=== PATIENT | female | born 1930 | race Caucasian/White ===

== ENCOUNTER → 2017-10-26 | Outpatient (CLI) | payer MEDICARE, MEDICAID ==
[2017-09-02 09:29] VITALS: BMI 19.8
[~2017-10-26] MED LIST: ACE325 PO; ACET-2043 PO; ACID1TAB2 PO; ALTE2VIA2 IVP; AMOX-556 PO; ASCO1TAB5 CHEW; ASPERCREME TOP; ASPI-1471 PO; ASPI81TA94 PO; BISA-236 RC; BISA10SU66 PR; CALC-1173 PO; CALC-734 PO; CALC1TAB46 PO; CALC200T16 PO; CALC3.7S10; CALC3.7S10 NS; CALC3.7S6 NS; CALC600T63 PO; CEF300 PO; CEFT2VIA53 IV; CELE100C79 PO; CEP500 PO; CEPH-13 PO; CIPR-345 PO; CLO10 MT; Calcium Carbonate/Vitamin D3 PO; DICL500C66 PO; DILT120C18 PO; DILT120T13 PO; DILT240C76 PO; DILT240T PO; DOCU-202 PO; DOCU-416 PO; DULO30CA6 PO; ESTR42.59 VG; FOL1 PO; FOLI-68 PO; GABA-547 PO; GUAI600T57 PO; L.AC1CAP6 PO; LACT PO; LACT-214 PO; LAN30PT PO; LANS15CA54 PO; LEV112 PO; LEV125 PO; LEVO-3 PO; LEVO137T23 PO; LEVO150T78 PO; LEVO75TA73 PO; LEVO88TA45 PO; LID5T TP; LIDO1ADH44 TOP; LIDO20SO21 MM; LIDO700A19 TP; LIDO700A29 TD; MECL12.5 PO; MECL25TA9 PO; METH2.5T43 PO; METO-259 PO; METO50TA19 PO; MOM PO; NITR-105 PO; NYST15PO4 TP; OMEP-125 PO; ONDA4TAB PO; OXYC-865 PO; OXYC-869 PO; OXYC10TA19 PO; OXYC10TA67 PO; OXYC15TA PO; OXYC5CAP21 PO; OXYC5TAB38 PO; OXYGENHOME INH; OXYM-15 ENA; OXYM15MI14 ENA; PER PO; POLY17PO21 PO; PRE5 PO; RANI-375 PO; SULF-198 PO; TRAM100T22 PO; VANC750P10 IV; VIT-7 PO; WAR1 PO; WAR25 PO; WARF-18 PO; WARF1TAB63 PO; WARF2.5T11 PO; WARF3TAB43 PO; WARF4TAB54 PO; [UNRECOGNIZED DRUG - CODE] IVP; [UNRECOGNIZED DRUG - CODE] PO; [UNRECOGNIZED DRUG - CODE] PO; potassium PO
== END ==
LOC: AMB 18:04
PROVIDERS: ATTEND Nurse Practitioner
DX: R53.81 Other malaise (principal)
CPT/HCPCS: A0425; A0428

== ENCOUNTER → 2017-11-06 | Outpatient (CLI) | payer MEDICARE, MEDICAID ==
[2017-09-02 09:29] VITALS: BMI 19.8
[~2017-11-06] MED LIST changes: -VANC750P10 IV; +VANC750P6 IV
[2017-11-06 08:33] LABS: INR 2.22
== END ==
LOC: ZZSPRING 00:49
PROVIDERS: ATTEND Family Medicine
DX: Z51.81 Encounter for therapeutic drug level monitoring (principal); Z79.01 Long term (current) use of anticoagulants
CPT/HCPCS: 36415; 85610

== ENCOUNTER → 2017-11-12 | Outpatient (CLI) | payer MEDICARE, MEDICAID ==
[2017-09-02 09:29] VITALS: BMI 19.8
[~2017-11-12] MED LIST changes: +VANC750P10 IV; -VANC750P6 IV
== END ==
LOC: ZZSPRING 01:52
PROVIDERS: ATTEND Family Medicine
DX: E03.9 Hypothyroidism, unspecified (principal)
CPT/HCPCS: 36415; 84443

== ENCOUNTER → 2017-11-18 | Outpatient (CLI) | payer MEDICARE, MEDICAID ==
[2017-09-02 09:29] VITALS: BMI 19.8
== END ==
LOC: LAB 14:07
PROVIDERS: ATTEND Family Medicine
DX: M81.0 Age-related osteoporosis without current pathological fracture (principal)
CPT/HCPCS: 36415; 82306

== ENCOUNTER → 2017-12-03 | Outpatient (CLI) | payer MEDICARE, MEDICAID ==
[2017-09-02 09:29] VITALS: BMI 19.8
[~2017-12-03] MED LIST changes: +DEN60I SUBQ; +METH57CR TP
[2017-12-03 09:32] LABS: INR 1.75
== END ==
LOC: ZZSPRING 02:32
PROVIDERS: ATTEND Family Medicine
DX: Z51.81 Encounter for therapeutic drug level monitoring (principal); Z79.01 Long term (current) use of anticoagulants
CPT/HCPCS: 36415; 85610

== ENCOUNTER → 2017-12-10 | Outpatient (CLI) | payer MEDICARE, MEDICAID ==
[2017-09-02 09:29] VITALS: BMI 19.8
[~2017-12-10] MED LIST changes: +NYST15CR32 TP
[2017-12-10 08:59] LABS: INR 1.67
== END ==
LOC: ZZSPRING 02:04
PROVIDERS: ATTEND Family Medicine
DX: Z51.81 Encounter for therapeutic drug level monitoring (principal); Z79.01 Long term (current) use of anticoagulants
CPT/HCPCS: 36415; 85610

== ENCOUNTER → 2017-12-13 | Outpatient (REF) | payer MEDICARE, MEDICAID ==
[2017-09-02 09:29] VITALS: BMI 19.8
== END ==
LOC: ZZSPRING 22:37
PROVIDERS: ATTEND Family Medicine
DX: R30.0 Dysuria (principal); R35.0 Frequency of micturition; B96.89 Other specified bacterial agents as the cause of diseases classified elsewhere
CPT/HCPCS: 81001; 87088

== ENCOUNTER → 2017-12-17 | Outpatient (CLI) | payer MEDICARE, MEDICAID ==
[2017-09-02 09:29] VITALS: BMI 19.8
[~2017-12-17] MED LIST changes: -WARF-18 PO; +WARF1TAB15 PO; -WARF1TAB63 PO; +WARF3TAB14 PO; -WARF3TAB43 PO; +WARF5TAB23 PO
[2017-12-17 09:15] LABS: INR 1.64
== END ==
LOC: ZZSPRING 01:42
PROVIDERS: ATTEND Family Medicine
DX: Z51.81 Encounter for therapeutic drug level monitoring (principal); Z79.01 Long term (current) use of anticoagulants
CPT/HCPCS: 36415; 85610

== ENCOUNTER → 2017-12-24 | Outpatient (CLI) | payer MEDICARE, MEDICAID ==
[2017-09-02 09:29] VITALS: BMI 19.8
[2017-12-24 08:44] LABS: INR 2.03
== END ==
LOC: ZZSPRING 03:02
PROVIDERS: ATTEND Family Medicine
DX: E03.9 Hypothyroidism, unspecified (principal); Z79.01 Long term (current) use of anticoagulants
CPT/HCPCS: 36415; 84439; 84443; 85610

== ENCOUNTER → 2018-01-07 | Outpatient (CLI) | payer MEDICARE, MEDICAID ==
[2017-09-02 09:29] VITALS: BMI 19.8
[2018-01-07 09:03] LABS: INR 2.13
== END ==
LOC: ZZSPRING 00:35
PROVIDERS: ATTEND Family Medicine
DX: Z51.81 Encounter for therapeutic drug level monitoring (principal); E03.9 Hypothyroidism, unspecified; Z79.01 Long term (current) use of anticoagulants
CPT/HCPCS: 36415; 84436; 84443; 85610

== ENCOUNTER → 2018-01-14 | Outpatient (CLI) | payer MEDICARE, MEDICAID ==
[2017-09-02 09:29] VITALS: BMI 19.8
== END ==
LOC: LAB 11:08
PROVIDERS: ATTEND Family Medicine
DX: R30.0 Dysuria (principal); B96.89 Other specified bacterial agents as the cause of diseases classified elsewhere
CPT/HCPCS: 81001; 87088

== ENCOUNTER → 2018-01-21 | Outpatient (CLI) | payer MEDICARE, MEDICAID ==
[2017-09-02 09:29] VITALS: BMI 19.8
[~2018-01-21] MED LIST changes: +CEPH500C24 PO
[2018-01-21 09:05] LABS: INR 1.93
== END ==
LOC: ZZSPRING 01-20 08:18
PROVIDERS: ATTEND Family Medicine
DX: Z79.01 Long term (current) use of anticoagulants (principal); N39.0 Urinary tract infection, site not specified
CPT/HCPCS: 36415; 85610

== ENCOUNTER → 2018-02-04 | Outpatient (CLI) | payer MEDICARE, MEDICAID ==
[2017-09-02 09:29] VITALS: BMI 19.8
[~2018-02-04] MED LIST changes: +LEVO175T42 PO
[2018-02-04 08:41] LABS: INR 2.04
== END ==
LOC: ZZSPRING 02:45
PROVIDERS: ATTEND Family Medicine
DX: E03.9 Hypothyroidism, unspecified (principal); Z79.01 Long term (current) use of anticoagulants
CPT/HCPCS: 36415; 85610

== ENCOUNTER → 2018-03-04 | Outpatient (CLI) | payer MEDICARE, MEDICAID ==
[2017-09-02 09:29] VITALS: BMI 19.8
[~2018-03-04] MED LIST changes: +WARF4TAB15 PO; -WARF4TAB54 PO
[2018-03-04 09:06] LABS: INR 2.37
== END ==
LOC: ZZSPRING 01:12
PROVIDERS: ATTEND Family Medicine
DX: I48.2 Chronic atrial fibrillation (principal); Z79.01 Long term (current) use of anticoagulants
CPT/HCPCS: 36415; 84443; 85610

== ENCOUNTER 2018-03-10 20:29 | Inpatient (IN) | payer MEDICARE, MEDICAID ==
[~2018-03-10] VITALS: Ht 172.7 cm; Wt 56.0 kg
[~2018-03-10 20:29] MED LIST changes: -ACET-2146 PO; -CEPH500T7 PO; -DEXT15DR19 OP; -FURO40TA35 PO; -OXYC-823 PO; -POTA-23 PO; -PRED15SO5 OP
--- NOTE | 2018-03-10 20:49 | ER Report ---
History and Physical Time Seen By MD: 20:38 Hx. of Stated Complaint: chest pain, sob that started tonight around dinner time HPI/ROS Patient's is an 88-year-old female transferred from care home for episode of chest pain. Patient is a clear and good historian. She notes that for the past 2 weeks she has had chest pain episodes in the evening. She has been at rest when these occurred. She states that she feels a tightness in her chest and it is associated with feeling short of breath. She states these episodes have lasted up to 30 minutes. She has never had these during the morning or early afternoon. It has never awakened her from sleep. Tonight, it seemed to be a little stronger and lasting longer. This is what prompted her to tell staff and resulted in her transfer. Patient notes that symptoms have improved somewhat in route. She still notes some persisting pressure. She rates it as a 4 on a 10 scale. She states typically she has had it in the evening it is been more of a 7 on a 10 scale. Patient note associated mild shortness of breath. However at this time, she is not feeling short of breath. She denies nausea. Denies abdominal pain. She denies radiation of pain or pressure into the arms or the neck. She does have some off-and-on back pain that appears to be more musculoskeletal in nature by her history. Patient does note that the chest pain episodes have occurred around dinnertime. But she does not note any significant change of either improving or worsening with food or fluid intake REVIEW OF SYSTEMS: Constitutional: No fever, chills Eyes: Negative ENT: Denies sore throat or ear pain Respiratory: As above. Denies cough or wheeze Cardiac: As above. Gastrointestinal: Denies abdominal pain, nausea, or vomiting Genitourinary: Negative Musculoskeletal: No back pain. She does note chronic swelling in her lower extremities. Skin: No acute rashes Neurological: Denies headache or acute neurologic findings Allergies: Coded Allergies: codeine (Unverified Allergy, Severe, ANAPHYLAXIS, 03/10/18) morphine (Verified Allergy, Severe, ANAPHYLAXIS, 03/10/18) Home Meds Active Scripts Oxycodone HCl (Oxycodone HCl ER) 15 Mg Tab.er.12h, 15 MG PO BID for 30 Days, # 60 TAB Prov:NADJA SAMSON MD 02/28/18 Levothyroxine Sodium (LEVOTHYROXINE SODIUM) 175 Mcg Tablet, 175 MCG PO QDAY for 90 Days, #90 TAB Prov:NADJA SAMSON MD 02/28/18 Oxycodone Hcl (OXYCODONE HCL) 5 Mg Tablet, 5 MG PO QDAY Y for pain for 30 Days, #30 TAB Prov:NADJA SAMSON MD 02/14/18 Cephalexin Monohydrate (CEPHALEXIN) 500 Mg Cap, 500 MG PO BID for 7 Days, #14 CAP Prov:NADJA SAMSON MD 01/17/18 Warfarin Sodium (WARFARIN SODIUM) 3 Mg Tablet, 3 MG PO DIRECTED, #90 TAB 1 Refill As directed. Prov:NADJA SAMSON MD 01/10/18 Diltiazem Hcl (DILTIAZEM 24HR ER) 240 Mg Cap.er.24h, 1 CAP PO QDAY, #90 TAB 1 Refill Prov:NADJA SAMSON MD 01/03/18 NYSTATIN 890967 UNT/ML Topical Cream (NYSTATIN 049123 UNT/ML Topical Cream) 15 Gm Cream..g., 1 JOSEF TP PRN for 30 Days, #1 TUBE Prov:NADJA SAMSON MD 12/17/17 Methyl Salicylate/Menth/Camph (BENGAY ULTRA STRENGTH CRM) 57 Gm Cream..g., 1 JOSEF TP QID Y for PRN, #1 TUBE 11 Refills Apply topically to back and ribs QID PRN Prov:NADJA SAMSON MD 12/04/17 Ranitidine Hcl (ZANTAC 75) 75 Mg Tablet, 1 TAB PO DAILY, #90 TAB 4 Refills Prov:NADJA SAMSON MD 12/03/17 Lactose-Free Food (ENSURE PLUS) 237 Ml Liquid, 1 BOTTLE PO TID, #90 BOTTLE 11 Refills [place] flavor Prov:NADJA SAMSON MD 10/24/17 Estradiol (ESTRACE) 42.5 Gm Cream.appl, 1 GM VG twice weekly for 90 Days, #90 JOSEF Prov:NADJA SAMSON MD 10/24/17 Gabapentin (GABAPENTIN) 100 Mg Capsule, 1-3 CAP PO BID, #180 CAPSULE 11 Refills take one cap in the am and three cap in the pm Prov:NADJA SAMSON MD 10/15/17 Polyethylene Glycol 3350 (POLYETHYLENE GLYCOL 3350) 17 Gm Powd.pack, 17 GM PO QDAY, #30 PACKET Prov:DAVID MERCADO MD 09/05/17 Calcium Carbonate (CALCIUM ANTACID) 200 Mg Tab.chew, 500-1000 MG PO QID Y for heartburn, #100 TAB.CHEW Prov:DAVID MERCADO MD 09/05/17 Acetaminophen (ACETAMINOPHEN) 500 Mg Tablet, 500 MG PO Q6H Y for PAIN, #100 TAB Prov:DAVID MERCADO MD 09/05/17 Acetaminophen (ACETAMINOPHEN) 500 Mg Tablet, 500 MG PO Q6H, #120 TAB 11 Refills Prov:JENNIFER MILLS APRN [employer] 08/29/17 Docusate Sodium (COLACE) 100 Mg Capsule, 1 CAP PO BID, #180 CAPSULE 3 Refills Prov:JENNIFER MILLS APRN [employer] 03/11/17 Bisacodyl (DULCOLAX) 10 Mg Supp.rect, 1 SUPP.RECT RC DAILY Y for CONSTIPATION, # 15 SUPP.RECT 11 Refills Prov:MURTAZA CANTU MD 02/13/17 Reported Medications Calcium Carbonate/Vitamin D3 (CALCIUM 500 + D TABLET) 1 Each Tablet, 1 TAB PO BID 10/30/17 Vit A,C & E/Lutein/Minerals (OCUVITE TABLET) 1 Each Tablet, 1 EACH PO DAILY 10/07/17 Ascorbic Acid/Vitamin E/Biotin (Hair Skin Nails-Biotin Gummies) 1 Each Tab.chew , 1 TAB CHEW DAILY 10/07/17 Warfarin Sodium (WARFARIN SODIUM) 5 Mg Tablet, 3 MG PO QDAY, TAB 3 mg Sun, Mon, , Wed, , Fri, Sat. Recheck INR. 1.5 mg Mon. Recheck IN. Retirement anticoagulation therapy 09/02/17 Magnesium Hydroxide (MILK OF MAGNESIA) 400 Mg/5 Ml Oral.susp, 30 ML PO DAILY Y for CONSTIPATION, BOTTLE 12/31/16 Oxygen (OXYGEN) Inha, 1 L INH, L 11/23/16 Past Medical/Surgical History Past medical history is significant for: Atrial fibrillation Urinary tract infections Hypothyroidism Rheumatoid arthritis History of osteomyelitis of the spine in 2017 Fractures right hip and compression fractures 2017 Hx Smoking: No Smoking Status: Former Smoker Exposure to Second Hand Smoke?: Yes Hx Substance Use Disorder: No Hx Alcohol Use: No Constitutional Vital Sign - Last 24 Hours 03/10/18 03/10/18 03/10/18 03/10/18 20:27 20:31 20:44 20:44 Temp 98.9 Pulse 92 89 Resp 18 18 B/P (MAP) 112/76 112/76 (88) Pulse Ox 86 97 O2 Delivery Room Air O2 Flow Rate 2.0 03/10/18 03/10/18 03/10/18 03/10/18 20:49 21:05 21:19 21:30 Pulse 90 94 Resp 26 16 B/P (MAP) 144/84 (104) 131/83 (99) Pulse Ox 93 92 03/10/18 03/10/18 03/10/18 03/10/18 21:34 21:49 22:00 22:04 Pulse 92 ??? 101 Resp 20 26 B/P (MAP) 142/86 (104) Pulse Ox 94 95 03/10/18 03/10/18 03/10/18 22:19 22:34 22:41 Pulse 106 103 108 Resp 30 Pulse Ox 95 97 Physical Exam General Appearance: The patient is alert, has no immediate need for airway protection and no signs of toxicity. [ ] Eyes: Pupils equal and round no pallor or injection. ENT, Mouth: Mucous membranes are moist. Respiratory: There are no retractions or increased work of breathing. Patient does have crackles in both lung lyons without overt rales. No wheezes are noted. Cardiovascular: Irregular rate and rhythm. 2/6 systolic murmur[ ] Gastrointestinal: Abdomen is soft and non tender, no masses, bowel sounds normal. Neurological: Patient is alert oriented appropriate. Cranial nerves II through XII are grossly intact. There are no focal or cerebellar findings noted. Skin: Warm and dry, no rashes. Musculoskeletal: Neck is supple non tender. Lower extremities show bilateral pedal edema left side greater than right with positive pitting to mid tibia. Upper extremities are unremarkable. Back is nontender to palpation but patient does complain of movement discomfort which is typical for her. DIFFERENTIAL DIAGNOSIS: After history and physical exam differential diagnosis was considered for chest pain including but not limited to myocardial ischemia, pericarditis pulmonary embolus, chest wall pain, pleural inflammation and pulmonary infectious causes. I also considered congestive heart failure. I considered GI etiologies including gastroesophageal reflux Medical Decision Making Data Points Result Diagram: 03/10/18203703/10/182037 Laboratory Hematology Test 03/10/18 20:38 03/10/18 21:30 03/10/18 22:40 Red Blood Count 3.81 M/uL (4.17-5.56) Mean Corpuscular Volume 96.5 fL (80.0-96.0) Mean Corpuscular Hemoglobin 32.8 pg (26.0-33.0) Mean Corpuscular Hemoglobin Concent 34.0 g/dL (32.0-36.0) Red Cell Distribution Width 13.0 % (11.5-14.5) Mean Platelet Volume 9.5 fL (7.2-11.1) Neutrophils (%) (Auto) 58.8 % (39.4-72.5) Lymphocytes (%) (Auto) 21.5 % (17.6-49.6) Monocytes (%) (Auto) 14.1 % (4.1-12.4) Eosinophils (%) (Auto) 4.4 % (0.4-6.7) Basophils (%) (Auto) 1.2 % (0.3-1.4) Nucleated RBC Relative Count (auto) 0.0 /100WBC Neutrophils # (Auto) 1.9 K/uL (2.0-7.4) Lymphocytes # (Auto) 0.7 K/uL (1.3-3.6) Monocytes # (Auto) 0.5 K/uL (0.3-1.0) Eosinophils # (Auto) 0.1 K/uL (0.0-0.5) Basophils # (Auto) 0.0 K/uL (0.0-0.1) Nucleated RBC Absolute Count (auto) 0.00 K/uL Prothrombin Time 25.1 seconds (12.0-14.4) Prothromb Time International Ratio 2.20 Sodium Level 134 mmol/L (137-145) Potassium Level 4.7 mmol/L (3.5-5.0) Chloride Level 91 mmol/L (98-107) Carbon Dioxide Level 29 mmol/L (22-31) Blood Urea Nitrogen 27 mg/dl (7-18) Creatinine 0.90 mg/dl (0.52-1.04) Glomerular Filtration Rate Calc 59.4 Random Glucose 123 mg/dl (75-110) Calcium Level 9.5 mg/dl (8.4-10.2) Total Bilirubin 0.6 mg/dl (0.2-1.3) Aspartate Amino Transf (AST/SGOT) 26 U/L (0-35) Alanine Aminotransferase (ALT/SGPT) 18 U/L (0-56) Alkaline Phosphatase 85 U/L (0-126) B-Type Natriuretic Peptide 772 pg/ml (0-100) Total Protein 7.7 gm/dl (6.3-8.2) Albumin 4.1 g/dl (3.5-5.0) Urine Color Yellow Urine Clarity Slightly-cloudy Urine pH 8.0 pH (4.8-9.5) Urine Specific [place] 1.014 Urine Protein Negative mg/dL (NEGATIVE) Urine Glucose (UA) Negative mg/dL (NEGATIVE) Urine Ketones Negative mg/dL (NEGATIVE) Urine Blood Negative (NEGATIVE) Urine Nitrite Negative (NEGATIVE) Urine Bilirubin Negative (NEGATIVE) Urine Urobilinogen Negative mg/dL (0.2-1.9) Urine Leukocyte Esterase Large (NEGATIVE) Urine RBC 2 /HPF (0-2/HPF) Urine WBC 18 /HPF (0-5/HPF) Urine Squamous Epithelial Cells Many /LPF (</=FEW) Urine Triple Phosphate Crystals Few /HPF (NONE) Urine Bacteria Negative /HPF (NONE-FEW) Urine Mucus None /HPF (NONE-FEW) Troponin I < 0.012 ng/ml Chemistry Test 03/10/18 20:38 03/10/18 21:30 03/10/18 22:40 White Blood Count 3.3 k/uL (4.5-11.0) Red Blood Count 3.81 M/uL (4.17-5.56) Hemoglobin 12.5 g/dL (12.0-16.0) Hematocrit 36.7 % (34.0-47.0) Mean Corpuscular Volume 96.5 fL (80.0-96.0) Mean Corpuscular Hemoglobin 32.8 pg (26.0-33.0) Mean Corpuscular Hemoglobin Concent 34.0 g/dL (32.0-36.0) Red Cell Distribution Width 13.0 % (11.5-14.5) Platelet Count 153 K/uL (150-450) Mean Platelet Volume 9.5 fL (7.2-11.1) Neutrophils (%) (Auto) 58.8 % (39.4-72.5) Lymphocytes (%) (Auto) 21.5 % (17.6-49.6) Monocytes (%) (Auto) 14.1 % (4.1-12.4) Eosinophils (%) (Auto) 4.4 % (0.4-6.7) Basophils (%) (Auto) 1.2 % (0.3-1.4) Nucleated RBC Relative Count (auto) 0.0 /100WBC Neutrophils # (Auto) 1.9 K/uL (2.0-7.4) Lymphocytes # (Auto) 0.7 K/uL (1.3-3.6) Monocytes # (Auto) 0.5 K/uL (0.3-1.0) Eosinophils # (Auto) 0.1 K/uL (0.0-0.5) Basophils # (Auto) 0.0 K/uL (0.0-0.1) Nucleated RBC Absolute Count (auto) 0.00 K/uL Prothrombin Time 25.1 seconds (12.0-14.4) Prothromb Time International Ratio 2.20 Glomerular Filtration Rate Calc 59.4 Calcium Level 9.5 mg/dl (8.4-10.2) Total Bilirubin 0.6 mg/dl (0.2-1.3) Aspartate Amino Transf (AST/SGOT) 26 U/L (0-35) Alanine Aminotransferase (ALT/SGPT) 18 U/L (0-56) Alkaline Phosphatase 85 U/L (0-126) B-Type Natriuretic Peptide 772 pg/ml (0-100) Total Protein 7.7 gm/dl (6.3-8.2) Albumin 4.1 g/dl (3.5-5.0) Urine Color Yellow Urine Clarity Slightly-cloudy Urine pH 8.0 pH (4.8-9.5) Urine Specific [place] 1.014 Urine Protein Negative mg/dL (NEGATIVE) Urine Glucose (UA) Negative mg/dL (NEGATIVE) Urine Ketones Negative mg/dL (NEGATIVE) Urine Blood Negative (NEGATIVE) Urine Nitrite Negative (NEGATIVE) Urine Bilirubin Negative (NEGATIVE) Urine Urobilinogen Negative mg/dL (0.2-1.9) Urine Leukocyte Esterase Large (NEGATIVE) Urine RBC 2 /HPF (0-2/HPF) Urine WBC 18 /HPF (0-5/HPF) Urine Squamous Epithelial Cells Many /LPF (</=FEW) Urine Triple Phosphate Crystals Few /HPF (NONE) Urine Bacteria Negative /HPF (NONE-FEW) Urine Mucus None /HPF (NONE-FEW) Troponin I < 0.012 ng/ml Coagulation Test 03/10/18 20:38 Prothrombin Time 25.1 seconds Prothromb Time International Ratio 2.20 Urinalysis Test 03/10/18 21:30 Urine Color Yellow Urine Clarity Slightly-cloudy Urine pH 8.0 pH (4.8-9.5) Urine Specific [place] 1.014 Urine Protein Negative mg/dL (NEGATIVE) Urine Glucose (UA) Negative mg/dL (NEGATIVE) Urine Ketones Negative mg/dL (NEGATIVE) Urine Blood Negative (NEGATIVE) Urine Nitrite Negative (NEGATIVE) Urine Bilirubin Negative (NEGATIVE) Urine Urobilinogen Negative mg/dL (0.2-1.9) Urine Leukocyte Esterase Large (NEGATIVE) Urine RBC 2 /HPF (0-2/HPF) Urine WBC 18 /HPF (0-5/HPF) Urine Squamous Epithelial Cells Many /LPF (</=FEW) Urine Triple Phosphate Crystals Few /HPF (NONE) Urine Bacteria Negative /HPF (NONE-FEW) Urine Mucus None /HPF (NONE-FEW) EKG/Imaging EKG Interpretation 12 lead EKG: Rhythm: Atrial fibrillation with a rate 75-100 Left axis deviation Patient has delayed R-wave progression consistent with age indeterminate anteroseptal infarct. There do not appear to be acute ST-T changes. Twelve-lead EKG is somewhat similar to twelve-lead noted on the chart though there are some differences in the precordial lead transition with a currently more pronounced poor R-wave progression that could be consistent with previous ischemic insult Monitor Interpretation: Atrial Fibrillation ED Course/Re-evaluation ED Course Data is reviewed. CBC, chemistries, and troponin are reassuring. INR is as expected. These results are reviewed with previous and no significant change. Chest x-ray shows increased interstitial densities consistent with interstitial fluid. BNP is elevated at 772. In review of past, this is higher than she has ever been previously. With the previous high at 278 03/10/2018 10:11:26 pm At this time, patient notes less chest discomfort. She did receive Tylenol for back pain. She denies being short of breath. She has been up to the restroom to urinate and urinalysis is pending. Patient denied any UTI symptoms but we will check the urine given her history. 03/10/2018 10:46:05 pm Approximately 20 minutes ago, patient's rhythm on the monitor was noted to change. Patient had a sudden change in factor on her monitor strip. When nursing personnel went into the room to check on the patient she had been asleep and was just waking up complaining of chest pain. Monitor did appear to show a short asystolic period. There was no evidence that the leads had come off , but the patient was holding on her chest and it's possible that what we were seeing on the monitor as a few seconds of asystole could have been artifact. Patient did note to the nurse, at that time, that she had some short-lived increase in her chest discomfort. I discussed the findings of my workup with the patient. These include the EKG findings, the chest x-ray showing some slight increasing congestion, the elevated BNP. I discussed options with the patient which included the option for admission for observation and monitoring overnight versus consideration of going home with close follow-up. This discussion was prior to seeing some questionable monitor changes noted above. But at this time, patient was more comfortable with being in the hospital. In the department, patient was given some Tylenol for pain. This improved not only her back pain but also her chest discomfort. I considered giving her some nitroglycerin or even a small amount and nitroglycerin paste, however with the low blood pressure and the minimal symptoms I opted not to do this emergently. Review of her history shows her blood pressure to be consistent with previous readings. Decision to Disposition Date: March 10, 2018 Decision to Disposition Time: 22:00 Depart Departure Latest Vital Signs Vital Signs Date Time Temp Pulse Resp B/P (MAP) Pulse Ox O2 Delivery O2 Flow Rate FiO2 03/10/18 22:41 108 03/10/18 22:34 97 03/10/18 22:19 30 03/10/18 22:00 142/86 (104) 03/10/18 20:44 2.0 03/10/18 20:27 98.9 Room Air Impression: Primary Impression: Chest pain Additional Impressions: Congestive heart disease Abnormal ECG Condition: Condition Unchanged Disposition: Admitted from ER Referrals: NADJA SAMSON MD (PCP) MD Consult Note: I discussed the case with hospitalist on-call. At this time I feel the patient is showing some increase in her BNP with evidence of some increased interstitial fluid on her chest x-ray consistent with very mild congestive failure. She has been in a persistent atrial fibrillation and had one episode of factor change on her EKG. And a questionable episode of an asystolic positive. Her EKG while not showing evidence of acute ST changes does show some anterior septal changes that are slightly different from her previous. I suspect the patient has undergone some ischemic heart disease since she has been seen previously and including the potential for an MRI. Her troponin at this time is negative. I do not think there is anything to acutely intervene with from the standpoint of cardiac ischemia. But I do feel that she needs further workup and treatment. At this time, with her comfortable in the department I will get her admitted. I will defer the decision on starting any diuretics, nitrates, or other interventions to the admitting physician I confirmed with the patient her code status request. These are consistent with the paperwork from the care home. Patient does not want to be intubated, R have mechanical ventilation. She does not want to have CPR. She does not want to have defibrillation. However she is interested in having medical management of her medical conditions. Problem Qualifiers Primary Impression: Chest pain Chest pain type: unspecified Qualified Codes: R07.9 - Chest pain, unspecified Additional Impressions: Congestive heart disease Heart failure type: unspecified Heart failure chronicity: unspecified Qualified Codes: I50.9 - Heart failure, unspecified HOUSTON FLAHERTY MD March 10, 2018 20:49
[2018-03-10 20:50] LABS: PLATELET COUNT, AUTOMATED 153 K/uL (150-450)
--- NOTE | 2018-03-10 20:58 | EKG ---
[place] [facility] [place] NOVA BLANCA : [id number] MR: [id number] V: [id number] EXAM DATE: ORDERING PHYSICIAN: HOUSTON FLAHERTY TECHNOLOGIST: POLA Test Reason : CP Blood Pressure : / mmHG Vent. Rate : 092 BPM Atrial Rate : 394 BPM P-R Int : 000 ms QRS Dur : 110 ms QT Int : 360 ms P-R-T Axes : 000 -36 103 degrees QTc Int : 445 ms Atrial fibrillation Left axis deviation Incomplete left bundle branch block Diffuse ST-T abnormalities Abnormal ECG Confirmed by BART MERCADO ([id number] on 03/11/2018 5:54:49 AM Referred By: Confirmed By:BART MERCADO
--- NOTE | 2018-03-10 21:01 | RADIOLOGY IMAGING REPORT ---
[place] [facility] [place] NAME: Effie Ordonez : 1930 MR: [id number] V: [id number] EXAM DATE: ORDERING PHYSICIAN: HOUSTON FLAHERTY TECHNOLOGIST: [place] [facility] [place] Effie Ordonez : 1930 Visit/Account:[id number] Date of Sevice: 03/10/2018 CHEST SINGLE AP Provided history: Chest pain Additional pertinent history: none One view obtained COMPARISON STUDIES: 10/26/17 FINDINGS: Support lines and tubes: None. Lungs / pleura / avinash: There are prominent diffuse reticular and somewhat reticular nodular densitie s throughout both lungs new from the prior examination. There is no confluence and there is no pleura l fluid. Heart / mediastinum /vessels: Negative Nodules / masses: None significant Bones / body wall: Negative Lower neck / Upper abdomen: Negative IMPRESSION: New diffuse interstitial infiltrates. Considerations include a recent episode of acute pulmonary anni a, interstitial pneumonia and interstitial pneumonitis/drug reaction. Short-term follow-up will help distinguish. Report Dictated By: Marquis Shah MD at 03/10/2018 8:53 PM Report E-Signed By: Marquis Shah MD at 03/10/2018 8:57 PM WSN:[id number]
[2018-03-10 21:08] LABS: INR 2.2
[2018-03-10] MEDS ORDERED: ACETAMINOPHEN 325 MG TAB PO ONE (21:10)
[2018-03-10 23:03] VITALS: BP 120/93
[2018-03-10] MEDS ORDERED: FLUSH 10 ML SYR IVP PRN (23:30)
[2018-03-10] MEDS ORDERED: INFLUENZA VIRUS VAC 0.5 ML SYR IM ONLY ONE (23:30)
--- NOTE | 2018-03-10 23:59 | History & Physical ---
History of Present Illness Chief Complaint Chest pain History of Present Illness 88yo female with PMHx significant for chronic atrial fibrillation, hypothyroidism, vertebral osteomyelitis. She reports episodic chest pressure occurring late in the day for the past few weeks. She states she has some associated dyspnea and nausea (no emesis). She denies any relieving factors and states "just need to let it go away". She has not appreciated any heart racing, but is aware of her irregular rhythm. Some dry cough for past few weeks as well. No fevers or chills. Her lower extremities have been swelling more than previously. She was evaluated in the ER and found an elevated BNP, normal troponin, chronic changes on her EKG, interstitial prominence on CXR. She was recommended for admission. History Problems: (1) Vertebral osteomyelitis (2) Fracture of right superior pubic ramus Status: Resolved (3) Fracture of right inferior pubic ramus Status: Resolved (4) Compression fracture Status: Resolved (5) Ribs, multiple fractures Status: Resolved (6) Chronic pain Status: Chronic (7) Hip fracture requiring operative repair Status: Resolved (8) Urinary tract infection Status: Resolved (9) Cholelithiasis and cholecystitis without obstruction Onset Date: 01/25/2015 Status: Resolved (10) HYPOTHYROIDISM, UNSPECIFIED Status: Chronic (11) CHRONIC ATRIAL FIBRILLATION Status: Chronic (12) Rheumatoid arthritis Status: Chronic (13) S/P cholecystectomy Status: Resolved Home Meds Active Scripts Oxycodone HCl (Oxycodone HCl ER) 15 Mg Tab.er.12h, 15 MG PO BID for 30 Days, # 60 TAB Prov:NADJA SAMSON MD 02/28/18 Levothyroxine Sodium (LEVOTHYROXINE SODIUM) 175 Mcg Tablet, 175 MCG PO QDAY for 90 Days, #90 TAB Prov:NADJA SAMSON MD 02/28/18 Oxycodone Hcl (OXYCODONE HCL) 5 Mg Tablet, 5 MG PO QDAY Y for pain for 30 Days, #30 TAB Prov:NADJA SAMSON MD 02/14/18 Cephalexin Monohydrate (CEPHALEXIN) 500 Mg Cap, 500 MG PO BID for 7 Days, #14 CAP Prov:NADJA SAMSON MD 01/17/18 Warfarin Sodium (WARFARIN SODIUM) 3 Mg Tablet, 3 MG PO DIRECTED, #90 TAB 1 Refill As directed. Prov:NADJA SAMSON MD 01/10/18 Diltiazem Hcl (DILTIAZEM 24HR ER) 240 Mg Cap.er.24h, 1 CAP PO QDAY, #90 TAB 1 Refill Prov:NADJA SAMSON MD 01/03/18 NYSTATIN 184607 UNT/ML Topical Cream (NYSTATIN 528910 UNT/ML Topical Cream) 15 Gm Cream..g., 1 JOSEF TP PRN for 30 Days, #1 TUBE Prov:NADJA SAMSON MD 12/17/17 Methyl Salicylate/Menth/Camph (BENGAY ULTRA STRENGTH CRM) 57 Gm Cream..g., 1 JOSEF TP QID Y for PRN, #1 TUBE 11 Refills Apply topically to back and ribs QID PRN Prov:NADJA SAMSON MD 12/04/17 Ranitidine Hcl (ZANTAC 75) 75 Mg Tablet, 1 TAB PO DAILY, #90 TAB 4 Refills Prov:NADJA SAMSON MD 12/03/17 Lactose-Free Food (ENSURE PLUS) 237 Ml Liquid, 1 BOTTLE PO TID, #90 BOTTLE 11 Refills [place] flavor Prov:NADJA SAMSON MD 10/24/17 Estradiol (ESTRACE) 42.5 Gm Cream.appl, 1 GM VG twice weekly for 90 Days, #90 JOSEF Prov:NADJA SAMSON MD 10/24/17 Gabapentin (GABAPENTIN) 100 Mg Capsule, 1-3 CAP PO BID, #180 CAPSULE 11 Refills take one cap in the am and three cap in the pm Prov:NADJA SAMSON MD 10/15/17 Polyethylene Glycol 3350 (POLYETHYLENE GLYCOL 3350) 17 Gm Powd.pack, 17 GM PO QDAY, #30 PACKET Prov:DAVID MERCADO MD 09/05/17 Calcium Carbonate (CALCIUM ANTACID) 200 Mg Tab.chew, 500-1000 MG PO QID Y for heartburn, #100 TAB.CHEW Prov:DAVID MERCADO MD 09/05/17 Acetaminophen (ACETAMINOPHEN) 500 Mg Tablet, 500 MG PO Q6H Y for PAIN, #100 TAB Prov:DAVID MERCADO MD 09/05/17 Acetaminophen (ACETAMINOPHEN) 500 Mg Tablet, 500 MG PO Q6H, #120 TAB 11 Refills Prov:JENNIFER MILLS APRN [employer] 08/29/17 Docusate Sodium (COLACE) 100 Mg Capsule, 1 CAP PO BID, #180 CAPSULE 3 Refills Prov:JENNIFER MILLS APRN [employer] 03/11/17 Bisacodyl (DULCOLAX) 10 Mg Supp.rect, 1 SUPP.RECT RC DAILY Y for CONSTIPATION, # 15 SUPP.RECT 11 Refills Prov:MURTAZA CANTU MD 02/13/17 Reported Medications Calcium Carbonate/Vitamin D3 (CALCIUM 500 + D TABLET) 1 Each Tablet, 1 TAB PO BID 10/30/17 Vit A,C & E/Lutein/Minerals (OCUVITE TABLET) 1 Each Tablet, 1 EACH PO DAILY 10/07/17 Ascorbic Acid/Vitamin E/Biotin (Hair Skin Nails-Biotin Gummies) 1 Each Tab.chew , 1 TAB CHEW DAILY 10/07/17 Warfarin Sodium (WARFARIN SODIUM) 5 Mg Tablet, 3 MG PO QDAY, TAB 3 mg Sun, Sat, , Wed, , Sat, Sat. Recheck INR. 1.5 mg Mon. Recheck IN. Group Home anticoagulation therapy 09/02/17 Magnesium Hydroxide (MILK OF MAGNESIA) 400 Mg/5 Ml Oral.susp, 30 ML PO DAILY Y for CONSTIPATION, BOTTLE 12/31/16 Oxygen (OXYGEN) Inha, 1 L INH, L 11/23/16 Allergies: Coded Allergies: codeine (Unverified Allergy, Severe, ANAPHYLAXIS, 03/10/18) morphine (Verified Allergy, Severe, ANAPHYLAXIS, 03/10/18) Other Social/Family Hx She currently resides at [facility] Hx Smoking: No Smoking Status: Former Smoker Exposure to Second Hand Smoke?: Yes Caffeine Intake: Tea Caffeine/Cups Per Day: 1 cup, usually decaffeinated Hx Alcohol Use: No Hx Substance Use Disorder: No Review of Systems Constitutional: No Fever, No Chills, No Night Sweats Neurological: Weakness, No Syncope Eyes: No Vision Change, No Loss of Vision ENT: No Hearing Loss Cardiovascular: Chest Pain, Palpitations Respiratory: Shortness of Breath, Cough Gastrointestinal: Nausea, No Vomiting, Diarrhea, Hematemesis, Hematochezia, Melena, Abdominal Pain Exam Vital Signs Vital Signs Date Time Temp Pulse Resp B/P (MAP) Pulse Ox O2 Delivery O2 Flow Rate FiO2 03/10/18 23:03 98.2 96 16 120/93 (102) 96 Nasal Cannula 1.0 General Appearance: Alert, Awake Neuro: No Gross deficits Eyes: PERRLA ENT: Oropharynx Clear Neck: Other (JVD present at ~30 degrees) Cardiovascular: Other (Irregular with systolic murmur) Respiratory: Other (rales at both bases/no wheezes) Chest: No Tenderness GI: Abd Soft and Non-Tender : No CVA Tenderness Extremities: Warm, Perfused, Edema (2+ both LE) Integumentary: Generalized Fragile Skin Psych: Alert & Oriented X3 Medical Decision Making Data Points Result Diagram: 03/10/18203703/10/182037 Item Value Date Time Urine Color Yellow 03/10/182129 Urine Clarity Slightly-cloudy 03/10/182129 Urine pH 8.0 pH 03/10/182129 Urine Specific [place] 1.014 03/10/182129 Urine Protein Negative mg/dL 03/10/182129 Urine Glucose (UA) Negative mg/dL 03/10/182129 Urine Ketones Negative mg/dL 03/10/182129 Urine Blood Negative 03/10/182129 Urine Nitrite Negative 03/10/182129 Urine Bilirubin Negative 03/10/182129 Urine Urobilinogen Negative mg/dL 03/10/182129 Urine Leukocyte Esterase Large H 03/10/182129 Urine RBC 2 /HPF 03/10/182129 Urine WBC 18 /HPF 03/10/180 Urine Squamous Epithelial Cells Many /LPF H 03/10/180 Urine Triple Phosphate Crystals Few /HPF H 03/10/182129 Urine Bacteria Negative /HPF 03/10/180 Urine Mucus None /HPF 03/10/182129 Troponin I < 0.012 ng/ml 03/10/18 2240 Troponin I < 0.012 ng/ml 03/10/182037 Albumin 4.1 g/dl 03/10/182037 Total Protein 7.7 gm/dl 03/10/182037 B-Type Natriuretic Peptide 772 pg/ml H 03/10/182037 Alkaline Phosphatase 85 U/L 03/10/182037 Alanine Aminotransferase (ALT/SGPT) 18 U/L 03/10/182037 Aspartate Amino Transf (AST/SGOT) 26 U/L 03/10/182037 Total Bilirubin 0.6 mg/dl 03/10/182037 Calcium Level 9.5 mg/dl 03/10/182037 Prothromb Time International Ratio 2.20 03/10/182037 Prothrombin Time 25.1 seconds H 03/10/182037 EKG / Imaging Imaging PATIENT NAME: Effie Ordonez : 1930 MR: [id number] V: [id number] EXAM DATE: ORDERING PHYSICIAN: HOUSTON FLAHERTY TECHNOLOGIST: Location: [facility] - [place] Patient: Effie Ordonez : 1930 Visit/Account:[id number] Date of Sevice: 03/10/2018 CHEST SINGLE AP Provided history: Chest pain Additional pertinent history: none One view obtained COMPARISON STUDIES: 10/26/17 FINDINGS: Support lines and tubes: None. Lungs / pleura / avinash: There are prominent diffuse reticular and somewhat reticular nodular densities throughout both lungs new from the prior examination. There is no confluence and there is no pleural fluid. Heart / mediastinum /vessels: Negative Nodules / masses: None significant Bones / body wall: Negative Lower neck / Upper abdomen: Negative IMPRESSION: New diffuse interstitial infiltrates. Considerations include a recent episode of acute pulmonary edema, interstitial pneumonia and interstitial pneumonitis/ drug reaction. Short-term follow-up will help distinguish. Report Dictated By: Marquis Shah MD at 03/10/2018 8:53 PM Report E-Signed By: Marquis Shah MD at 03/10/2018 8:57 PM [id number] Assessment and Plan Problems: (1) Discomfort in chest Status: Acute Assessment & Plan: Her symptoms could reflect ischemic episodes vs. possible CHF. Will admit for further evaluation and monitoring. Check serial troponins. Check echocardiogram. Monitor on telemetry. (2) CHRONIC ATRIAL FIBRILLATION Status: Chronic Assessment & Plan: She has been managed with oral diltiazem and warfarin. Her INR is therapeutic. Her HR appears to be controlled. Will monitor. (3) HYPOTHYROIDISM, UNSPECIFIED Status: Chronic Assessment & Plan: She is on replacement therapy. Will check TSH. Modify if needed. (4) Pyuria Status: Acute Assessment & Plan: She has had recurrent UTIs. Will check culture. Treat if needed. Copies to: NADJA SAMSON MD Venous Thromboembolism Antithrombotics Is Pt On Any Antithrombotics?: Yes Exam Sepsis Risk: No Definite Risk BART MERCADO MD March 10, 2018 23:59
[2018-03-11] MEDS: CALCIUM CARBONATE 500 MG CHEW PO PRN ×2 (01:24→23:58)
[2018-03-11] MEDS: ACETAMINOPHEN 325 MG TAB PO PRN ×4 (01:24→23:59)
[2018-03-11 04:59] VITALS: BP 119/95
[2018-03-11 05:55] LABS: PLATELET COUNT, AUTOMATED 135 K/uL (150-450)
[2018-03-11 06:04] LABS: INR 2.36
[2018-03-11] MEDS: LEVOTHYROXINE SOD 0.175 MG TAB PO SCH (06:13)
[2018-03-11] MEDS: oxyCODONE HCL 5 MG CAP PO PRN ×3 (06:17→19:27)
[2018-03-11 09:18] VITALS: BP 124/74
--- NOTE | 2018-03-11 09:48 | Hospitalist Progress Note ---
Subjective Progress Notes Subjective This patient was admitted for chest pain. She had no acute changes overnight. Physical Exam Vital Signs Date Time Temp Pulse Resp B/P (MAP) Pulse Ox O2 Delivery O2 Flow Rate FiO2 03/11/18 09:18 98.2 105 16 124/74 (91) 92 Nasal Cannula 1.0 Cardiovascular: Regular Rate and Rhythm Respiratory: Clear to Auscultation Result Diagram: 03/11/18 0530 03/11/18 0530 Item Value Date Time Troponin I 0.075 ng/ml 03/11/18 0530 Monitor Interpretation: Atrial Fibrillation Assessment and Plan Problems: (1) Discomfort in chest Status: Acute Assessment & Plan: She did present with chest pain. Her troponin series has been negative to this point, but there is another level pending for later this morning. Her EKG showed non specific ST changes. An echocardiogram is pending. (2) CHRONIC ATRIAL FIBRILLATION Status: Chronic Assessment & Plan: She is on chronic treatment with oral diltiazem and warfarin. Her INR is therapeutic. (3) HYPOTHYROIDISM, UNSPECIFIED Status: Chronic Assessment & Plan: She is on chronic treatment with Synthroid. A TSH is pending. (4) Pyuria Status: Acute Assessment & Plan: Her urine showed large leukocytes, but it was a contaminated sample. A urine culture is pending. She is not complaining of urinary symptoms. Exam Sepsis Risk: Sepsis Risk JOSH HOLDER DO March 11, 2018 09:48
[2018-03-11] MEDS: DOCUSATE SODIUM 100 MG CAP PO SCH ×2 (09:58→21:21)
[2018-03-11] MEDS: GABAPENTIN 100 MG CAP PO SCH (09:58)
[2018-03-11] MEDS: RANITIDINE HCL 150 MG TAB PO SCH (09:58)
[2018-03-11] MEDS: POLYETHYLENE GLYCOL 17 GM PKT PO SCH (09:59)
[2018-03-11] MEDS: DILTIAZEM CD 120 MG CAPCR PO SCH (09:59)
[2018-03-11 10:23] VITALS: Ht 172.7 cm; Wt 56.0 kg
[2018-03-11 12:54] VITALS: BP 142/86
[2018-03-11] MEDS: WARFARIN SOD 3 MG TAB PO SCH (13:00)
[2018-03-11] MEDS ORDERED: FUROSEMIDE 40 MG/4 ML VIAL IVP ONE (14:30)
[2018-03-11 15:35] VITALS: BP 108/95
[2018-03-11] MEDS ORDERED: ACET-2146 PO (15:41)
[2018-03-11] MEDS ORDERED: WARF3TAB14 PO (18:49)
[2018-03-11 20:07] VITALS: BP 124/95
[2018-03-11] MEDS: GABAPENTIN 300 MG CAP PO SCH (21:00)
[2018-03-11 23:32] VITALS: BP 114/87
[2018-03-12] MEDS ORDERED: LACT-214 PO (02:27)
[2018-03-12] MEDS ORDERED: MOM PO (02:39)
[2018-03-12] MEDS ORDERED: PRED15SO5 OP (02:39)
[2018-03-12] MEDS ORDERED: DEXT15DR19 OP (02:39)
[2018-03-12] MEDS ORDERED: NYST15CR32 TP (02:39)
[2018-03-12 03:22] VITALS: BP 122/81
[2018-03-12] MEDS: oxyCODONE HCL 5 MG CAP PO PRN ×3 (04:50→19:10)
[2018-03-12] MEDS: LEVOTHYROXINE SOD 0.175 MG TAB PO SCH (06:10)
[2018-03-12 06:51] LABS: INR 2.45
[2018-03-12 07:42] VITALS: BP 121/92
[2018-03-12] MEDS: ACETAMINOPHEN 325 MG TAB PO PRN ×2 (08:00→17:58)
[2018-03-12] MEDS: POLYETHYLENE GLYCOL 17 GM PKT PO SCH (09:31)
[2018-03-12] MEDS: DOCUSATE SODIUM 100 MG CAP PO SCH ×2 (09:31→20:29)
[2018-03-12] MEDS: DILTIAZEM CD 120 MG CAPCR PO SCH (09:31)
[2018-03-12] MEDS: GABAPENTIN 100 MG CAP PO SCH (09:31)
[2018-03-12] MEDS: LISINOPRIL 5 MG TAB PO SCH (09:32)
[2018-03-12] MEDS: RANITIDINE HCL 150 MG TAB PO SCH (09:32)
[2018-03-12] MEDS ORDERED: ceFAZolin 1 GM VIAL IVP SCH (11:00)
[2018-03-12 11:36] VITALS: BP 122/95
[2018-03-12] MEDS: FUROSEMIDE 40 MG/4 ML VIAL IVP SCH (12:02)
[2018-03-12] MEDS ORDERED: NS(*) 0.9% 250 ML BAG 250 ML IV PRN (12:15)
[2018-03-12] MEDS: WARFARIN SOD 3 MG TAB PO SCH (12:28)
[2018-03-12] MEDS: ceFAZolin(*) 1 GM VIAL 1 GM in NS(*) 0.9% 100 ML ADDVANT BAG 100 ML IV SCH ×2 (12:30→19:16)
--- NOTE | 2018-03-12 12:49 | RADIOLOGY IMAGING REPORT ---
FACILITY[place] [facility] [place]IENT NAME: NOVA BLANCA : [id number] MR: [id number] V: [id number] EXAM DATE: ORDERING PHYSICIAN: JOSH HOLDER TECHNOLOGIST: Vicki Palencia EXAMINATION:TWO-DIMENSIONAL ECHOCARDIOGRAPH REASON:CONGESTIVE HEART FAILURE 2D Measurements (normal values in centimeters) LV endLV endRV endVent.LV PostAorticLeftPercent DiastolicSystolicDiastolicSeptumWallRootAtriumShortening (3.5-5.7)(0.9-2.6)(0.6-1.1)(0.6-1.1)(2.0-3.7)(1.9-4.0)(25-35%) [id number]% STROKE VOLUME: 34.4ml ESTIMATED EJECTION FRACTION:39% PARASTERNAL LONG AXIS: Patient is in atrial fibrillation with a rapid heart rate. There is decreased left ventricular systolic function. Left atrium appears to be enlarged. Right ventricle also appears to be enlarged. Aortic valve was somewhat sclerotic but does not appear to be stenotic. There is also some mitral annular calcification. Color examination of the mitral valve reveals a significant amount of mitral insufficiency. Color examination of the aortic valve reveals some aortic insufficiency. PARASTERNAL SHORT AXIS: Left ventricular systolic function again appears to be decreased. There is some generalized hypokinesis. Again the patient is in atrial fibrillation with a rapid ventricular response. No thrombi are noted in any of the chambers. Left atrial appendage is not seen. Aortic valve is trileaflet in configuration with aortic sclerosis. Color examination of the pulmonic valve reveals a trace of pulmonic insufficiency. Color examination of the tricuspid valve reveals some tricuspid insufficiency present. There is also some aortic insufficiency. APICAL FOUR AND TWO CHAMBER: Aortic valve area was measured within normal ranges at 2.0cm2. The tricuspid regurgitation Vmax measured 4.08m/sec. Estimated right atrial pressure is 8mm Hg. The left atrial volume is significantly increased at 40ml/m2. Right atrial volume is mildly increased at 27ml/m2. Severe amount of mitral insufficiency is noted & moderate to borderline severe amount of tricuspid insufficiency is noted. SUBCOSTAL VIEW: There may be a small amount of pericardial effusion noted. There is an echogenic area noted in the pleural space of uncertain etiology. It appears to be somewhat gelatinous & could possibly be a small thrombus. Right ventricle appears to contract normally. Aortic insufficiency pressure half time is measured at 299msec. OVERALL IMPRESSION: 1. Decreased left ventricular ejection fraction estimated to be about 39%. Definity contrast was used. 2. Borderline severe left atrial enlargement & mild to moderate right atrial enlargement. Right ventricle is also borderline to mildly enlarged. 3. A trileaflet aortic valve with a moderate amount of aortic insufficiency with mild aortic sclerosis but no stenosis. 4. Moderate to severe amount of mitral insufficiency & moderate amount of tricuspid insufficiency & a trace to mild amount of pulmonic insufficiency. The estimated right ventricular systolic pressure is 75mm Hg which does include an estimated right atrial pressure of 8mm Hg indicating severe pulmonary hypertension & increased right ventricular systolic pressures. 5. There is a somewhat gelatinous small mass in the pericardium by the right ventricle or on the rv free wall. I am unsure of its etiology. It could possibly be a small thrombus & there is a small amount of pericardial effusion noted. There is no hard evidence for any tamponade. There is some mitral annular calcification without mitral stenosis. Dictated by: Hira Castellon M.D. on 03/11/2018 at 18:08 Transcribed by: ROZINA on 03/12/2018 at 8:42 Approved by: Hira Castellon M.D. on 03/12/2018 at 12:47 [facility]
--- NOTE | 2018-03-12 14:56 | Medical Nutrition Therapy ---
Nutrition Anthropometrics Height (Inches): 68.00 Height (Calculated Centimeters: 172.596679 Weight (Pounds): 128 Weight (Calculated Kilograms): 58.060 BMI Calculated: 21.74 Stephen Nutrition Score: Adequate Stephen Nutrition Risk Score: 17 Dietary Referral Nutrition Risk Factors: Nutrition Risk Comment: Physical Findings Physical Appearance: BMI 19.5 Skin Appearance Skin Appearance: Edema Edema Location Modifier: Both Edema Location: cantu Type of Edema: Degree of Edema: 3+ Gastrointestinal Symptoms GI Symtoms: Tube Present: Bowel Sounds: Recent Bowel Pattern: Stool Characteristics: Nutritional Diagnosis Nutritional Risk Acuity 3: Fair Appetite Nutritional Risk Acuity 4: %IBW 90-100% Past Medical History: hypothyroid, a-fib, UTI, rheumatoid arthrthritis, osteomyelitis, chest pain, Nutritional Acuity: 3-Mild Nutrition Diagnosis: Inadequate Food Intake Nutrition Etiology: Inadeq. Food/Brigida Intake, Physiological Causes Nutrition Problem/Etiology/Sym: Inadequate food intake related to inadequate food intake of 25-75% small portions AEB lower BMI 19.5 Energy Requirement: 1531 ([place] with AF 1.3 1392 X SF 1.1 = 1531) Protein Requirement: 58 (1g/ kg 1X58.06kg ) Fluid Requirement: 1450 (25ml/kg 25X58.06) Diet Type: Diet as Tolerated COCO/REG Nutrition Intervention: Cont diet as ordered, Encourage intake, Between meal supplement Drug: Warfarin Do Not Serve Any of the Follow: Broccoli, Brussel Sprouts, Spinach, [place] Lettuce, Cranberry Juice Diet Comment To RSA: OFFER NUTRITIONAL SUPPLEMENT Nutrition Monitoring & Eval Nutrition Goals: Eat 50-100% Meal RD Patient Assessment Time: [address] Assessment Type: RD Assessment Patient Nutrition Acuity: 3-Mild Follow Up Date: March 15, 2018 Nutritional Comment: 03/11 Pt admitted for tight chest pain and shortness of breath. Pt experince these episodes after meal time. Pt troponin 0.075. However, pt does not note any significant change of either improving or worsening with food or fluid intake. Pt Na is slightly low 135, however she is taking a Na supplement. Cl- levels are low 96, elevated BUN 21 and elevated random blood glucose 111. Pt is on COCO/REG diet. No food intake has been recorded. Continue to monitor pt troponin levels and encourage fluid intake. If troponin continues to rise, pt my benefit nutrition ed. on CHF diet. 03/12: No acute changes at this time. Pt remains on COCO/REG, consuming 25%-75% of her meals. Meal portions being both small and regular sizes. Offer nutrition supplement to help pt meet nutritional needs. Continue to monitor pt progress and encourage intake.-REJI YEUNG March 12, 2018 14:13
[2018-03-12 15:05] VITALS: BP 120/76
[2018-03-12] MEDS: POTASSIUM CHL 20 MEQ TABCR PO SCH (17:51)
[2018-03-12 19:21] VITALS: BP 134/84
[2018-03-12] MEDS: GABAPENTIN 300 MG CAP PO SCH (20:28)
--- NOTE | 2018-03-12 21:36 | Hospitalist Progress Note ---
Subjective Progress Notes Subjective Mrs. Ordonez is an 88yo female with PMHx significant for chronic atrial fibrillation, hypothyroidism, vertebral osteomyelitis. She reports episodic chest pressure occurring late in the day for the past few weeks. She states she has some associated dyspnea and nausea (no emesis). She denies any relieving factors and states "just need to let it go away". She has not appreciated any heart racing, but is aware of her irregular rhythm. Some dry cough for past few weeks as well. No fevers or chills. Her lower extremities have been swelling more than previously. She was evaluated in the ER and found an elevated BNP, normal troponin, chronic changes on her EKG, interstitial prominence on CXR. She was recommended for admission. 03/12: She is afebrile and hemodynamically stable without any significant complaint except urinary symptoms. Her U/A is positive and her UCX is growing GNR. She responded well to the Lasix and her BNP is 772. Her troponin is 0.044 down from 0.075. She is on Coumadin and her INR is 2.45 and she is on Cardizem for her chronic a.fib. She is in mild CHF. Her LVEF is 40% Patient Complains of: Neurological: No: Confusion, Weakness, Dizziness Cardiovascular: No: Chest Pain, Palpitations Respiratory: Cough, Congestion, Shortness of Breath, No: Wheezing Gastrointestinal: No Nausea, No Vomiting, No Flatus, No Bowel Movement Genitourinary: Dysuria, No Hematuria Musculoskeletal: No: Pain, Sprain, Strain, Impaired Mobility Physical Exam Vital Signs Date Time Temp Pulse Resp B/P (MAP) Pulse Ox O2 Delivery O2 Flow Rate FiO2 03/12/18 19:45 100 03/12/18 19:45 92 Nasal Cannula 1.0 03/12/18 19:21 98.2 16 134/84 (101) Intake and Output 03/13/18 07:00 Intake Total 1440 ml Output Total 1675 ml Balance -235 ml Intake Oral 1310 ml IV Total 130 ml Output Urine Total 1675 ml # Voids 1 # Bowel Movements 2 General Appearance: Alert, Awake, No Acute Distress, Afebrile Neuro: No Gross deficits Eyes: PERRLA ENT: Normal Cardiovascular: Other (in chronic a.fib) Respiratory: No Respiratory Distress, Other (few rales noted) GI: Soft and Non-Tender Extremities: Edema Psych: Alert & Oriented X3, Appropriate Mood & Affect Result Diagram: 03/11/18 0530 03/12/18 0603 Monitor Interpretation: Atrial Fibrillation Assessment and Plan Problems: (1) CHF (congestive heart failure) Status: Acute Assessment & Plan: 03/12: She is in mild decompensation of CHF and I will continue her Lasix 40mg IV and Zestril 5mg. I will get BMP, BNP, CBC and CXR in am (2) Discomfort in chest Status: Acute Assessment & Plan: She did present with chest pain. Her troponin series has been negative to this point, but there is another level pending for later this morning. Her EKG showed non specific ST changes. An echocardiogram is pending. 03/12: Her Echo shows high R-sided pressures and LVEF is 40%. I will continue Lasix 40mg IV (3) CHRONIC ATRIAL FIBRILLATION Status: Chronic Assessment & Plan: She is on chronic treatment with oral diltiazem and warfarin. Her INR is therapeutic. 03/12: I will continue her Cardizem and Coumadin and get PT/INR in am (4) HYPOTHYROIDISM, UNSPECIFIED Status: Chronic Assessment & Plan: She is on chronic treatment with Synthroid. A TSH is pending. 03/12: Her TSH is in normal range and I will continue the same dose of Synthroid. (5) Pyuria Status: Acute Assessment & Plan: Her urine showed large leukocytes, but it was a contaminated sample. A urine culture is pending. She is not complaining of urinary symptoms. 03/12: Her U/A is positive and her UCX is growing GNR. I will start Ancef 1gm IV q 8h for UTI Condition improving Time Spent on Plan of Care: > 30 min Copies to: NADJA SAMSON MD Heart Failure Ejection Fraction %: 40 NYHA Class: II Is Patient on DYANA Inhibitor?: Yes Exam Sepsis Risk: Sepsis Risk Problem Qualifiers (1) CHF (congestive heart failure): Heart failure type: systolic ZHANNA STRINGER MD March 12, 2018 21:36
[2018-03-12 22:53] VITALS: BP 109/68
[2018-03-13] MEDS: ceFAZolin(*) 1 GM VIAL 1 GM in NS(*) 0.9% 100 ML ADDVANT BAG 100 ML IV SCH ×3 (03:18→19:41)
[2018-03-13] MEDS: oxyCODONE HCL 5 MG CAP PO PRN ×3 (03:21→18:31)
[2018-03-13 03:22] VITALS: BP 123/78
[2018-03-13] MEDS: LEVOTHYROXINE SOD 0.175 MG TAB PO SCH (05:48)
[2018-03-13] MEDS: ACETAMINOPHEN 325 MG TAB PO PRN ×3 (05:49→19:41)
[2018-03-13 06:08] LABS: PLATELET COUNT, AUTOMATED 136 K/uL (150-450)
[2018-03-13 06:25] LABS: INR 2.61
[2018-03-13 07:48] VITALS: BP 117/74
[2018-03-13] MEDS: GABAPENTIN 100 MG CAP PO SCH (09:48)
[2018-03-13] MEDS: DOCUSATE SODIUM 100 MG CAP PO SCH ×2 (09:49→20:52)
[2018-03-13] MEDS: LISINOPRIL 5 MG TAB PO SCH (09:49)
[2018-03-13] MEDS: POTASSIUM CHL 20 MEQ TABCR PO SCH ×2 (09:49→18:31)
[2018-03-13] MEDS: RANITIDINE HCL 150 MG TAB PO SCH (09:49)
[2018-03-13] MEDS: DILTIAZEM CD 120 MG CAPCR PO SCH (09:49)
[2018-03-13] MEDS: POLYETHYLENE GLYCOL 17 GM PKT PO SCH (09:50)
[2018-03-13] MEDS: FUROSEMIDE 40 MG/4 ML VIAL IVP SCH (09:50)
[2018-03-13] MEDS: WARFARIN SOD 3 MG TAB PO SCH (13:37)
[2018-03-13 15:29] VITALS: BP 110/71
--- NOTE | 2018-03-13 16:28 | Hospitalist Progress Note ---
Subjective Progress Notes Subjective Mrs. Ordonez is an 88yo female with PMHx significant for chronic atrial fibrillation, hypothyroidism, vertebral osteomyelitis. She reports episodic chest pressure occurring late in the day for the past few weeks. She states she has some associated dyspnea and nausea (no emesis). She denies any relieving factors and states "just need to let it go away". She has not appreciated any heart racing, but is aware of her irregular rhythm. Some dry cough for past few weeks as well. No fevers or chills. Her lower extremities have been swelling more than previously. She was evaluated in the ER and found an elevated BNP, normal troponin, chronic changes on her EKG, interstitial prominence on CXR. She was recommended for admission. 03/12: She is afebrile and hemodynamically stable without any significant complaint except urinary symptoms. Her U/A is positive and her UCX is growing GNR. She responded well to the Lasix and her BNP is 772. Her troponin is 0.044 down from 0.075. She is on Coumadin and her INR is 2.45 and she is on Cardizem for her chronic a.fib. She is in mild CHF. Her LVEF is 40% Patient Complains of: Neurological: No: Confusion, Weakness, Dizziness Cardiovascular: No: Chest Pain, Palpitations Respiratory: No: Cough, Congestion, Shortness of Breath Gastrointestinal: No Nausea, No Vomiting, No Flatus, No Bowel Movement Genitourinary: No Dysuria, No Hematuria Musculoskeletal: No: Pain, Sprain, Strain Physical Exam Vital Signs Date Time Temp Pulse Resp B/P (MAP) Pulse Ox O2 Delivery O2 Flow Rate FiO2 03/13/18 15:29 98.4 82 16 110/71 (84) 93 Nasal Cannula 1.0 Intake and Output 03/14/18 06:59 Intake Total 240 ml Balance 240 ml Intake Oral 240 ml # Voids 1 General Appearance: Alert, Awake, No Acute Distress, Afebrile Neuro: No Gross deficits Eyes: PERRLA ENT: Normal Cardiovascular: Normal Rhythm & Peripheral Pulses, No JVD Respiratory: No Respiratory Distress GI: Soft and Non-Tender Extremities: Soft and Non Tender, Edema Psych: Alert & Oriented X3, Appropriate Mood & Affect Result Diagram: 03/13/1852403/13/18524 Monitor Interpretation: Atrial Fibrillation Assessment and Plan Problems: (1) CHF (congestive heart failure) Status: Acute Assessment & Plan: 03/12: She is in mild decompensation of CHF and I will continue her Lasix 40mg IV and Zestril 5mg. I will get BMP, BNP, CBC and CXR in am 03/13: She is responding to Lasix with BNP of 520 from 770 I will continue the same management Possible d/c back to spring after her UCX-ID/S and adjustment of oral antibiotic (2) Pyuria Status: Acute Assessment & Plan: Her urine showed large leukocytes, but it was a contaminated sample. A urine culture is pending. She is not complaining of urinary symptoms. 03/12: Her U/A is positive and her UCX is growing GNR. I will start Ancef 1gm IV q 8h for UTI 03/13: Her ID/S is still pending as per microbiology I will continue her current antibiotics (3) Discomfort in chest Status: Acute Assessment & Plan: She did present with chest pain. Her troponin series has been negative to this point, but there is another level pending for later this morning. Her EKG showed non specific ST changes. An echocardiogram is pending. 03/12: Her Echo shows high R-sided pressures and LVEF is 40%. I will continue Lasix 40mg IV (4) CHRONIC ATRIAL FIBRILLATION Status: Chronic Assessment & Plan: She is on chronic treatment with oral diltiazem and warfarin. Her INR is therapeutic. 03/12: I will continue her Cardizem and Coumadin and get PT/INR in am (5) HYPOTHYROIDISM, UNSPECIFIED Status: Chronic Assessment & Plan: She is on chronic treatment with Synthroid. A TSH is pending. 03/12: Her TSH is in normal range and I will continue the same dose of Synthroid. Time Spent on Plan of Care: < 30 min Copies to: NADJA SAMSON MD Heart Failure Ejection Fraction %: 40 NYHA Class: II Is Patient on DYANA Inhibitor?: Yes Exam Sepsis Risk: Sepsis Risk Problem Qualifiers (1) CHF (congestive heart failure): Heart failure type: systolic ZHANNA STRINGER MD March 13, 2018 16:28
[2018-03-13 19:03] VITALS: BP 121/66
[2018-03-13] MEDS: GABAPENTIN 300 MG CAP PO SCH (20:52)
[2018-03-13] MEDS: CALCIUM CARBONATE 500 MG CHEW PO PRN (22:21)
[2018-03-14 00:06] VITALS: BP 110/69
[2018-03-14] MEDS: oxyCODONE HCL 5 MG CAP PO PRN ×2 (01:34→08:41)
[2018-03-14 03:19] VITALS: BP 92/66
[2018-03-14] MEDS: ceFAZolin(*) 1 GM VIAL 1 GM in NS(*) 0.9% 100 ML ADDVANT BAG 100 ML IV SCH (03:31)
[2018-03-14] MEDS: ACETAMINOPHEN 325 MG TAB PO PRN (03:36)
[2018-03-14] MEDS: LEVOTHYROXINE SOD 0.175 MG TAB PO SCH (05:22)
[2018-03-14 05:47] LABS: INR 3.36
[2018-03-14 07:39] VITALS: BP 115/64
[2018-03-14] MEDS: POLYETHYLENE GLYCOL 17 GM PKT PO SCH (08:40)
[2018-03-14] MEDS: DOCUSATE SODIUM 100 MG CAP PO SCH (08:41)
[2018-03-14] MEDS: GABAPENTIN 100 MG CAP PO SCH (08:41)
[2018-03-14] MEDS: RANITIDINE HCL 150 MG TAB PO SCH (08:41)
[2018-03-14] MEDS: DILTIAZEM CD 120 MG CAPCR PO SCH (08:41)
[2018-03-14] MEDS: POTASSIUM CHL 20 MEQ TABCR PO SCH (08:41)
[2018-03-14] MEDS: LISINOPRIL 5 MG TAB PO SCH (08:41)
[2018-03-14] MEDS ORDERED: WARF3TAB14 PO ×2 (09:17)
[2018-03-14] MEDS ORDERED: OXYC5TAB38 PO (09:17)
[2018-03-14] MEDS ORDERED: OXYC-823 PO (09:17)
[2018-03-14] MEDS ORDERED: FURO40TA35 PO (09:20)
[2018-03-14] MEDS ORDERED: POTA-23 PO (09:20)
[2018-03-14] MEDS ORDERED: CEPH500T7 PO (09:23)
--- NOTE | 2018-03-14 09:23 | Hospitalist Depart ---
Discharge Summary Reason for Hosp/Final Diag: (1) CHF (congestive heart failure) Status: Acute Hospital Course & Plan: She was admitted for shortness of breath and edema. Her BNP was elevated and an echocardiogram showed a decreased ejection fraction at 40%. She was treated with several doses of IV Lasix and her symptoms improved. Her weight is down nearly 9Kg since admission. She will discharge on oral Lasix and has been instructed on daily weight monitoring. (2) UTI (urinary tract infection) Hospital Course & Plan: She did have large leukocytes in her urine, but it was a contaminated sample. Her culture has grown a gram negative ivy. She will complete a course of oral Keflex. (3) Discomfort in chest Status: Acute Hospital Course & Plan: She did present with chest pain. Her troponin series was negative. Her symptoms improved with diuresis. (4) CHRONIC ATRIAL FIBRILLATION Status: Chronic Hospital Course & Plan: She is on chronic treatment with oral diltiazem and warfarin. Her INR was slightly elevated prior to discharge. We have slightly decreased her weekly dose of warfarin. (5) HYPOTHYROIDISM, UNSPECIFIED Status: Chronic Hospital Course & Plan: She is on chronic treatment with Synthroid. A TSH was within normal limits. Departure Latest Vital Signs Vital Signs 03/14/18 03/14/18 03/14/18 03/14/18 07:39 08:43 09:06 09:10 Temp 98.2 Pulse 80 Resp 14 B/P (MAP) 115/64 (81) Pulse Ox 89 O2 Delivery Room Air O2 Flow Rate 1.0 Weight (Pounds): 123 Weight (Ounces): 9.0 Result Diagram: 03/13/18 0525 03/13/18 05 Condition: Improved Discharge: Assisted Living Discharge Code Status: DNR, DNI Follow-Up Labs: INR Discharge Instructions Home Meds Active Scripts Cephalexin 500 Mg Tab (KEFLEX 500 MG TAB) 500 Mg Tablet, 500 MG PO Q6H, #12 TAB Prov:JOSH HOLDER DO 03/14/18 Potassium Chloride (KLOR-CON 10) 10 Meq Tablet.er, 10 MEQ PO QDAY, #30 TAB Prov:JOSH HOLDER DO 03/14/18 Furosemide (LASIX) 40 Mg Tablet, 1 TAB PO DAILY, #30 TAB Prov:JOSH HOLDER DO 03/14/18 Warfarin Sodium (WARFARIN SODIUM) 3 Mg Tablet, 1.5 MG PO SuSa@1300, #30 TAB Prov:JOSH HOLDER DO 03/14/18 Warfarin Sodium (WARFARIN SODIUM) 3 Mg Tablet, 3 MG PO MoTuWeThFr@1300, #30 TAB Prov:JOSH HOLDER DO 03/14/18 Oxycodone Hcl (OXYCONTIN) 10 Mg Tab.er.12h, 10 MG PO Q12H, #30 TAB Prov:JOSH HOLDER DO 03/14/18 Oxycodone Hcl (OXYCODONE HCL) 5 Mg Tablet, 5 MG PO Q6H Y for pain, #30 TAB Prov:JOSH HOLDER DO 03/14/18 Levothyroxine Sodium (LEVOTHYROXINE SODIUM) 175 Mcg Tablet, 175 MCG PO QDAY for 90 Days, #90 TAB Prov:NADJA SAMSON MD 02/28/18 Diltiazem Hcl (DILTIAZEM 24HR ER) 240 Mg Cap.er.24h, 1 CAP PO QDAY, #90 TAB 1 Refill Prov:NADJA SAMSON MD 01/03/18 Ranitidine Hcl (ZANTAC 75) 75 Mg Tablet, 1 TAB PO DAILY, #90 TAB 4 Refills Prov:NADJA SAMSON MD 12/03/17 Estradiol (ESTRACE) 42.5 Gm Cream.appl, 1 GM VG twice weekly for 90 Days, #90 JOSEF Prov:NADJA SAMSON MD 10/24/17 Gabapentin (GABAPENTIN) 100 Mg Capsule, 1-3 CAP PO BID, #180 CAPSULE 11 Refills take one cap in the am and three cap in the pm Prov:NADJA SAMSON MD 10/15/17 Polyethylene Glycol 3350 (POLYETHYLENE GLYCOL 3350) 17 Gm Powd.pack, 17 GM PO QDAY, #30 PACKET Prov:DAVID MERCADO MD 09/05/17 Docusate Sodium (COLACE) 100 Mg Capsule, 1 CAP PO BID, #180 CAPSULE 3 Refills Prov:JENNIFER MILLS APRN [employer] NURSE-C 03/11/17 Bisacodyl (DULCOLAX) 10 Mg Supp.rect, 1 SUPP.RECT RC DAILY Y for CONSTIPATION, # 15 SUPP.RECT 11 Refills Prov:MURTAZA CANTU MD 02/13/17 Reported Medications Magnesium Hydroxide (MILK OF MAGNESIA) 400 Mg/5 Ml Oral.susp, 30 ML PO DAILY Y for CONSTIPATION, BOTTLE 03/12/18 Dextran 70/Hypromellose (ARTIFICIAL TEARS EYE DROPS) 15 Ml Drops, 1 DROP OP TID for Dry Eyes Apply 1 drop to each eye three times daily. 03/12/18 Prednisolone Sod Phos 15 Mg/5 Ml (PREDNISOLONE SOD PHOS 15 MG/5 ML) 15 Mg/5 Ml Solution, 1 DROP OP BID for Glaucoma, BOT Apply 1 drop to left eye BID. 03/12/18 Lactose-Free Food (ENSURE PLUS) 237 Ml Liquid, 237 ML PO BID 03/12/18 Calcium Carbonate/Vitamin D3 (CALCIUM 500 + D TABLET) 1 Each Tablet, 1 TAB PO BID 10/30/17 Oxygen (OXYGEN) Inha, 1 L INH, L 11/23/16 Discontinued Reported Medications NYSTATIN 455027 UNT/ML Topical Cream (NYSTATIN 945938 UNT/ML Topical Cream) 15 Gm Cream..g., 15 GM TP BID, GM Nystatin cream to buttock twice daily as needed. may be kept by [facility] nurse to be used if needed. 03/12/18 Warfarin Sodium (WARFARIN SODIUM) 3 Mg Tablet, 3 MG PO QDAY, TAB 3mg Saturday, Saturday, Saturday, , Saturday, and Saturday 1.5mg Saturday03/11/18 Acetaminophen 500 Mg Tab (ACETAMINOPHEN EXTRA STRENGTH) 500 Mg Tablet, 1000 MG PO TID, TAB 03/11/18 Vit A,C & E/Lutein/Minerals (OCUVITE TABLET) 1 Each Tablet, 1 EACH PO DAILY 10/07/17 Ascorbic Acid/Vitamin E/Biotin (Hair Skin Nails-Biotin Gummies) 1 Each Tab.chew , 1 TAB CHEW DAILY 10/07/17 Warfarin Sodium (WARFARIN SODIUM) 5 Mg Tablet, 3 MG PO QDAY, TAB 3 mg Sun, Sat, , Sat, , Sat, Sat. Recheck INR. 1.5 mg Mon. Recheck IN. [facility] anticoagulation therapy 09/02/17 Magnesium Hydroxide (MILK OF MAGNESIA) 400 Mg/5 Ml Oral.susp, 30 ML PO DAILY Y for CONSTIPATION, BOTTLE 12/31/16 Discontinued Scripts Oxycodone HCl (Oxycodone HCl ER) 15 Mg Tab.er.12h, 15 MG PO BID for 30 Days, # 60 TAB Prov:BJORE,NADJA M MD 02/28/18 Oxycodone Hcl (OXYCODONE HCL) 5 Mg Tablet, 5 MG PO QDAY Y for pain for 30 Days, #30 TAB Prov:NADJA SAMSON MD 02/14/18 Methyl Salicylate/Menth/Camph (BENGAY ULTRA STRENGTH CRM) 57 Gm Cream..g., 1 JOSEF TP QID Y for PRN, #1 TUBE 11 Refills Apply topically to back and ribs QID PRN Prov:NADJA SAMSON MD 12/04/17 Cephalexin Monohydrate (CEPHALEXIN) 500 Mg Cap, 500 MG PO BID for 7 Days, #14 CAP Prov:NADJA SAMSON MD 01/17/18 Lactose-Free Food (ENSURE PLUS) 237 Ml Liquid, 1 BOTTLE PO TID, #90 BOTTLE 11 Refills [place] flavor Prov:NADJA SAMSON MD 10/24/17 Calcium Carbonate (CALCIUM ANTACID) 200 Mg Tab.chew, 500-1000 MG PO QID Y for heartburn, #100 TAB.CHEW Prov:DAVID MERCADO MD 09/05/17 Warfarin Sodium (WARFARIN SODIUM) 3 Mg Tablet, 3 MG PO DIRECTED, #90 TAB 1 Refill As directed. Prov:NADJA SAMSON MD 01/10/18 NYSTATIN 259228 UNT/ML Topical Cream (NYSTATIN 753064 UNT/ML Topical Cream) 15 Gm Cream..g., 1 JOSEF TP PRN for 30 Days, #1 TUBE Prov:NADJA SAMSON MD 12/17/17 Acetaminophen (ACETAMINOPHEN) 500 Mg Tablet, 500 MG PO Q6H Y for PAIN, #100 TAB Prov:DAVID MERCADO MD 09/05/17 Acetaminophen (ACETAMINOPHEN) 500 Mg Tablet, 500 MG PO Q6H, #120 TAB 11 Refills Prov:JENNIFER MILLS APRNP-C 08/29/17 Diet: Fluid Restricted, 2 Gram Sodium (NA) Activity: As Tolerated, With Walker Special Instructions: Copies to: NADJA SAMSON MD Venous Thromboembolism Antithrombotics Is Pt On Any Antithrombotics?: Yes Heart Failure Ejection Fraction %: 40 NYHA Class: II Is Patient on DYANA Inhibitor?: Yes Problem Qualifiers (1) CHF (congestive heart failure): Heart failure type: systolic JOSH HOLDER DO March 14, 2018 09:22
[2018-03-16] MEDS ORDERED: WARFARIN SOD 3 MG TAB PO SCH (13:00)
== END 2018-03-14 10:40 | disposition home or self-care (01) | DRG 292 ==
LOC: ER 20:34 → MED 22:46 → INTOOBSV 22:46 → OBSVTOIN 03-11
PROVIDERS: ADMIT Internal Medicine; ATTEND Internal Medicine
DX: I50.21 Acute systolic (congestive) heart failure (principal); I48.2 Chronic atrial fibrillation; Z66 Do not resuscitate; Z79.01 Long term (current) use of anticoagulants; Z88.5 Allergy status to narcotic agent; N39.0 Urinary tract infection, site not specified; E03.9 Hypothyroidism, unspecified; Z90.49 Acquired absence of other specified parts of digestive tract
CPT/HCPCS: 36415; 71045; 81001; 82040; 82247; 82310; 82374; 82435; 82565; 82947; 83880; 84075; 84132; 84155; 84295; 84443; 84450; 84460; 84484; 84520; 85025; 85610; 87077; 87088; 87186; 93005; 99285; C8929; G0378; J0690; J1940; J7050; Q9957

== ENCOUNTER → 2018-03-10 | Outpatient (CLI) | payer MEDICARE, MEDICAID ==
[~2018-03-10] MED LIST changes: +ACET-2146 PO; +CEPH500T7 PO; +DEXT15DR19 OP; +FURO40TA35 PO; +OXYC-823 PO; +POTA-23 PO; +PRED15SO5 OP
[2018-03-11 10:23] VITALS: BMI 21.7
== END ==
LOC: AMB 20:11
PROVIDERS: ATTEND Nurse Practitioner
DX: R07.9 Chest pain, unspecified (principal); R06.00 Dyspnea, unspecified; I48.91 Unspecified atrial fibrillation
CPT/HCPCS: A0425; A0427

== ENCOUNTER 2018-03-12 14:53 | Outpatient (RCR) | payer MEDICARE, MEDICAID ==
[2018-03-11 10:23] VITALS: BMI 21.7
[~2018-03-12 14:53] MED LIST changes: +ACET-2146 PO; +DEXT15DR19 OP; +PRED15SO5 OP
[2018-03-14] MEDS ORDERED: WARF3TAB14 PO ×2 (09:17)
[2018-03-14] MEDS ORDERED: OXYC5TAB38 PO (09:17)
[2018-03-14] MEDS ORDERED: OXYC-823 PO (09:17)
[2018-03-14] MEDS ORDERED: POTA-23 PO (09:20)
[2018-03-14] MEDS ORDERED: FURO40TA35 PO (09:20)
[2018-03-14] MEDS ORDERED: CEPH500T7 PO (09:23)
[2018-03-25] MEDS ORDERED: POTA-23 PO (17:37)
[2018-03-25] MEDS ORDERED: FURO-45 PO (17:37)
--- NOTE | 2018-03-27 13:22 | Transitional Care Management ---
TCM Discharge Criteria Transitional Care Comment: 03/12 review CHF, "zones" and new lasix med today. Is engaged and asking questions. Gives own meds and eats breakfast in her room. Able to make choices re: some meals, when to take meds, activity etc. 03/15 called today andgonzalo states is doing OK-Tired- Not sure she wants a home visit 03/16 refused home visit. 03/27 unable to contact. will DC from program since she lives at [facility] and is being followed by their staff. MESERET COTTO March 27, 2018 13:22
[2018-03-27] MEDS ORDERED: OXYC-823 PO (18:24)
== END 2018-04-01 07:13 | disposition home or self-care (01) ==
LOC: TCM 14:53
PROVIDERS: ATTEND Nurse Practitioner
DX: Z02.9 Encounter for administrative examinations, unspecified (principal)

== ENCOUNTER → 2018-03-18 | Outpatient (CLI) | payer MEDICARE, MEDICAID ==
[2018-03-11 10:23] VITALS: BMI 21.7
[~2018-03-18] MED LIST changes: +CEPH500T7 PO; +FURO40TA35 PO; +OXYC-823 PO; +POTA-23 PO
[2018-03-18 09:10] LABS: INR 2.3
== END ==
LOC: ZZSPRING 00:54
PROVIDERS: ATTEND Family Medicine
DX: Z51.81 Encounter for therapeutic drug level monitoring (principal); I48.2 Chronic atrial fibrillation; Z79.01 Long term (current) use of anticoagulants
CPT/HCPCS: 36415; 85610

== ENCOUNTER → 2018-03-25 | Outpatient (CLI) | payer MEDICARE, MEDICAID ==
[2018-03-11 10:23] VITALS: BMI 21.7
[~2018-03-25] MED LIST changes: +FURO-45 PO
[2018-03-25 08:41] LABS: INR 2.51
== END ==
LOC: ZZSPRING 01:43
PROVIDERS: ATTEND Family Medicine
DX: I48.0 Paroxysmal atrial fibrillation (principal); I50.9 Heart failure, unspecified
CPT/HCPCS: 36415; 82310; 82374; 82435; 82565; 82947; 84132; 84295; 84520; 85610

== ENCOUNTER → 2018-04-08 | Outpatient (CLI) | payer MEDICARE, MEDICAID ==
[2018-03-11 10:23] VITALS: BMI 21.7
[~2018-04-08] MED LIST changes: +FURO-47 PO; +POTA20TA10 PO
[2018-04-08 08:31] LABS: INR 2.74
== END ==
LOC: ZZSPRING 01:29
PROVIDERS: ATTEND Family Medicine
DX: I48.2 Chronic atrial fibrillation (principal)
CPT/HCPCS: 36415; 85610

== ENCOUNTER → 2018-04-15 | Outpatient (CLI) | payer MEDICARE, MEDICAID ==
[2018-03-11 10:23] VITALS: BMI 21.7
== END ==
LOC: ZZSPRING 01:38
PROVIDERS: ATTEND Family Medicine
DX: R60.0 Localized edema (principal)
CPT/HCPCS: 36415; 82310; 82374; 82435; 82565; 82947; 84132; 84295; 84520

== ENCOUNTER → 2018-04-22 | Outpatient (CLI) | payer MEDICARE, MEDICAID ==
[2018-03-11 10:23] VITALS: BMI 21.7
[2018-04-22 09:18] LABS: INR 3.2
== END ==
LOC: ZZSPRING 00:44
PROVIDERS: ATTEND Family Medicine
DX: I48.2 Chronic atrial fibrillation (principal); I50.9 Heart failure, unspecified
CPT/HCPCS: 36415; 82310; 82374; 82435; 82565; 82947; 84132; 84295; 84520; 85610

== ENCOUNTER → 2018-04-28 | Outpatient (CLI) | payer MEDICARE, MEDICAID ==
[2018-03-11 10:23] VITALS: BMI 21.7
[~2018-04-28] MED LIST changes: +ACET500T68 PO; +LIDO700A19 TOP
[2018-04-28 09:19] LABS: INR 2.98
== END ==
LOC: LAB 08:21
PROVIDERS: ATTEND Internal Medicine Cardiovascular Disease
DX: I48.0 Paroxysmal atrial fibrillation (principal); R00.2 Palpitations
CPT/HCPCS: 36415; 82040; 82247; 82310; 82374; 82435; 82565; 82947; 84075; 84132; 84155; 84295; 84450; 84460; 84520; 85610

== ENCOUNTER → 2018-04-28 | Outpatient (CLI) | payer MEDICARE, MEDICAID ==
[2018-03-11 10:23] VITALS: BMI 21.7
== END ==
LOC: ZZSPRING 09:27
PROVIDERS: ATTEND Family Medicine
DX: I48.2 Chronic atrial fibrillation (principal)

== ENCOUNTER → 2018-05-06 | Outpatient (CLI) | payer MEDICARE, MEDICAID ==
[2018-03-11 10:23] VITALS: BMI 21.7
[2018-05-06 08:46] LABS: INR 2.76
== END ==
LOC: ZZSPRING 01:38
PROVIDERS: ATTEND Family Medicine
DX: I48.2 Chronic atrial fibrillation (principal)
CPT/HCPCS: 36415; 85610

== ENCOUNTER → 2018-06-03 | Outpatient (CLI) | payer MEDICARE, MEDICAID ==
[2018-03-11 10:23] VITALS: BMI 21.7
[2018-06-03 08:47] LABS: INR 2.81
== END ==
LOC: ZZSPRING 02:22
PROVIDERS: ATTEND Family Medicine
DX: Z51.81 Encounter for therapeutic drug level monitoring (principal); Z79.01 Long term (current) use of anticoagulants
CPT/HCPCS: 36415; 85610

== ENCOUNTER → 2018-06-10 | Outpatient (CLI) | payer MEDICARE, MEDICAID ==
[2018-03-11 10:23] VITALS: BMI 21.7
== END ==
LOC: ZZSPRING 01:15
PROVIDERS: ATTEND Family Medicine
DX: E03.9 Hypothyroidism, unspecified (principal); I50.9 Heart failure, unspecified
CPT/HCPCS: 36415; 82310; 82374; 82435; 82565; 82947; 84132; 84295; 84443; 84520

== ENCOUNTER → 2018-07-01 | Outpatient (CLI) | payer MEDICARE, MEDICAID ==
[2018-03-11 10:23] VITALS: BMI 21.7
[2018-07-01 08:28] LABS: INR 2.83
== END ==
LOC: ZZSPRING 05:47
PROVIDERS: ATTEND Family Medicine
DX: Z51.81 Encounter for therapeutic drug level monitoring (principal); Z79.01 Long term (current) use of anticoagulants
CPT/HCPCS: 36415; 85610

== ENCOUNTER → 2018-07-29 | Outpatient (CLI) | payer MEDICARE, MEDICAID ==
[2018-03-11 10:23] VITALS: BMI 21.7
[~2018-07-29] MED LIST changes: +HYDR28.425 TOP; +[UNRECOGNIZED DRUG - CODE] TOP
[2018-07-29 08:23] LABS: INR 2.56
== END ==
LOC: ZZSPRING 02:00
PROVIDERS: ATTEND Family Medicine
DX: I48.2 Chronic atrial fibrillation (principal); E03.9 Hypothyroidism, unspecified
CPT/HCPCS: 36415; 84443; 85610

== ENCOUNTER → 2018-08-26 | Outpatient (CLI) | payer MEDICARE, MEDICAID ==
[2018-03-11 10:23] VITALS: BMI 21.7
[2018-08-26 08:30] LABS: INR 2.17
== END ==
LOC: ZZSPRING 01:16
PROVIDERS: ATTEND Family Medicine
DX: I48.2 Chronic atrial fibrillation (principal)
CPT/HCPCS: 36415; 85610

== ENCOUNTER → 2018-09-16 | Outpatient (CLI) | payer MEDICARE, MEDICAID ==
[2018-03-11 10:23] VITALS: BMI 21.7
[~2018-09-16] MED LIST changes: +POLY17PO11 PO; -POLY17PO21 PO
== END ==
LOC: ZZSPRING 01:37
PROVIDERS: ATTEND Family Medicine
DX: E03.9 Hypothyroidism, unspecified (principal); I48.91 Unspecified atrial fibrillation
CPT/HCPCS: 36415; 82040; 82247; 82310; 82374; 82435; 82565; 82947; 84075; 84132; 84155; 84295; 84443; 84450; 84460; 84520; 85027

== ENCOUNTER → 2018-09-23 | Outpatient (CLI) | payer MEDICARE, MEDICAID ==
[2018-03-11 10:23] VITALS: BMI 21.7
[2018-09-23 08:23] LABS: INR 2.55
== END ==
LOC: ZZSPRING 01:39
PROVIDERS: ATTEND Family Medicine
DX: I48.2 Chronic atrial fibrillation (principal)
CPT/HCPCS: 36415; 85610

== ENCOUNTER → 2018-11-18 | Outpatient (CLI) | payer MEDICARE, MEDICAID ==
[2018-03-11 10:23] VITALS: BMI 21.7
[~2018-11-18] MED LIST changes: +DILT120C12 PO; -DILT120C18 PO; -OXYM-15 ENA; +OXYM30SP22 ENA
[2018-11-18 08:46] LABS: INR 2.68
== END ==
LOC: ZZSPRING 00:39
PROVIDERS: ATTEND Family Medicine
DX: Z51.81 Encounter for therapeutic drug level monitoring (principal); Z79.01 Long term (current) use of anticoagulants
CPT/HCPCS: 36415; 85610

== ENCOUNTER 2018-12-01 12:27 | Inpatient (IN) | payer MEDICARE, MEDICAID ==
[~2018-12-01] VITALS: Ht 172.7 cm; Wt 63.8 kg
--- NOTE | 2018-12-01 12:28 | ER Report ---
History and Physical Time Seen By MD: 12:28 HPI/ROS 88-year-old female on chronic anticoagulation secondary to atrial fibrillation is BIBA to the emergency department after a fall in her bathroom at the assisted living facility. She denies syncope. She takes warfarin daily. She is complaining of a headache and pain in her right hip. She denies pain in her neck, and self DC'd her c-collar. She is awake and alert. She denies chest pain or abdominal pain. No neuro deficits. Remainder of the 14 system rev: Yes Allergies: Coded Allergies: codeine (Unverified Allergy, Severe, ANAPHYLAXIS, 12/01/18) morphine (Verified Allergy, Severe, ANAPHYLAXIS, 12/01/18) Home Meds Active Scripts Oxycodone Hcl (OXYCONTIN) 10 Mg Tab.er.12h, 10 MG PO Q12H for 30 Days, #60 TAB Prov:NADJA SAMSON MD 11/12/18 Oxycodone Hcl (OXYCODONE HCL) 5 Mg Tablet, 5 MG PO QHS PRN for pain, #30 TAB Prov:NADJA SAMSON MD 11/12/18 Warfarin Sodium (WARFARIN SODIUM) 3 Mg Tablet, 1 TAB PO QHS for 90 Days, #90 TAB 4 Refills Prov:NADJA SAMSON MD 10/29/18 Levothyroxine Sodium (LEVOTHYROXINE SODIUM) 150 Mcg Tablet, 1 TAB PO QDAY for 90 Days, #90 TAB 4 Refills Prov:NADJA SAMSON MD 08/05/18 Furosemide (FUROSEMIDE) 20 Mg Tablet, 1 TAB PO 4XW for 90 Days, #48 TAB 4 Refills Lasix 20mg po on Saturday, Saturday, and Saturday Prov:NADJA SAMSON MD 06/05/18 Furosemide (FUROSEMIDE) 40 Mg Tablet, 1 TAB PO 3XW for 90 Days, #36 TAB 4 Refills take on Saturday, Saturday and Saturday Prov:NADJA SAMSON MD 06/05/18 Potassium Chloride (Potassium Chloride) 20 Meq Tablet.er, 1 TAB PO DAILY for 90 Days, #90 TAB 4 Refills Prov:NADJA SAMSON MD 06/05/18 Diltiazem Hcl (DILTIAZEM 24HR ER) 240 Mg Cap.er.24h, 1 CAP PO QDAY, #90 TAB 4 Refills Prov:NADJA SAMSON MD 06/05/18 Estradiol (ESTRACE) 42.5 Gm Cream.appl, 1 GM VG twice weekly for 90 Days, #90 JOSEF 4 Refills Prov:NADJA SAMSON MD 04/10/18 Gabapentin (GABAPENTIN) 100 Mg Capsule, 1-2 CAP PO BID, #4 CAPSULE 11 Refills take one cap in the am and two cap in the pm Prov:NADJA SAMSON MD 04/07/18 Ranitidine Hcl (ZANTAC 75) 75 Mg Tablet, 1 TAB PO DAILY, #90 TAB 4 Refills Prov:NADJA SAMSON MD 12/03/17 Polyethylene Glycol 3350 (POLYETHYLENE GLYCOL 3350) 17 Gm Powd.pack, 17 GM PO QDAY, #30 PACKET Prov:DAVID MERCADO MD 09/05/17 Docusate Sodium (COLACE) 100 Mg Capsule, 1 CAP PO BID, #180 CAPSULE 3 Refills Prov:JENNIFER MILLS APRN CABLE INSPECTOR-C 03/11/17 Bisacodyl (DULCOLAX) 10 Mg Supp.rect, 1 SUPP.RECT RC DAILY PRN for CONSTIPATION, #15 SUPP.RECT 11 Refills Prov:MURTAZA CANTU MD 02/13/17 Reported Medications Vit A,C & E/Lutein/Minerals (OCUVITE TABLET) 1 Each Tablet, 1 EACH PO DAILY 04/29/18 Acetaminophen (TYLENOL EXTRA STRENGTH) 500 Mg Tablet, 2 TAB PO TID, CAP 04/29/18 Magnesium Hydroxide (MILK OF MAGNESIA) 400 Mg/5 Ml Oral.susp, 30 ML PO DAILY PRN for CONSTIPATION, BOTTLE 03/12/18 Dextran 70/Hypromellose (ARTIFICIAL TEARS EYE DROPS) 15 Ml Drops, 1 DROP OP TID for Dry Eyes Apply 1 drop to each eye three times daily. 03/12/18 Prednisolone Sod Phos 15 Mg/5 Ml (PREDNISOLONE SOD PHOS 15 MG/5 ML) 15 Mg/5 Ml Solution, 1 DROP OP BID for Glaucoma, BOT Apply 1 drop to left eye BID. 03/12/18 Calcium Carbonate/Vitamin D3 (CALCIUM 500 + D TABLET) 1 Each Tablet, 1 TAB PO BID 10/30/17 Oxygen (OXYGEN) Inha, 1 L INH, L 11/23/16 Reviewed Nurses Notes: Yes Old Medical Records Reviewed: Yes Hx Smoking: No Smoking Status: Former Smoker Exposure to Second Hand Smoke?: Yes Hx Substance Use Disorder: No Hx Alcohol Use: No Constitutional Vital Sign - Last 24 Hours 12/01/18 12/01/18 12/01/18 12/01/18 12:27 12:34 12:37 12:57 Temp 97.2 Pulse 78 83 76 Resp 14 B/P (MAP) 100/71 (81) 108/71 Pulse Ox 98 90 98 O2 Delivery Nasal Cannula Nasal Cannula Nasal Cannula O2 Flow Rate 2 2 12/01/18 12/01/18 12/01/18 12/01/18 13:00 13:27 13:30 13:57 Pulse 85 78 B/P (MAP) 137/116 (123) 127/65 (85) Pulse Ox 95 97 O2 Delivery Nasal Cannula Nasal Cannula O2 Flow Rate 2 2 12/01/18 12/01/18 12/01/18 12/01/18 14:00 14:05 14:30 14:35 Pulse 76 78 B/P (MAP) 112/65 (81) 119/94 (102) Pulse Ox 99 99 O2 Delivery Nasal Cannula Nasal Cannula O2 Flow Rate 2 2 12/01/18 12/01/18 12/01/18 12/01/18 15:00 15:05 15:30 15:35 Pulse 77 93 B/P (MAP) 109/68 (82) 97/53 (68) Pulse Ox 99 98 O2 Delivery Nasal Cannula Nasal Cannula O2 Flow Rate 2 2 12/01/18 12/01/18 12/01/18 12/01/18 15:50 15:55 16:00 16:22 Pulse 98 B/P (MAP) 120/74 (89) 122/71 (88) 134/104 (114) Pulse Ox 98 O2 Delivery Nasal Cannula O2 Flow Rate 2 12/01/18 12/01/18 12/01/18 12/01/18 16:25 16:30 16:48 16:55 Pulse 95 104 B/P (MAP) 119/73 (88) 101/80 (87) Pulse Ox 99 99 O2 Delivery Nasal Cannula Nasal Cannula O2 Flow Rate 2 2 12/01/18 12/01/18 12/01/18 12/01/18 17:00 17:13 17:25 17:27 Pulse 107 B/P (MAP) 118/84 (95) 114/75 (88) 134/79 (97) Pulse Ox 100 O2 Delivery Nasal Cannula O2 Flow Rate 2 12/01/18 12/01/18 12/01/18 12/01/18 17:30 17:56 18:00 18:05 Pulse 108 B/P (MAP) 142/71 (94) 117/71 (86) 115/103 (107) Pulse Ox 92 O2 Delivery Nasal Cannula O2 Flow Rate 2 12/01/18 12/01/18 12/01/18 12/01/18 18:19 18:24 18:30 18:54 Pulse 108 124 B/P (MAP) 87/72 (77) 112/76 (88) Pulse Ox 98 95 O2 Delivery Nasal Cannula Nasal Cannula O2 Flow Rate 2 2 Physical Exam General Appearance: The patient is alert, has no immediate need for airway protection and no current signs of toxicity. Head: Large hematoma to the right forehead Eyes: Pupils equal and round no injection. Respiratory: Chest is non tender, lungs are clear to auscultation. Cardiac: irregular rate and rhythm Gastrointestinal: Abdomen is soft and non tender, no masses, bowel sounds normal. Musculoskeletal: TTP a the right inguinal area and right hip. Limited ROM due to pain Neck: Neck is supple and non tender. Skin: No rashes or lesions. Medical Decision Making Data Points Result Diagram: 12/01/18 1414 12/01/18 1414 Laboratory Hematology Test 12/01/18 14:14 Red Blood Count 4.11 M/uL (4.17-5.56) Mean Corpuscular Volume 96.1 fL (80.0-96.0) Mean Corpuscular Hemoglobin 32.2 pg (26.0-33.0) Mean Corpuscular Hemoglobin Concent 33.5 g/dL (32.0-36.0) Red Cell Distribution Width 12.7 % (11.5-14.5) Mean Platelet Volume 8.6 fL (7.2-11.1) Neutrophils (%) (Auto) 80.6 % (39.4-72.5) Lymphocytes (%) (Auto) 7.9 % (17.6-49.6) Monocytes (%) (Auto) 9.9 % (4.1-12.4) Eosinophils (%) (Auto) 1.3 % (0.4-6.7) Basophils (%) (Auto) 0.3 % (0.3-1.4) Nucleated RBC Relative Count (auto) 0.0 /100WBC Neutrophils # (Auto) 5.0 K/uL (2.0-7.4) Lymphocytes # (Auto) 0.5 K/uL (1.3-3.6) Monocytes # (Auto) 0.6 K/uL (0.3-1.0) Eosinophils # (Auto) 0.1 K/uL (0.0-0.5) Basophils # (Auto) 0.0 K/uL (0.0-0.1) Nucleated RBC Absolute Count (auto) 0.00 K/uL Prothrombin Time 28.8 seconds (12.0-14.4) Prothromb Time International Ratio 2.66 Activated Partial Thromboplast Time 46 seconds (23-35) Sodium Level 136 mmol/L (137-145) Potassium Level 4.3 mmol/L (3.5-5.0) Chloride Level 101 mmol/L (98-107) Carbon Dioxide Level 34 mmol/L (22-31) Blood Urea Nitrogen 28 mg/dl (7-18) Creatinine 1.00 mg/dl (0.52-1.04) Glomerular Filtration Rate Calc 52.6 Random Glucose 123 mg/dl (75-110) Calcium Level 9.6 mg/dl (8.4-10.2) Total Bilirubin 0.7 mg/dl (0.2-1.3) Aspartate Amino Transf (AST/SGOT) 20 U/L (0-35) Alanine Aminotransferase (ALT/SGPT) 25 U/L (0-56) Alkaline Phosphatase 73 U/L (0-126) Total Protein 7.4 g/dl (6.3-8.2) Albumin 3.9 g/dl (3.5-5.0) Chemistry Test 12/01/18 14:14 White Blood Count 6.2 k/uL (4.5-11.0) Red Blood Count 4.11 M/uL (4.17-5.56) Hemoglobin 13.2 g/dL (12.0-16.0) Hematocrit 39.5 % (34.0-47.0) Mean Corpuscular Volume 96.1 fL (80.0-96.0) Mean Corpuscular Hemoglobin 32.2 pg (26.0-33.0) Mean Corpuscular Hemoglobin Concent 33.5 g/dL (32.0-36.0) Red Cell Distribution Width 12.7 % (11.5-14.5) Platelet Count 175 K/uL (150-450) Mean Platelet Volume 8.6 fL (7.2-11.1) Neutrophils (%) (Auto) 80.6 % (39.4-72.5) Lymphocytes (%) (Auto) 7.9 % (17.6-49.6) Monocytes (%) (Auto) 9.9 % (4.1-12.4) Eosinophils (%) (Auto) 1.3 % (0.4-6.7) Basophils (%) (Auto) 0.3 % (0.3-1.4) Nucleated RBC Relative Count (auto) 0.0 /100WBC Neutrophils # (Auto) 5.0 K/uL (2.0-7.4) Lymphocytes # (Auto) 0.5 K/uL (1.3-3.6) Monocytes # (Auto) 0.6 K/uL (0.3-1.0) Eosinophils # (Auto) 0.1 K/uL (0.0-0.5) Basophils # (Auto) 0.0 K/uL (0.0-0.1) Nucleated RBC Absolute Count (auto) 0.00 K/uL Prothrombin Time 28.8 seconds (12.0-14.4) Prothromb Time International Ratio 2.66 Activated Partial Thromboplast Time 46 seconds (23-35) Glomerular Filtration Rate Calc 52.6 Calcium Level 9.6 mg/dl (8.4-10.2) Total Bilirubin 0.7 mg/dl (0.2-1.3) Aspartate Amino Transf (AST/SGOT) 20 U/L (0-35) Alanine Aminotransferase (ALT/SGPT) 25 U/L (0-56) Alkaline Phosphatase 73 U/L (0-126) Total Protein 7.4 g/dl (6.3-8.2) Albumin 3.9 g/dl (3.5-5.0) Coagulation Test 12/01/18 14:14 Prothrombin Time 28.8 seconds Prothromb Time International Ratio 2.66 Activated Partial Thromboplast Time 46 seconds ED Course/Re-evaluation ED Course Multiple stable pelvic fractures as well as a small subarachnoid hemorrhage adjacent to the scalp hematoma. Given FFP for reversal of warfarin. Patient is alert and oriented with a GCS of 15. She complains of a headache and pain in her right hip. Pain is controlled with Tylenol and fentanyl. She is able to take by mouth. She has been observed in the emergency Department for hours without mental status changes. I spoke with her at length about her DO NOT RESUSCITATE status and whether or not she would want surgery if the bleed in her head were to worsen. She does not want to be transferred which is reasonable. She will be admitted to the hospital for observation and pain control for her pelvic fractures. Decision to Disposition Date: Dec 01, 2018 Decision to Disposition Time: 19:10 Depart Departure Latest Vital Signs Vital Signs Date Time Temp Pulse Resp B/P (MAP) Pulse Ox O2 Delivery O2 Flow Rate FiO2 12/01/18 18:54 124 95 Nasal Cannula 2 12/01/18 18:30 112/76 (88) 12/01/18 12:37 97.2 14 Impression: Primary Impression: SAH (subarachnoid hemorrhage) Additional Impression: Pelvic fracture Condition: Improved Disposition: Admitted from ER Referrals: NADJA SAMSON MD (PCP) Problem Qualifiers Additional Impression: Pelvic fracture Encounter type: initial encounter Pelvic bone location: multiple parts Fracture type: closed Fracture alignment: without disruption of pelvic ring Qualified Codes: S32.82XA - Multiple fractures of pelvis without disruption of pelvic ring, initial encounter for closed fracture EASTON CROFT MD Dec 01, 2018 12:28
--- NOTE | 2018-12-01 14:23 | RADIOLOGY IMAGING REPORT ---
FACILITY: [facility] [place] PATIENT NAME: Effie Ordonez : 1930 MR: [id number] V: [id number] EXAM DATE: ORDERING PHYSICIAN: EASTON CROFT TECHNOLOGIST: Location: [facility] Patient: Effie Ordonez : 1930 Visit/Account:[id number] Date of Sevice: 12/01/2018 HIP RIGHT HISTORY: fall Pelvis and right hip films. FINDINGS: Patient is status post right hip nail pinning with well maintained femoral shaft and femoral neck com ponents. No obvious fracture or loosening of the right hip orthopedic hardware or adjacent bony stru ctures. There or fractures of the superior pubic rami bilaterally as well as what appears to be an o ld healed fracture of the right inferior pubic ramus fracture which was previously seen on a CT scan from 09/01/2017. In retrospect there was a subtle nondisplaced fracture of the right superior pubic ramus laterally on that CT scan which is not correlated with the appearance/position of the present a pparent fracture. Also there was no obvious fracture of the left suprapubic ramus on that study. St udy today demonstrates an angulated contour to the left superior pubic ramus. Pelvis is intact. SI joints are unremarkable. DJD changes in the lower lumbar spine. IMPRESSION: 1. No obvious acute hip fracture. Well-maintained right orthopedic hardware. 2. The patient had a previously recognized right inferior pubic ramus fracture on a CT scan from . There are, however, bilateral superior pubic rami fractures which are new when compared to the previous CT scan. Recommend CT scan of the pelvis for further evaluation. Results were discussed with EASTON CROFT at 12/01/2018 2:13 PM. Report Dictated By: Vu Nova MD at 12/01/2018 1:58 PM Report E-Signed By: Vu Nova MD at 12/01/2018 2:17 PM WSN:[email or web address]
--- NOTE | 2018-12-01 14:24 | RADIOLOGY IMAGING REPORT ---
FACILITY: [facility] - [place] PATIENT NAME: Effie Ordonez : 1930 MR: [id number] V: [id number] EXAM DATE: ORDERING PHYSICIAN: EASTON CROFT TECHNOLOGIST: Location: [facility] - [place] Patient: Effie Ordonez : 1930 Visit/Account:[id number] Date of Sevice: 12/01/2018 CT BRAIN NO CONTRAST EXAMINATION: CT head/brain without contrast HISTORY: Fall. Patient on warfarin TECHNIQUE: Contiguous axial images were obtained from the skull base to the vertex without intravenou s contrast. One of the following dose optimization techniques was utilized in the performance of this exam: Autom ated exposure control; adjustment of the mA and/or kV according to the patient's size; or use of an i terative reconstruction technique. Specific details can be referenced in the facility's radiology C T exam operational policy. COMPARISON STUDIES: 23/11/2016 FINDINGS: Ventricles/sulci/fissures: Midline in position and normal in configuration. Masses/hemorrhage/midline shift: Increased linear attenuation in the right frontal lobe at the level of the right frontal cephalhematoma. This is consistent with minimal subarachnoid blood/cortical con tusion change (images 44 through 47 series 2) White matter: No white matter edema or contusion. Lacunar infarct versus prominent perivascular spac e in the left basal ganglia Kelly-white differentiation: Small focus of right frontal cortical contusion/hemorrhage Extra-axial spaces: Small right frontal subarachnoid hemorrhage. No subdural or epidural fluid colle ctions noted. Dural venous sinuses/arterial structures: Negative Skull base/calvarium: No calvarial or skull base abnormality. Prominent right frontal cephalohematom a with no underlying fracture. Visualized mastoid air cells/paranasal sinuses: Negative IMPRESSION: 1. Small focus of right frontal subarachnoid hemorrhage/cortical contusion. 2. Large right cephalohematoma. Results were discussed with EASTON CROFT at 12/01/2018 1:56 PM. Report Dictated By: Vu Nova MD at 12/01/2018 1:45 PM Report E-Signed By: Vu Nova MD at 12/01/2018 2:20 PM WSN:[email or web address]
--- NOTE | 2018-12-01 14:24 | RADIOLOGY IMAGING REPORT ---
FACILITY: [facility] PATIENT NAME: Effie Ordonez : 1930 MR: [id number] V: [id number] EXAM DATE: ORDERING PHYSICIAN: EASTON CROFT TECHNOLOGIST: Location: [facility] Patient: Effie Ordonez : 1930 Visit/Account:[id number] Date of Sevice: 12/01/2018 CHEST SINGLE AP Additional pertinent History: Fall COMPARISON STUDIES: 03/10/2018 FINDINGS: Support lines and catheters: Oxygen tubing Lungs and Pleura: Atelectasis at the right base. No effusions. No pneumothorax. Heart and vasculature: Increased retrocardiac opacity compatible with a hiatal hernia. Anat and Mediastinum: Negative. Bones and Chest wall: Bilateral shoulder DJD changes right greater than left. Upper Abdomen: Negative. IMPRESSION: 1. Right basilar scarring/atelectasis. 2. Hiatal hernia. Report Dictated By: Vu Nova MD at 12/01/2018 1:56 PM Report E-Signed By: Vu Nova MD at 12/01/2018 2:20 PM WSN:[email or web address]
[2018-12-01 14:25] LABS: PLATELET COUNT, AUTOMATED 175 K/uL (150-450)
[2018-12-01 14:36] LABS: INR 2.66
--- NOTE | 2018-12-01 14:36 | RADIOLOGY IMAGING REPORT ---
FACILITY: PATIENT NAME: Effie Ordonez : 1930 MR: [id number] V: [id number] EXAM DATE: ORDERING PHYSICIAN: EASTON CROFT TECHNOLOGIST: Location: [facility] Patient: Effie Ordonez : 1930 Visit/Account:[id number] Date of Sevice: 12/01/2018 CT VERTEBRA CERVICAL (NON CON) EXAMINATION: CT cervical spine without contrast from the skull base through the thoracic inlet Trauma One of the following dose optimization techniques was utilized in the performance of this exam: Autom ated exposure control; adjustment of the mA and/or kV according to the patient's size; or use of an i terative reconstruction technique. Specific details can be referenced in the facility's radiology C T exam operational policy. COMPARISON STUDIES: None TECHNIQUE: Axial images were obtained from the skull base through the upper thoracic spine without co ntrast administration. Coronal and sagittal reformatted images were obtained from the axial source da ta. FINDINGS: Prevertebral soft tissues: Negative Alignment: Vertebral body alignments relatively well-maintained with no obvious vertebral body offset of any significance. Coronal reconstructed image demonstrates a cervical torticollis maximally conv ex to the left at the C4-5 interspace that is likely positionally related. Vertebral bodies: No obvious compression deformities or fractures. Slight cortical irregularity of t he C5 vertebral body in its anterior aspect just subjacent to a spurring change felt to be DJD. No d isruption of the posterior cortex. Posterior elements: Post on is well-maintained with no facet fracture or disruption Disc spaces: Disc space narrowing changes of a moderate degree at the C5-6 level. Visualized soft tissues anterior neck: Negative Visualized lung/mediastinum: Negative IMPRESSION: 1. Negative CT scan of the cervical spine for acute pathology. DJD changes. 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 Report Dictated By: Vu Nova MD at 12/01/2018 2:20 PM Report E-Signed By: Vu Nova MD at 12/01/2018 2:31 PM WSN:[email or web address]
[2018-12-01] MEDS ORDERED: ACETAMINOPHEN 500 MG TAB PO ONE (14:50)
[2018-12-01] MEDS ORDERED: NS(*) 0.9% 500 ML BAG 500 ML ONE (15:50)
[2018-12-01] MEDS ORDERED: fentaNYL CITR 100 MCG/2 ML AMP IVP ONE (16:50)
--- NOTE | 2018-12-01 18:34 | RADIOLOGY IMAGING REPORT ---
FACILITY: [facility] PATIENT NAME: Effie Ordonez : 1930 MR: [id number] V: [id number] EXAM DATE: ORDERING PHYSICIAN: EASTON CROFT TECHNOLOGIST: Location: [facility] [place] Patient: Effie Ordonez : 1930 Visit/Account:[id number] Date of Sevice: 12/01/2018 EXAMINATION: CT pelvis without IV contrast HISTORY: Fall. Right hip pain. TECHNIQUE: Thin axial CT images of the bony pelvis were obtained without IV contrast, with coronal an d sagittal 2D reconstructed images. One of the following dose optimization techniques was utilized in the performance of this exam: Autom ated exposure control; adjustment of the mA and/or kV according to the patient's size; or use of an i terative reconstruction technique. Specific details can be referenced in the facility's radiology C T exam operational policy. COMPARISON: Right hip radiographs 12/01/2018. CT abdomen/pelvis 09/01/2017 Findings: There is a mildly comminuted and displaced acute fracture of the right superior pubic rashid s, and a nondisplaced acute fracture of the right inferior pubic ramus adjacent to the pubic body. Sm all amount of adjacent soft tissue hemorrhage surrounding the pubic rami fractures. There is an acute nondisplaced fracture of the right iliac wing. Fracture begins along the superior a spect of the iliac crest and extends inferiorly and posteriorly, in close proximity to the right sacr oiliac joint but without evidence of intra-articular extension. Normal alignment at the sacroiliac mary int without widening. Additional small amount of soft tissue hemorrhage adjacent to the right iliac f racture with a component of intramuscular hematoma along the adjacent iliacus muscle and overlying gl uteal musculature. There is some poorly defined hemorrhage tracking along the subcutaneous soft tissu es of the lateral right upper thigh, without a discrete well-defined hematoma. No other acute osseous findings. There are old healed fractures of the bilateral superior and inferio r pubic rami. There are chronic appearing bilateral sacral insufficiency fractures which are new since the prior CT , with linear sclerosis and lucency extending vertically along both sacral ala, and a transverse comp onent at the S2-S3 level with mild buckling and angulation. Gamma nail fixation across an old intertrochanteric fracture of the proximal right femur, with a stab le CT appearance. No acute fracture along either proximal femur. Normal alignment at both hips. Alayna l and symmetric alignment along the sacroiliac joints. Multilevel degenerative changes along the visualized lower lumbar spine. Stable chronic L4 compressio n fracture with 70% loss of height. Generalized osteopenia. Visualized portions of the small bowel and colon are normal in caliber. Colonic diverticulosis. No fr ee fluid in the pelvis. Bladder diverticulum along the posterior left bladder wall. IMPRESSION: 1. Acute fractures of the right superior and inferior pubic rami, with mild comminution and displacem ent of the superior ramus fracture. 2. Acute fracture of the right iliac wing with fracture line beginning along the superior crest and c ontinuing posterior and inferior along the iliac bone, within close proximity to the sacroiliac joint but without evidence of intra-articular extension. 3. No other acute osseous findings. 4. Soft tissue hemorrhage adjacent to the pubic rami fractures and iliac bone fracture. There is zeyad e additional soft tissue hemorrhage and contusion extending along the superficial soft tissues of the lateral right buttock and upper thigh. 5. Multiple old pelvic fractures, including chronic bilateral superior and inferior pubic rami fractu res, nonacute bilateral sacral insufficiency fractures with a transverse component at S2-S3, as well as an old proximal right femur fracture with hardware fixation. Findings were discussed with EASTON CROFT at 12/01/2018 6:28 PM. Report Dictated By: Greg Concepcion MD at 12/01/2018 6:10 PM Report E-Signed By: Greg Concepcion MD at 12/01/2018 6:30 PM WSN:[id number]
[2018-12-01 19:41] VITALS: BP 132/79
[2018-12-01] MEDS ORDERED: BISACODYL 10 MG SUPP PR PRN (20:10)
[2018-12-01] MEDS ORDERED: MAGNESIUM HYDROXIDE* 30ML UDCP PO PRN (20:10)
--- NOTE | 2018-12-01 20:26 | History & Physical ---
History of Present Illness Chief Complaint Headache and right hip pain History of Present Illness This patient presented to the emergency room after a fall at assisted living. She complained of a headache and pain in her right hip. She denies any loss of consciousness. History Problems: (1) Hip fracture requiring operative repair Status: Resolved (2) CHRONIC ATRIAL FIBRILLATION Status: Chronic (3) Rheumatoid arthritis Status: Chronic (4) HYPOTHYROIDISM, UNSPECIFIED Status: Chronic (5) S/P cholecystectomy Status: Resolved Home Meds Active Scripts Oxycodone Hcl (OXYCONTIN) 10 Mg Tab.er.12h, 10 MG PO Q12H for 30 Days, #60 TAB Prov:NADJA SAMSON MD 11/12/18 Oxycodone Hcl (OXYCODONE HCL) 5 Mg Tablet, 5 MG PO QHS PRN for pain, #30 TAB Prov:NADJA SAMSON MD 11/12/18 Warfarin Sodium (WARFARIN SODIUM) 3 Mg Tablet, 1 TAB PO QHS for 90 Days, #90 TAB 4 Refills Prov:NADJA SAMSON MD 10/29/18 Levothyroxine Sodium (LEVOTHYROXINE SODIUM) 150 Mcg Tablet, 1 TAB PO QDAY for 90 Days, #90 TAB 4 Refills Prov:NADJA SAMSON MD 08/05/18 Furosemide (FUROSEMIDE) 20 Mg Tablet, 1 TAB PO 4XW for 90 Days, #48 TAB 4 Refills Lasix 20mg po on Saturday, Saturday, and Saturday Prov:NADJA SAMSON MD 06/05/18 Furosemide (FUROSEMIDE) 40 Mg Tablet, 1 TAB PO 3XW for 90 Days, #36 TAB 4 Refills take on Saturday, Saturday and Saturday Prov:NADJA SAMSON MD 06/05/18 Potassium Chloride (Potassium Chloride) 20 Meq Tablet.er, 1 TAB PO DAILY for 90 Days, #90 TAB 4 Refills Prov:NADJA SAMSON MD 06/05/18 Diltiazem Hcl (DILTIAZEM 24HR ER) 240 Mg Cap.er.24h, 1 CAP PO QDAY, #90 TAB 4 Refills Prov:NADJA SAMSON MD 06/05/18 Estradiol (ESTRACE) 42.5 Gm Cream.appl, 1 GM VG twice weekly for 90 Days, #90 JOSEF 4 Refills Prov:NADJA SAMSON MD 04/10/18 Gabapentin (GABAPENTIN) 100 Mg Capsule, 1-2 CAP PO BID, #4 CAPSULE 11 Refills take one cap in the am and two cap in the pm Prov:NADJA SAMSON MD 04/07/18 Ranitidine Hcl (ZANTAC 75) 75 Mg Tablet, 1 TAB PO DAILY, #90 TAB 4 Refills Prov:NADJA SAMSON MD 12/03/17 Polyethylene Glycol 3350 (POLYETHYLENE GLYCOL 3350) 17 Gm Powd.pack, 17 GM PO QDAY, #30 PACKET Prov:DAVID MERCADO MD 09/05/17 Docusate Sodium (COLACE) 100 Mg Capsule, 1 CAP PO BID, #180 CAPSULE 3 Refills Prov:JENNIFER MILLS APRN [employer] 03/11/17 Bisacodyl (DULCOLAX) 10 Mg Supp.rect, 1 SUPP.RECT RC DAILY PRN for CONSTIPATION, #15 SUPP.RECT 11 Refills Prov:MURTAZA CANTU MD 02/13/17 Reported Medications Vit A,C & E/Lutein/Minerals (OCUVITE TABLET) 1 Each Tablet, 1 EACH PO DAILY 04/29/18 Acetaminophen (TYLENOL EXTRA STRENGTH) 500 Mg Tablet, 2 TAB PO TID, CAP 04/29/18 Magnesium Hydroxide (MILK OF MAGNESIA) 400 Mg/5 Ml Oral.susp, 30 ML PO DAILY PRN for CONSTIPATION, BOTTLE 03/12/18 Dextran 70/Hypromellose (ARTIFICIAL TEARS EYE DROPS) 15 Ml Drops, 1 DROP OP TID for Dry Eyes Apply 1 drop to each eye three times daily. 03/12/18 Prednisolone Sod Phos 15 Mg/5 Ml (PREDNISOLONE SOD PHOS 15 MG/5 ML) 15 Mg/5 Ml Solution, 1 DROP OP BID for Glaucoma, BOT Apply 1 drop to left eye BID. 03/12/18 Calcium Carbonate/Vitamin D3 (CALCIUM 500 + D TABLET) 1 Each Tablet, 1 TAB PO BID 10/30/17 Oxygen (OXYGEN) Inha, 1 L INH, L 11/23/16 Allergies: Coded Allergies: codeine (Unverified Allergy, Severe, ANAPHYLAXIS, 12/01/18) morphine (Verified Allergy, Severe, ANAPHYLAXIS, 12/01/18) Hx Smoking: No Smoking Status: Former Smoker Exposure to Second Hand Smoke?: No Caffeine Intake: Tea Caffeine/Cups Per Day: 1 cup, usually decaffeinated Hx Alcohol Use: No Hx Substance Use Disorder: No Review of Systems All Systems Reviewed/Normal: Yes Exam Vital Signs Vital Signs Date Time Temp Pulse Resp B/P (MAP) Pulse Ox O2 Delivery O2 Flow Rate FiO2 12/01/18 19:41 98.4 101 18 132/79 (96) 95 Nasal Cannula 3.0 Neuro: No Gross deficits Eyes: PERRLA Cardiovascular: Regular Rate and Rhythm Respiratory: Clear to Auscultation GI: Abd Soft and Non-Tender Extremities: No Edema Integumentary: Other (Echymosis right forehead.) Medical Decision Making Data Points Result Diagram: 12/01/18 1414 12/01/18 1414 Assessment and Plan Problems: (1) SAH (subarachnoid hemorrhage) Status: Acute Assessment & Plan: A CT scan of the head did show a small subarachnoid bleed in the right frontal lobe. The lesion is small and she would not want to pursue any aggressive intervention. Her anticoagulation was reversed with FFP. She is currently lucent with no neurologic sequela. (2) Pelvic fracture Status: Acute Assessment & Plan: She does have acute fractures of the right superior and inferior pubic rami. These are nonoperative injuries. She has been placed on oxycodone for pain. Physical and occupational therapy consults have been ordered. (3) CHRONIC ATRIAL FIBRILLATION Status: Chronic Assessment & Plan: She is on chronic treatment with warfarin, which has been discontinued. (4) HYPOTHYROIDISM, UNSPECIFIED Status: Chronic Assessment & Plan: She is on chronic treatment with Synthroid. Copies to: NADJA SAMSON MD ; Venous Thromboembolism Antithrombotics Is Pt On Any Antithrombotics?: Yes Exam Sepsis Risk: No Definite Risk Problem Qualifiers (1) Pelvic fracture: Encounter type: initial encounter Pelvic bone location: multiple parts Fracture type: closed Fracture alignment: without disruption of pelvic ring Qualified Codes: S32.82XA - Multiple fractures of pelvis without disruption of pelvic ring, initial encounter for closed fracture JOSH HOLDER DO Dec 01, 2018 20:26
[2018-12-01] MEDS: oxyCODONE HCL 5 MG CAP PO PRN (20:31)
[2018-12-01] MEDS: CALCIUM CARBONATE/VITAMIN D3 PO SCH (21:54)
[2018-12-01] MEDS: GABAPENTIN 100 MG CAP PO SCH (21:54)
[2018-12-01] MEDS: ACETAMINOPHEN 500 MG TAB PO PRN (21:54)
[2018-12-01] MEDS: DOCUSATE SODIUM 100 MG CAP PO SCH (21:54)
[2018-12-01] MEDS: prednisoLONE ACE 1% OP 5ML BTL OU SCH (21:55)
[2018-12-02 00:30] VITALS: BP 114/64
[2018-12-02] MEDS: oxyCODONE HCL 5 MG CAP PO PRN ×4 (00:31→19:58)
[2018-12-02 03:36] VITALS: BP 124/82
[2018-12-02] MEDS: ACETAMINOPHEN 500 MG TAB PO PRN ×4 (03:43→21:29)
[2018-12-02] MEDS: LEVOTHYROXINE SOD 0.150 MG TAB PO SCH (06:26)
[2018-12-02 06:38] LABS: INR 1.47
[2018-12-02 06:39] LABS: PLATELET COUNT, AUTOMATED 131 K/uL (150-450)
[2018-12-02 07:51] VITALS: BP 106/54
[2018-12-02] MEDS: POLYETHYLENE GLYCOL 17 GM PKT PO SCH (09:11)
[2018-12-02] MEDS: GABAPENTIN 100 MG CAP PO SCH ×2 (09:11→21:30)
[2018-12-02] MEDS: DOCUSATE SODIUM 100 MG CAP PO SCH ×2 (09:11→21:30)
[2018-12-02] MEDS: CALCIUM CARBONATE/VITAMIN D3 PO SCH ×2 (09:11→21:29)
[2018-12-02] MEDS: DILTIAZEM CD 120 MG CAPCR PO SCH (09:12)
[2018-12-02] MEDS: prednisoLONE ACE 1% OP 5ML BTL OU SCH ×2 (09:12→21:30)
--- NOTE | 2018-12-02 10:18 | Hospitalist Progress Note ---
Subjective Progress Notes Subjective She was admitted with subarachnoid bleed and pelvic fracture. She has no complaints this morning. She had no acute events overnight. Patient Complains of: Cardiovascular: No: Chest Pain Respiratory: No: Shortness of Breath Physical Exam Vital Signs Date Time Temp Pulse Resp B/P (MAP) Pulse Ox O2 Delivery O2 Flow Rate FiO2 12/02/18 07:51 98.5 85 20 106/54 (71) 97 Nasal Cannula 12/02/18 03:36 2.0 Intake and Output 12/02/18 06:59 Intake Total 1500 ml Output Total 225 ml Balance 1275 ml Intake Oral 1000 ml IV Total 500 ml Output Urine Total 225 ml # Voids 8 General Appearance: Alert, Awake, No Acute Distress, Afebrile Neuro: No Gross deficits Cardiovascular: Regular Rate and Rhythm Respiratory: No Respiratory Distress, Clear to Auscultation GI: Soft and Non-Tender Extremities: Warm, Perfused; No Edema Integumentary: Other (ecchymosis present to right eye orbit) Psych: Alert & Oriented X3, Appropriate Mood & Affect Result Diagram: 12/02/1854012/02/18540 Assessment and Plan Problems: (1) SAH (subarachnoid hemorrhage) Status: Acute Assessment & Plan: A CT scan of the head did show a small subarachnoid bleed in the right frontal lobe. The lesion is small and she would not want to pursue any aggressive intervention. Her anticoagulation was reversed with FFP. She is currently lucent with no neurologic sequela. (2) Pelvic fracture Status: Acute Assessment & Plan: She does have acute fractures of the right superior and inferior pubic rami. These are nonoperative injuries. She has been placed on oxycodone for pain. Physical and occupational therapy consults have been ordered. Dr. Wallace was consulted to evaluate weight bearing status for patient. He recommends patient be touch touch weight bearing to right lower extremity for 5-6 weeks. She will have Huynh placed at this time, as she is incontinent with the fracture. (3) CHRONIC ATRIAL FIBRILLATION Status: Chronic Assessment & Plan: She is on chronic treatment with warfarin, which has been discontinued. (4) HYPOTHYROIDISM, UNSPECIFIED Status: Chronic Assessment & Plan: She is on chronic treatment with Synthroid. Exam Sepsis Risk: No Definite Risk Problem Qualifiers (1) Pelvic fracture: Encounter type: initial encounter Pelvic bone location: multiple parts Fracture type: closed Fracture alignment: without disruption of pelvic ring Qualified Codes: S32.82XA - Multiple fractures of pelvis without disruption of pelvic ring, initial encounter for closed fracture SUSAN CLAY LOADING MACHINE ADJUSTER Dec 02, 2018 10:18
[2018-12-02 10:39] VITALS: Ht 172.7 cm; Wt 63.8 kg
--- NOTE | 2018-12-02 11:52 | NUR ---
Physical Therapy Impression Pt stood from commode using RW and CGA from PT and OT. Pt dependent for hygiene and clothing management. Commode removed and chair placed behind patient. Pt able to maintain TTWB through R LE during transfer and also while standing. Recommendations pending spring requirements for return to facility. Physical Therapy Goals 1. Pt to be Min/CGA for bed mob 2. Pt to be Min/CGA for transfers Patient's Goals
--- NOTE | 2018-12-02 12:44 | NUR ---
Occupational Therapy Impression OT evaluation completed with PT. Pt. would benefit from OT services 5x/week to increase independence in ADL's. OT d/c recommendations pending pt.'s progress with mobility. Pt. may need to d/c to short term subacute rehab. Occupational Therapy Goals 1. Pt. to perform toileting activities with CGA. 2. Pt. to perform showering activities with Min A. 3. Pt. to perform grooming activities with I. 4. Pt. to perform dressing activities with Min A. Patient's Goal
[2018-12-02 14:23] VITALS: BP 96/51
[2018-12-02 19:07] VITALS: BP 107/67
[2018-12-03 03:40] VITALS: BP 125/75
[2018-12-03] MEDS: oxyCODONE HCL 5 MG CAP PO PRN ×3 (03:40→18:01)
[2018-12-03 05:57] LABS: PLATELET COUNT, AUTOMATED 112 K/uL (150-450)
[2018-12-03] MEDS: LEVOTHYROXINE SOD 0.150 MG TAB PO SCH (06:01)
[2018-12-03 07:04] VITALS: BP 101/72
[2018-12-03] MEDS: ACETAMINOPHEN 500 MG TAB PO PRN ×3 (07:33→20:34)
[2018-12-03] MEDS: DOCUSATE SODIUM 100 MG CAP PO SCH ×2 (08:43→20:34)
[2018-12-03] MEDS: CALCIUM CARBONATE/VITAMIN D3 PO SCH ×2 (08:43→20:33)
[2018-12-03] MEDS: POLYETHYLENE GLYCOL 17 GM PKT PO SCH (08:43)
[2018-12-03] MEDS: DILTIAZEM CD 120 MG CAPCR PO SCH (08:43)
[2018-12-03] MEDS: GABAPENTIN 100 MG CAP PO SCH ×2 (08:44→20:33)
[2018-12-03] MEDS: prednisoLONE ACE 1% OP 5ML BTL OU SCH ×2 (08:44→20:35)
[2018-12-03] MEDS ORDERED: INFLUENZA VIRUS VAC 0.5ML SYR IM ONLY ONE (09:00)
--- NOTE | 2018-12-03 09:40 | Hospitalist Progress Note ---
Subjective Progress Notes Subjective She has increased swelling to right orbit, but denies any vision changes. She was noted to have urinary frequency yesterday and incontinence. A urinalysis was performed. Patient Complains of: Cardiovascular: No: Chest Pain Respiratory: No: Shortness of Breath Physical Exam Vital Signs Date Time Temp Pulse Resp B/P (MAP) Pulse Ox O2 Delivery O2 Flow Rate FiO2 12/03/18 07:04 99.2 95 20 101/72 (82) 95 Nasal Cannula 12/03/18 03:40 2.0 Intake and Output 12/03/18 07:00 Intake Total 840 ml Output Total 875 ml Balance -35 ml Intake Oral 840 ml Output Urine Total 875 ml # Voids 1 # Bowel Movements 1 General Appearance: Alert, Awake, No Acute Distress, Afebrile Neuro: No Gross deficits Eyes: Other (sclera wnl, increased swelling to orbit skin, ecchymosis present ) Cardiovascular: Regular Rate and Rhythm Respiratory: No Respiratory Distress, Clear to Auscultation Extremities: Warm, Perfused; No Edema Psych: Alert & Oriented X3, Appropriate Mood & Affect Result Diagram: 12/03/1830 12/03/18529 Assessment and Plan Problems: (1) SAH (subarachnoid hemorrhage) Status: Acute Assessment & Plan: A CT scan of the head did show a small subarachnoid bleed in the right frontal lobe. The lesion is small and she would not want to pursue any aggressive intervention. Her anticoagulation was reversed with FFP. She is currently lucent with no neurologic sequela. Her orbit has increased in swelling, but is soft upon palpation. She has no visual changes. We will continue to monitor. (2) Pelvic fracture Status: Acute Assessment & Plan: She does have acute fractures of the right superior and inferior pubic rami. These are nonoperative injuries. She has been placed on oxycodone for pain. Physical and occupational therapy consults have been ordered. Dr. Wallace was consulted to evaluate weight bearing status for patient. He recommends patient be touch touch weight bearing to right lower extremity for 5-6 weeks. She will have Huynh placed at this time, as she is incontinent with the fracture. (3) UTI (urinary tract infection) Status: Acute Assessment & Plan: She had frequency and urinary incontinence. Her urinalysis is consistent with UTI. Urine culture pending. She will be started on Ceftriaxone. (4) CHRONIC ATRIAL FIBRILLATION Status: Chronic Assessment & Plan: She is on chronic treatment with warfarin, which has been discontinued. (5) HYPOTHYROIDISM, UNSPECIFIED Status: Chronic Assessment & Plan: She is on chronic treatment with Synthroid. Exam Sepsis Risk: No Definite Risk Problem Qualifiers (1) Pelvic fracture: Encounter type: initial encounter Pelvic bone location: multiple parts Fracture type: closed Fracture alignment: without disruption of pelvic ring Qualified Codes: S32.82XA - Multiple fractures of pelvis without disruption of pelvic ring, initial encounter for closed fracture (2) UTI (urinary tract infection): Urinary tract infection type: acute cystitis Hematuria presence: without hematuria Qualified Codes: N30.00 - Acute cystitis without hematuria SUSAN CLAY Dec 03, 2018 09:40
[2018-12-03] MEDS ORDERED: cefTRIAXone 1 GM VIAL IVP SCH (10:00)
--- NOTE | 2018-12-03 11:04 | NUR ---
Occupational Therapy Impression Co-treat with PT. Pt. demonstrated ability to perform sit<> stand transfer with CGA with use of FWW. Pt. required Max A to perform toileting activities. Continue with POC. Occupational Therapy Goals 1. Pt. to perform toileting activities with CGA. 2. Pt. to perform showering activities with Min A. 3. Pt. to perform grooming activities with I. 4. Pt. to perform dressing activities with Min A. Patient's Goal
[2018-12-03 12:01] VITALS: BP 105/63
--- NOTE | 2018-12-03 12:48 | NUR ---
Physical Therapy Impression Pt stood from commode using RW and CGA from PT and OT. Pt dependent for hygiene and clothing management. Commode removed and chair placed behind patient. Pt able to maintain TTWB through R LE during transfer and also while standing. Recommendations pending spring requirements for return to facility. Physical Therapy Goals Patient's Goals
[2018-12-03 15:56] VITALS: BP 117/83
[2018-12-03 20:30] VITALS: BP 101/72
[2018-12-04] MEDS: oxyCODONE HCL 5 MG CAP PO PRN ×3 (00:01→13:20)
[2018-12-04 03:08] VITALS: BP 109/61
[2018-12-04] MEDS: ACETAMINOPHEN 500 MG TAB PO PRN ×2 (03:11→11:24)
[2018-12-04] MEDS: LEVOTHYROXINE SOD 0.150 MG TAB PO SCH (05:20)
[2018-12-04 07:44] VITALS: BP 106/56
[2018-12-04] MEDS: CALCIUM CARBONATE/VITAMIN D3 PO SCH (08:27)
[2018-12-04] MEDS: GABAPENTIN 100 MG CAP PO SCH (08:27)
[2018-12-04] MEDS: DILTIAZEM CD 120 MG CAPCR PO SCH (08:27)
[2018-12-04] MEDS: prednisoLONE ACE 1% OP 5ML BTL OU SCH (08:28)
--- NOTE | 2018-12-04 08:35 | CONSULTATION ---
EVENT DATE: December 04, 2018 CHIEF COMPLAINT Right pelvic fracture. HISTORY OF PRESENT ILLNESS This patient is an 88-year old female who was found after a fall and was brought into [facility] and found to have a right iliac wing fracture as well as inferior rami fractures. Orthopaedics was consulted for further evaluation of these fractures and she was admitted to the hospital and I saw within the hospital. She said that she does have some pain a little bit towards the groin area and a little bit towards the knee but no other major problems or pain at this point and she does complain more of facial and head injuries. PAST MEDICAL HISTORY Significant for hypertension as well as some neurological issues and prior right hip fracture, which was fixed many years ago here at [facility]. PAST SURGICAL HISTORY Please see the full chart for this. CURRENT MEDICATIONS Please see the hospital chart for all of the current medications. ALLERGIES None reported by the patient. SOCIAL HISTORY The patient lives in an assisted facility and does not drink or smoke and denies any major social issues. PHYSICAL EXAMINATION The patient is in a hospital bed in no acute distress, comfortable and cooperatives. Answers all questions appropriately. She is able to answer questions and respond verbally to commands. HEENT: Normocephalic and has bruising around the right eye. She has significant bruising and irritation associated with this and is unable to open the right eye today. She is able to mouth and verbalize commands. NECK: Supple. Trachea is midline. CHEST: Chest rise is full symmetrically. She has no labored breathing or audible wheezing. She is able to turn and sit without any major difficulty. Her arms are otherwise grossly and neurovascularly intact. She is able to move them in all directions and she has light touch sensation. As for her lower extremities, her right hip does have a little bit of pain with flexion and extension and internal and external rotation. Her knee has a little bit of pain with palpation over this area but she is able to flex and extend the knee without too much difficulty. Log roll of the leg does not give her any major pain in the hip and her foot. Otherwise, able to wiggle the toes and she has light touch sensation on the top of the foot. Her contralateral extremity is otherwise unremarkable. LABORATORY AND RADIOLOGY X-rays and CT as reviewed. It does show a right iliac wing fracture, which is nondisplaced right close to the SI joint as well as a rami fracture on this side, which are nondisplaced. ASSESSMENT AND PLAN This patient is an 88-year old female with a closed ring pelvic fracture. We will do closed treatment of a pelvic ring fracture as well as iliac crest fracture by making her touch-toe weightbearing on the right side. I do not think we need to do any surgical interventions at this time. She will need to remain touch-toe weightbearing for about six weeks and then we will see her back at that point with x-rays and if everything goes well we will start to progress her weightbearing. SHIREEN
[2018-12-04] MEDS: DOCUSATE SODIUM 100 MG CAP PO SCH (08:43)
[2018-12-04] MEDS: POLYETHYLENE GLYCOL 17 GM PKT PO SCH (09:00)
[2018-12-04] MEDS ORDERED: ESTRADIOL 0.01% VG SCH (09:00)
[2018-12-04] MEDS ORDERED: OXYC5TAB38 PO (11:00)
[2018-12-04] MEDS ORDERED: OXYC-823 PO (11:00)
--- NOTE | 2018-12-04 11:10 | Hospitalist Depart ---
Discharge Summary Reason for Hosp/Final Diag: (1) SAH (subarachnoid hemorrhage) Status: Acute Hospital Course & Plan: A CT scan of the head did show a small subarachnoid bleed in the right frontal lobe. The lesion is small and she would not want to pursue any aggressive intervention. Her anticoagulation was reversed with FFP. She is currently lucent with no neurologic sequela. Her orbit has decreased in swelling, is soft upon palpation. She has refused ice or heat applications upon admission. She has no visual changes. Hgb and Hct have been stable upon admission. She will be transferred to [facility] for rehab. (2) Pelvic fracture Status: Acute Hospital Course & Plan: She does have acute fractures of the right superior and inferior pubic rami. These are nonoperative injuries. She has been placed on oxycodone for pain. Physical and occupational therapy consults have been ordered during admission. Dr. Dixon was consulted to evaluate weight bearing status for patient. He recommends patient be touch touch weight bearing to right lower extremity for 6 weeks. She should have repeat x-rays in 6 weeks and follow up with Dr. Dixon at that time. (3) CHRONIC ATRIAL FIBRILLATION Status: Chronic Hospital Course & Plan: She is on chronic treatment with warfarin, which has been discontinued. (4) HYPOTHYROIDISM, UNSPECIFIED Status: Chronic Hospital Course & Plan: She is on chronic treatment with Synthroid. (5) Urinary incontinence Status: Chronic Hospital Course & Plan: She had urinary incontinence upon admission. Her urine culture pending shows a contaminated sample. She does not have any symptoms of UTI. She received one dose Ceftriaxone for probable UTI, but sample should be repeated if symptoms present. At this time, she has no fever, no elevated WBC count, or symptoms. Departure Latest Vital Signs Vital Signs 12/04/18 12/04/18 07:44 08:27 Temp 98.5 Pulse 84 Resp 16 B/P (MAP) 106/56 (73) Pulse Ox 94 O2 Delivery Nasal Cannula O2 Flow Rate 2.0 Weight (Pounds): 140 Weight (Ounces): 9.0 Result Diagram: 12/03/1852912/03/18529 Condition: Improved Discharge: Senior Living PT/OT Follow Up For: PT For Strengthening, PT Evaluation and Treat Discharge Code Status: DNR, DNI Discharge Instructions Home Meds Active Scripts Oxycodone Hcl (OXYCONTIN) 10 Mg Tab.er.12h, 10 MG PO Q12H for 30 Days, #60 TAB Prov:CLAY,SUSAN Toscano [facility] 12/04/18 Oxycodone Hcl (OXYCODONE HCL) 5 Mg Tablet, 5 MG PO Q6H PRN for pain, #42 TAB Prov:BERHANE CLAYDYANA Toscano [facility] 12/04/18 Levothyroxine Sodium (LEVOTHYROXINE SODIUM) 150 Mcg Tablet, 1 TAB PO QDAY for 90 Days, #90 TAB 4 Refills Prov:NADJA SAMSON MD 08/05/18 Furosemide (FUROSEMIDE) 20 Mg Tablet, 1 TAB PO 4XW for 90 Days, #48 TAB 4 Refills Lasix 20mg po on Saturday, Saturday, and Saturday Prov:NADJA SAMSON MD 06/05/18 Furosemide (FUROSEMIDE) 40 Mg Tablet, 1 TAB PO 3XW for 90 Days, #36 TAB 4 Refills take on Saturday, Saturday and Saturday Prov:NADJA SAMSON MD 06/05/18 Potassium Chloride (Potassium Chloride) 20 Meq Tablet.er, 1 TAB PO DAILY for 90 Days, #90 TAB 4 Refills Prov:NADJA SAMSON MD 06/05/18 Diltiazem Hcl (DILTIAZEM 24HR ER) 240 Mg Cap.er.24h, 1 CAP PO QDAY, #90 TAB 4 Refills Prov:NADJA SAMSON MD 06/05/18 Estradiol (ESTRACE) 42.5 Gm Cream.appl, 1 GM VG twice weekly for 90 Days, #90 JOSEF 4 Refills Prov:NADJA SAMSON MD 04/10/18 Gabapentin (GABAPENTIN) 100 Mg Capsule, 1-2 CAP PO BID, #4 CAPSULE 11 Refills take one cap in the am and two cap in the pm Prov:NADJA SAMSON MD 04/07/18 Ranitidine Hcl (ZANTAC 75) 75 Mg Tablet, 1 TAB PO DAILY, #90 TAB 4 Refills Prov:NADJA SAMSON MD 12/03/17 Polyethylene Glycol 3350 (POLYETHYLENE GLYCOL 3350) 17 Gm Powd.pack, 17 GM PO QDAY, #30 PACKET Prov:DAVID MERCADO MD 09/05/17 Docusate Sodium (COLACE) 100 Mg Capsule, 1 CAP PO BID, #180 CAPSULE 3 Refills Prov:CRJENNIFER CONTEH [employer] 03/11/17 Bisacodyl (DULCOLAX) 10 Mg Supp.rect, 1 SUPP.RECT RC DAILY PRN for CONSTIPATION, #15 SUPP.RECT 11 Refills Prov:MURTAZA CANTU MD 02/13/17 Reported Medications Vit A,C & E/Lutein/Minerals (OCUVITE TABLET) 1 Each Tablet, 1 EACH PO DAILY 04/29/18 Acetaminophen (TYLENOL EXTRA STRENGTH) 500 Mg Tablet, 2 TAB PO TID, CAP 04/29/18 Magnesium Hydroxide (MILK OF MAGNESIA) 400 Mg/5 Ml Oral.susp, 30 ML PO DAILY PRN for CONSTIPATION, BOTTLE 03/12/18 Dextran 70/Hypromellose (ARTIFICIAL TEARS EYE DROPS) 15 Ml Drops, 1 DROP OP TID for Dry Eyes Apply 1 drop to each eye three times daily. 03/12/18 Prednisolone Sod Phos 15 Mg/5 Ml (PREDNISOLONE SOD PHOS 15 MG/5 ML) 15 Mg/5 Ml Solution, 1 DROP OP BID for Glaucoma, BOT Apply 1 drop to left eye BID. 03/12/18 Calcium Carbonate/Vitamin D3 (CALCIUM 500 + D TABLET) 1 Each Tablet, 1 TAB PO BID 10/30/17 Oxygen (OXYGEN) Inha, 1 L INH, L 11/23/16 Discontinued Scripts Warfarin Sodium (WARFARIN SODIUM) 3 Mg Tablet, 1 TAB PO QHS for 90 Days, #90 TAB 4 Refills Prov:NADJA SAMSON MD 10/29/18 Diet: Regular Activity: With Walker Special Instructions: Touch touch weight bearing only to right lower extremity for 6 weeks. Follow up with Dr. Dixon in 6 weeks. Stop Warfarin. Copies to: NADJA SAMSON MD; AYANA DIXON MD ; Venous Thromboembolism Antithrombotics Is Pt On Any Antithrombotics?: Yes Problem Qualifiers (1) Pelvic fracture: Encounter type: initial encounter Pelvic bone location: multiple parts Fracture type: closed Fracture alignment: without disruption of pelvic ring Qualified Codes: S32.82XA - Multiple fractures of pelvis without disruption of pelvic ring, initial encounter for closed fracture SUSAN CLAY [employer] Dec 04, 2018 11:10
[2018-12-04 11:25] VITALS: BP 113/66
--- NOTE | 2018-12-04 12:18 | NUR ---
OCCUPATIONAL THERAPY Dressing Assistance: Dressing Aid Required: Bathing Assistance: Bathing Equipment: Home Assessment: Not Completed Feeding Assistance: Set- up Feeding Specialized Equipment: N/A Toilet Use: Maximum Assistance 1 person assist Verbalizes Needs: Yes Understands Precautions: Yes Cooperative: Yes Family Teaching: No Occupational Therapy Comment: Pt. will d/c to [facility] for continued rehab until weight bearing status is advanced by Dr. Wallace.
== END 2018-12-04 13:45 | disposition hospice, inpatient (51) | DRG 965 ==
LOC: ER 12:44 → MED 18:59
PROVIDERS: ADMIT Family Medicine; ATTEND Family Medicine
PROC: 30233K1 Transfusion of Nonautologous Frozen Plasma into Peripheral Vein, Percutaneous Approach (ICD-10-PCS; principal; 2018-12-02)
DX: S06.6X0A Traumatic subarachnoid hemorrhage without loss of consciousness, initial encounter (principal); S32.810A Multiple fractures of pelvis with stable disruption of pelvic ring, initial encounter for closed fracture; I10 Essential (primary) hypertension; I48.2 Chronic atrial fibrillation; Z79.01 Long term (current) use of anticoagulants; M06.9 Rheumatoid arthritis, unspecified; E03.9 Hypothyroidism, unspecified; R32 Unspecified urinary incontinence; W18.30XA Fall on same level, unspecified, initial encounter; Y92.091 Bathroom in other non-institutional residence as the place of occurrence of the external cause; Y99.8 Other external cause status; Z90.49 Acquired absence of other specified parts of digestive tract; Z88.5 Allergy status to narcotic agent; Z88.8 Allergy status to other drugs, medicaments and biological substances
CPT/HCPCS: 36415; 70450; 71045; 72125; 72192; 81001; 82040; 82247; 82310; 82374; 82435; 82565; 82947; 84075; 84132; 84155; 84295; 84450; 84460; 84520; 85025; 85610; 85730; 86850; 86900; 86901; 87077; 87088; 87186; 96374; 97161; 97165; 99285; J0696; J3010; J7040; P9059

== ENCOUNTER → 2018-12-01 | Outpatient (CLI) | payer MEDICARE, MEDICAID ==
[2018-12-02 10:39] VITALS: BMI 21.3
== END ==
LOC: AMB 12:03
PROVIDERS: ATTEND Nurse Practitioner
DX: M25.561 Pain in right knee (principal); S00.93XA Contusion of unspecified part of head, initial encounter; R51 Headache; W18.30XA Fall on same level, unspecified, initial encounter; R10.9 Unspecified abdominal pain
CPT/HCPCS: A0425; A0429

== ENCOUNTER → 2018-12-15 | Outpatient (CLI) | payer MEDICARE, MEDICAID ==
[2018-12-02 10:39] VITALS: BMI 21.3
[2018-12-15 10:54] LABS: PLATELET COUNT, AUTOMATED 332 K/uL (150-450)
== END ==
LOC: LAB 10:08
PROVIDERS: ATTEND Family Medicine
DX: E03.9 Hypothyroidism, unspecified (principal); I50.9 Heart failure, unspecified
CPT/HCPCS: 36415; 82306; 82310; 82374; 82435; 82565; 82947; 84132; 84295; 84520; 85025

== ENCOUNTER 2019-01-12 09:12 | Inpatient (IN) | payer MEDICARE, MEDICAID ==
[~2019-01-12] VITALS: Ht 172.7 cm; Wt 61.5 kg
[~2019-01-12 09:12] MED LIST changes: -LEVE500T73 PO; -PANT40TA65 PO
--- NOTE | 2019-01-12 09:15 | ER Report ---
History and Physical Time Seen By MD: 09:12 HPI/ROS CHIEF COMPLAINT: Possible stroke HISTORY OF PRESENT ILLNESS: Patient is an 88-year-old female with past medical history for recent sub-arachnoid hemorrhage on 11/23/2017 patient was on Coumadi n which is now stopped. She is currently residing at [facility] for rehabilitation including from a pelvic fracture from 2 months ago. A call from the custodial stated patient came to the desk at 8:40 stating I think I'm having a stroke. Nursing staff noted intermittent right sided facial weakness and right hybrid derivatives trader weakness to the right upper extremity. She does have a history of atrial fibrillation and is currently not receiving any anticoagulation. Hospital blood sugar was 120 mg/dL. patient states he currently feels well but does admit to some intermittent right sided weakness specifically to her right hand. Currently she states this feels normal. She denies any headache just feels not well. She denies chest pain or shortness of breath. She denies any abdominal pain. Daughter additionally provides history that patient does seem to have some mild slurred speech. REVIEW OF SYSTEMS: Constitutional: No fever, no chills. Generalized malaise and intermittent right hybrid derivatives trader strength weakness. Eyes: No discharge. ENT: No sore throat. Cardiovascular: No chest pain, no palpitations. Respiratory: No cough, no shortness of breath. Gastrointestinal: No abdominal pain, no vomiting. Genitourinary: No hematuria. Musculoskeletal: No back pain. Skin: No rashes. Neurological: No headache. Allergies: Coded Allergies: codeine (Unverified Allergy, Severe, ANAPHYLAXIS, 12/01/18) morphine (Verified Allergy, Severe, ANAPHYLAXIS, 12/01/18) Home Meds Active Scripts Oxycodone Hcl (OXYCODONE HCL) 5 Mg Tablet, 5 MG PO QDAY PRN for pain, #20 TAB Prov:ROMANA SAMSON MD 12/29/18 Oxycodone Hcl (OXYCONTIN) 10 Mg Tab.er.12h, 10 MG PO Q12H for 30 Days, #60 TAB Prov:ROMANA SAMSON MD 12/29/18 Furosemide (FUROSEMIDE) 20 Mg Tablet, 1 TAB PO DAILY for 90 Days, #90 TAB 4 Refills Prov:ROMANA SAMSON MD 12/15/18 Levothyroxine Sodium (LEVOTHYROXINE SODIUM) 150 Mcg Tablet, 1 TAB PO QDAY for 90 Days, #90 TAB 4 Refills Prov:ROMANA SAMSON MD 08/05/18 Potassium Chloride (Potassium Chloride) 20 Meq Tablet.er, 1 TAB PO DAILY for 90 Days, #90 TAB 4 Refills Prov:ROMANA SAMSON MD 06/05/18 Diltiazem Hcl (DILTIAZEM 24HR ER) 240 Mg Cap.er.24h, 1 CAP PO QDAY, #90 TAB 4 Refills Prov:ROMANA SAMSON MD 06/05/18 Estradiol (ESTRACE) 42.5 Gm Cream.appl, 1 GM VG twice weekly for 90 Days, #90 JOSEF 4 Refills Prov:ROMANA SAMSON MD 04/10/18 Gabapentin (GABAPENTIN) 100 Mg Capsule, 1-2 CAP PO BID, #4 CAPSULE 11 Refills take one cap in the am and two cap in the pm Prov:ROMANA SAMSON MD 04/07/18 Ranitidine Hcl (ZANTAC 75) 75 Mg Tablet, 1 TAB PO DAILY, #90 TAB 4 Refills Prov:ROMANA SAMSON MD 12/03/17 Polyethylene Glycol 3350 (POLYETHYLENE GLYCOL 3350) 17 Gm Powd.pack, 17 GM PO QDAY, #30 PACKET Prov:DAVID FERNANDES MD 09/05/17 Docusate Sodium (COLACE) 100 Mg Capsule, 1 CAP PO BID, #180 CAPSULE 3 Refills Prov:JENNIFER MILLS APRN PRODUCTION DESIGNER-C 03/11/17 Bisacodyl (DULCOLAX) 10 Mg Supp.rect, 1 SUPP.RECT RC DAILY PRN for CONSTIPATION, #15 SUPP.RECT 11 Refills Prov:MURTAZA CANTU MD 02/13/17 Reported Medications Vit A,C & E/Lutein/Minerals (OCUVITE TABLET) 1 Each Tablet, 1 EACH PO DAILY 04/29/18 Acetaminophen (TYLENOL EXTRA STRENGTH) 500 Mg Tablet, 2 TAB PO TID, CAP 04/29/18 Magnesium Hydroxide (MILK OF MAGNESIA) 400 Mg/5 Ml Oral.susp, 30 ML PO DAILY PRN for CONSTIPATION, BOTTLE 03/12/18 Dextran 70/Hypromellose (ARTIFICIAL TEARS EYE DROPS) 15 Ml Drops, 1 DROP OP TID for Dry Eyes Apply 1 drop to each eye three times daily. 03/12/18 Prednisolone Sod Phos 15 Mg/5 Ml (PREDNISOLONE SOD PHOS 15 MG/5 ML) 15 Mg/5 Ml Solution, 1 DROP OP BID for Glaucoma, BOT Apply 1 drop to left eye BID. 03/12/18 Calcium Carbonate/Vitamin D3 (CALCIUM 500 + D TABLET) 1 Each Tablet, 1 TAB PO BID 10/30/17 Oxygen (OXYGEN) Inha, 1 L INH, L 11/23/16 Past Medical/Surgical History Past Medical History Reviewed: Yes HEENT: Reports hx of: cataracts Cardiovascular: Reports hx of: atrial fibrillation CHF Genitourinary: Reports hx of: urinary tract infection Musculoskeletal: Reports hx of: fractures (right hip 2013, Compression fracture 2017, pelvic 2018) rheumatoid arthritis Endocrine: Reports hx of: hypothyroidism Infectious disease: Reports hx of: other infectious disease (osteomyelitis of the spine 2016) Gynecologic: Reports hx of: oophorectomy other surgery (ESWL) Musculoskeletal: Reports hx of: fracture repair (right hip pinned 2013) Smoking Status: Former Smoker Exposure to Second Hand Smoke?: No Alcohol Use: Former Social history: Marital Status: Living Situation: assisted living Hx Smoking: No Smoking Status: Former Smoker Exposure to Second Hand Smoke?: No Hx Substance Use Disorder: No Hx Alcohol Use: No Constitutional Vital Sign - Last 24 Hours 01/12/19 01/12/19 01/12/19 01/12/19 09:13 09:14 09:27 09:28 Pulse 106 94 Resp 16 B/P (MAP) 143/112 143/112 (122) 114/77 (89) Pulse Ox 97 98 O2 Delivery Nasal Cannula 01/12/19 01/12/19 01/12/19 01/12/19 09:30 09:42 09:57 10:12 Pulse 85 84 97 Resp 20 28 B/P (MAP) 130/86 (101) Pulse Ox 99 99 01/12/19 01/12/19 01/12/19 01/12/19 10:15 10:20 10:22 10:30 Pulse 90 Resp 6 B/P (MAP) 130/80 (97) 109/72 (84) Pulse Ox 100 O2 Flow Rate 2.0 01/12/19 01/12/19 01/12/19 01/12/19 10:40 10:45 11:00 11:20 Pulse 96 84 119 Resp 32 13 10 B/P (MAP) 117/62 (80) 118/71 (87) Pulse Ox 100 99 01/12/19 01/12/19 11:30 11:40 Pulse 110 B/P (MAP) 121/104 (110) Physical Exam General Appearance: The patient is alert, has no immediate need for airway protection and no signs of toxicity. Eyes: Pupils equal and round no pallor or injection. ENT, Mouth: Mucous membranes are moist. Respiratory: There are no retractions, lungs are clear to auscultation. Cardiovascular: heart rate Is irregularly irregular Gastrointestinal: Abdomen is soft and non tender, no masses, bowel sounds normal. Neurological: GCS is 15. See below for complete NIH stroke scale Skin: Warm and dry, no rashes. Musculoskeletal: Neck is supple non tender. Clinical Pharmacy Coordinator strength normal, facial symmetry normal. Extremities are nontender, nonswollen and have full range of motion. NIH Stroke Scale: 1 Level of consciousness: Alert -0 Answers both questions correctly-0 Performs both tasks correctly-0 Best Gaze: Normal-0 Visual: No visual loss-0 Facial Palsy: Normal, symmetrical movements-0 Motor Left Arm: No drift for 10 seconds-0 Motor Right Arm: No drift for 10 seconds-0 Motor Left Leg: No drift for 5 seconds-0 Motor Right Leg: No drift for 5 seconds-0 Limb Ataxia: Absent-0 Sensory: Normal, no sensory loss-0 Best Language: None-0 Dysarthria: Mild to moderate dysarthria-1 Extinction and Inattention: No abnormality-0 Medical Decision Making Data Points Result Diagram: 01/12/19 0929 01/12/19 1003 Laboratory Hematology Test 01/12/19 09:26 01/12/19 09:29 01/12/19 10:03 Urine Color Yellow Urine Clarity Cloudy Urine pH 8.0 pH (4.8-9.5) Urine Specific [place] 1.008 Urine Protein Negative mg/dL (NEGATIVE) Urine Glucose (UA) Negative mg/dL (NEGATIVE) Urine Ketones Negative mg/dL (NEGATIVE) Urine Blood Small (NEGATIVE) Urine Nitrite Negative (NEGATIVE) Urine Bilirubin Negative (NEGATIVE) Urine Urobilinogen 2.0 mg/dL (0.2-1.9) Urine Leukocyte Esterase Large (NEGATIVE) Urine RBC 3 /HPF (0-2/HPF) Urine WBC 377 /HPF (0-5/HPF) Urine Squamous Epithelial Cells Moderate /LPF (</=FEW) Urine Bacteria Moderate /HPF (NONE-FEW) Urine Mucus None /HPF (NONE-FEW) Red Blood Count 4.14 M/uL (4.17-5.56) Mean Corpuscular Volume 102.0 fL (80.0-96.0) Mean Corpuscular Hemoglobin 33.7 pg (26.0-33.0) Mean Corpuscular Hemoglobin Concent 33.0 g/dL (32.0-36.0) Red Cell Distribution Width 14.7 % (11.5-14.5) Mean Platelet Volume 8.4 fL (7.2-11.1) Neutrophils (%) (Auto) 57.1 % (39.4-72.5) Lymphocytes (%) (Auto) 23.6 % (17.6-49.6) Monocytes (%) (Auto) 15.4 % (4.1-12.4) Eosinophils (%) (Auto) 3.3 % (0.4-6.7) Basophils (%) (Auto) 0.6 % (0.3-1.4) Nucleated RBC Relative Count (auto) 0.1 /100WBC Neutrophils # (Auto) 2.2 K/uL (2.0-7.4) Lymphocytes # (Auto) 0.9 K/uL (1.3-3.6) Monocytes # (Auto) 0.6 K/uL (0.3-1.0) Eosinophils # (Auto) 0.1 K/uL (0.0-0.5) Basophils # (Auto) 0.0 K/uL (0.0-0.1) Nucleated RBC Absolute Count (auto) 0.00 K/uL Prothrombin Time 13.9 seconds (12.0-14.4) Prothromb Time International Ratio 1.07 Activated Partial Thromboplast Time 31 seconds (23-35) Sodium Level 139 mmol/L (137-145) Potassium Level 4.5 mmol/L (3.5-5.0) Chloride Level 102 mmol/L (98-107) Carbon Dioxide Level 31 mmol/L (22-31) Blood Urea Nitrogen 20 mg/dl (7-18) Creatinine 0.80 mg/dl (0.52-1.04) Glomerular Filtration Rate Calc > 60.0 Random Glucose 145 mg/dl (75-110) Calcium Level 8.9 mg/dl (8.4-10.2) Total Bilirubin 0.4 mg/dl (0.2-1.3) Aspartate Amino Transf (AST/SGOT) 14 U/L (0-35) Alanine Aminotransferase (ALT/SGPT) 19 U/L (0-56) Alkaline Phosphatase 125 U/L (0-126) Troponin I < 0.012 ng/ml Total Protein 6.9 g/dl (6.3-8.2) Albumin 3.8 g/dl (3.5-5.0) Chemistry Test 01/12/19 09:26 01/12/19 09:29 01/12/19 10:03 Urine Color Yellow Urine Clarity Cloudy Urine pH 8.0 pH (4.8-9.5) Urine Specific [place] 1.008 Urine Protein Negative mg/dL (NEGATIVE) Urine Glucose (UA) Negative mg/dL (NEGATIVE) Urine Ketones Negative mg/dL (NEGATIVE) Urine Blood Small (NEGATIVE) Urine Nitrite Negative (NEGATIVE) Urine Bilirubin Negative (NEGATIVE) Urine Urobilinogen 2.0 mg/dL (0.2-1.9) Urine Leukocyte Esterase Large (NEGATIVE) Urine RBC 3 /HPF (0-2/HPF) Urine WBC 377 /HPF (0-5/HPF) Urine Squamous Epithelial Cells Moderate /LPF (</=FEW) Urine Bacteria Moderate /HPF (NONE-FEW) Urine Mucus None /HPF (NONE-FEW) White Blood Count 3.9 k/uL (4.5-11.0) Red Blood Count 4.14 M/uL (4.17-5.56) Hemoglobin 14.0 g/dL (12.0-16.0) Hematocrit 42.3 % (34.0-47.0) Mean Corpuscular Volume 102.0 fL (80.0-96.0) Mean Corpuscular Hemoglobin 33.7 pg (26.0-33.0) Mean Corpuscular Hemoglobin Concent 33.0 g/dL (32.0-36.0) Red Cell Distribution Width 14.7 % (11.5-14.5) Platelet Count 267 K/uL (150-450) Mean Platelet Volume 8.4 fL (7.2-11.1) Neutrophils (%) (Auto) 57.1 % (39.4-72.5) Lymphocytes (%) (Auto) 23.6 % (17.6-49.6) Monocytes (%) (Auto) 15.4 % (4.1-12.4) Eosinophils (%) (Auto) 3.3 % (0.4-6.7) Basophils (%) (Auto) 0.6 % (0.3-1.4) Nucleated RBC Relative Count (auto) 0.1 /100WBC Neutrophils # (Auto) 2.2 K/uL (2.0-7.4) Lymphocytes # (Auto) 0.9 K/uL (1.3-3.6) Monocytes # (Auto) 0.6 K/uL (0.3-1.0) Eosinophils # (Auto) 0.1 K/uL (0.0-0.5) Basophils # (Auto) 0.0 K/uL (0.0-0.1) Nucleated RBC Absolute Count (auto) 0.00 K/uL Prothrombin Time 13.9 seconds (12.0-14.4) Prothromb Time International Ratio 1.07 Activated Partial Thromboplast Time 31 seconds (23-35) Glomerular Filtration Rate Calc > 60.0 Calcium Level 8.9 mg/dl (8.4-10.2) Total Bilirubin 0.4 mg/dl (0.2-1.3) Aspartate Amino Transf (AST/SGOT) 14 U/L (0-35) Alanine Aminotransferase (ALT/SGPT) 19 U/L (0-56) Alkaline Phosphatase 125 U/L (0-126) Troponin I < 0.012 ng/ml Total Protein 6.9 g/dl (6.3-8.2) Albumin 3.8 g/dl (3.5-5.0) Coagulation Test 01/12/19 10:03 Prothrombin Time 13.9 seconds Prothromb Time International Ratio 1.07 Activated Partial Thromboplast Time 31 seconds Urinalysis Test 01/12/19 09:26 Urine Color Yellow Urine Clarity Cloudy Urine pH 8.0 pH (4.8-9.5) Urine Specific [place] 1.008 Urine Protein Negative mg/dL (NEGATIVE) Urine Glucose (UA) Negative mg/dL (NEGATIVE) Urine Ketones Negative mg/dL (NEGATIVE) Urine Blood Small (NEGATIVE) Urine Nitrite Negative (NEGATIVE) Urine Bilirubin Negative (NEGATIVE) Urine Urobilinogen 2.0 mg/dL (0.2-1.9) Urine Leukocyte Esterase Large (NEGATIVE) Urine RBC 3 /HPF (0-2/HPF) Urine WBC 377 /HPF (0-5/HPF) Urine Squamous Epithelial Cells Moderate /LPF (</=FEW) Urine Bacteria Moderate /HPF (NONE-FEW) Urine Mucus None /HPF (NONE-FEW) EKG/Imaging EKG Interpretation EKG shows atrial fibrillation with a ventricular rate of 111 bpm. Monitor Interpretation: Atrial Fibrillation Imaging FACILITY: [facility] PATIENT NAME: Effie Ordonez : 1930 MR: [id number] V: [id number] EXAM DATE: ORDERING PHYSICIAN: DORA GARCIA TECHNOLOGIST: Location: [facility] Patient: Effie Ordonez : 1930 Visit/Account:[id number] Date of Sevice: 01/12/[address] scan without contrast COMPARISONS: CT of the head without contrast dated December 01, 2018 ADDITIONAL PERTINENT HISTORY: Right arm weakness TECHNIQUE: Multiple axial images were obtained from the skull base to the vertex without IV contrast. One of the following dose optimization techniques was utilized in the performance of this exam: Automated exposure control; adjustment of the mA and/or kV according to the patient's size; or use of an iterative reconstruction technique. Specific details can be referenced in the facility's radiology CT exam operational policy. FINDINGS: Midline shift: Interval development of mild midline shift from right to left measuring 5 mm. This is new from previous exam. Ventricles: Negative Brain parenchyma: Patchy hypoattenuation within the periventricular and subcortical white matter compatible with small vessel ischemic change on a chronic basis. No intraparenchymal hemorrhage. Extra-axial spaces: Mixed density left cerebral hemispheric subdural hematoma measuring 8 mm in maximum thickness. Intracranial vasculature: Cavernous internal carotid artery calcifications. Otherwise negative Osseous structures: Negative Paranasal sinuses and mastoid air cells: Small mucous retention cysts involving both maxillary sinuses. Continued opacification of the mastoid air cells bilaterally. Surrounding soft tissues and orbits: Interval resolution of the previously described right periorbital soft tissue hematoma. IMPRESSION: 1. Interval development of a mixed density left cerebral hemispheric subdural hematoma measuring 7 mm in greatest thickness with 5 mm of midline shift from left to right. 2. Interval resolution of the previously described right frontal subarachnoid hemorrhage. Results were discussed with DORA GARCIA at 01/12/2019 10:02 AM. Report Dictated By: Johnson Smith MD at 01/12/2019 9:56 AM Report E-Signed By: Johnson Smith MD at 01/12/2019 10:02 AM WSN:[id number] ED Course/Re-evaluation ED Course 01/12/2019 10:30:[address] scan shows hyperacute left subdural hemorrhage. Patient denies having history of fall since November 23. Radiologist notes that t his finding of subdural was not seen on imaging on December 01. Discussed wants and needs for the patient. Patient is against any type of transfer out of the [place]. She is a DNR/DNI. I discussed the current case with the patient's primary care provider Dr. Romana Samson; plan will be to check coagulation studies. We will also from the case by neurosurgery. 01/12/2019 10:39:53 am patient had sudden onset of complete aphasia at 1037. I went into evaluate the patient and she is now starting to regain her ability to speak. Clearly the concern with the CT findings of hyperacute bleed would be worsening of bleeding and/or midline shift. We will perform emergent noncontrast CT to compare to prior. Family was updated. I am waiting to hear from neurosurgery for phone consultation. 01/12/2019 11:56:[address] scan shows no interval change in subdural. I spoke with Dr. Owens from [facility], neurology with regard to this patient. He understands the patient had a new episode of a fissure. States that if the CT scan is unchanged he feels that she is having partial complex seizures. Recommended starting Keppra IV at 500 mg twice per day. Further recommended repeat CT scan in the morning to ensure no enlargement of subdural. He stated that they would be happy to accept the patient, for transfer if they so desired. I had a long discussion with the patient and her d aughter. They do not wish to be transferred. Understanding that if symptoms worsen or she has further bleeding there might be a surgical intervention required. Patient and daughter state that they would most likely not seek further aggressive treatment as patient is currently DNR/DNI and does not wish transfer to any facility outside of [place]. 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
[2019-01-12 09:36] LABS: PLATELET COUNT, AUTOMATED 267 K/uL (150-450)
--- NOTE | 2019-01-12 09:39 | EKG ---
FACILITY: [facility] PATIENT NAME: NOVA BLANCA : [id number] MR: [id number] V: [id number] EXAM DATE: ORDERING PHYSICIAN: DORA GARCIA TECHNOLOGIST: RADHA Test Reason : POSSIBLE STROKE Blood Pressure : / mmHG Vent. Rate : 111 BPM Atrial Rate : 375 BPM P-R Int : 000 ms QRS Dur : 116 ms QT Int : 332 ms P-R-T Axes : 000 -42 122 degrees QTc Int : 451 ms Atrial fibrillation Left axis deviation Nonspecific interventricular conduction delay Diffuse artifact - repeat if necessary Abnormal ECG Confirmed by BART MERCADO ([id number]) on 01/12/2019 2:53:27 PM Referred By: RADHA Confirmed By:BART MERCADO
--- NOTE | 2019-01-12 10:07 | RADIOLOGY IMAGING REPORT ---
FACILITY: [facility] [place] PATIENT NAME: Effie Ordonez : 1930 MR: [id number] V: [id number] EXAM DATE: ORDERING PHYSICIAN: DORA GARCIA TECHNOLOGIST: Location: [facility] [place] Patient: Effie Ordonez : 1930 Visit/Account:[id number] Date of Sevice: 01/12/[address] scan without contrast COMPARISONS: CT of the head without contrast dated December 01, 2018 ADDITIONAL PERTINENT HISTORY: Right arm weakness TECHNIQUE: Multiple axial images were obtained from the skull base to the vertex without IV contrast . One of the following dose optimization techniques was utilized in the performance of this exam: Aut omated exposure control; adjustment of the mA and/or kV according to the patient's size; or use of an iterative reconstruction technique. Specific details can be referenced in the facility's radiology CT exam operational policy. FINDINGS: Midline shift: Interval development of mild midline shift from right to left measuring 5 mm. This is new from previous exam. Ventricles: Negative Brain parenchyma: Patchy hypoattenuation within the periventricular and subcortical white matter com patible with small vessel ischemic change on a chronic basis. No intraparenchymal hemorrhage. Extra-axial spaces: Mixed density left cerebral hemispheric subdural hematoma measuring 8 mm in maxi mum thickness. Intracranial vasculature: Cavernous internal carotid artery calcifications. Otherwise negative Osseous structures: Negative Paranasal sinuses and mastoid air cells: Small mucous retention cysts involving both maxillary sinus es. Continued opacification of the mastoid air cells bilaterally. Surrounding soft tissues and orbits: Interval resolution of the previously described right periorbit al soft tissue hematoma. IMPRESSION: 1. Interval development of a mixed density left cerebral hemispheric subdural hematoma measuring 7 m m in greatest thickness with 5 mm of midline shift from left to right. 2. Interval resolution of the previously described right frontal subarachnoid hemorrhage. Results were discussed with DORA GARCIA at 01/12/2019 10:02 AM. Report Dictated By: Johnson Smith MD at 01/12/2019 9:56 AM Report E-Signed By: Johnson Smith MD at 01/12/2019 10:02 AM WSN:[id number]
[2019-01-12 10:28] LABS: INR 1.07
--- NOTE | 2019-01-12 11:11 | RADIOLOGY IMAGING REPORT ---
FACILITY: [facility] - [place] PATIENT NAME: Effie Ordonez : 1930 MR: [id number] V: [id number] EXAM DATE: ORDERING PHYSICIAN: DORA GARCIA TECHNOLOGIST: Location: [facility] [place] Patient: Effie Ordonez : 1930 Visit/Account:[id number] Date of Sevice: 01/12/[address] scan without contrast COMPARISONS: Head CT scan dated earlier same day. ADDITIONAL PERTINENT HISTORY: Aphasia, new onset TECHNIQUE: Multiple axial images were obtained from the skull base to the vertex without IV contrast . One of the following dose optimization techniques was utilized in the performance of this exam: Aut omated exposure control; adjustment of the mA and/or kV according to the patient's size; or use of an iterative reconstruction technique. Specific details can be referenced in the facility's radiology CT exam operational policy. FINDINGS: Midline shift: 5 mm midline shift from left to right. Ventricles: Negative Brain parenchyma: Patchy hypoattenuation within the periventricular and subcortical white matter, no nspecific but likely representing small vessel ischemic change on a chronic basis. Extra-axial spaces: Persistent and stable mixed density left cerebral hemispheric subdural hematoma with maximum thickness of 7 mm. No new extra-axial fluid collections. Intracranial vasculature: Cavernous internal carotid artery calcifications. Otherwise negative Osseous structures: Negative Paranasal sinuses and mastoid air cells: Moderate mucosal thickening involving the right sphenoid si nus. Surrounding soft tissues and orbits: Negative IMPRESSION: 1. Stable left cerebral hemispheric subdural hematoma with stable midline shift from left to right. 2. No new findings when compared to the recent exam. Report Dictated By: Johnson Smith MD at 01/12/2019 11:03 AM Report E-Signed By: Johnson Smith MD at 01/12/2019 11:06 AM WSN:[id number]
[2019-01-12] MEDS ORDERED: levETIRAcetam(*)500 MG/5 ML VI 500 MG in NS(*) 0.9% 100 ML BAG 100 ML IVPB ONE (12:00)
[2019-01-12] MEDS ORDERED: BISACODYL 10 MG SUPP PR PRN (13:10)
[2019-01-12] MEDS ORDERED: MAGNESIUM HYDROXIDE* 30ML UDCP PO PRN (13:10)
[2019-01-12] MEDS ORDERED: HYPROMELLOSE 0.4% LUB 15ML BTL OU PRN (13:10)
[2019-01-12 13:19] VITALS: BP 98/79
--- NOTE | 2019-01-12 13:50 | History & Physical ---
History of Present Illness Chief Complaint Possible stroke History of Present Illness 88yo female with PMHx significant for chronic atrial fibrillation (no longer on anticoagulation), fall in 11/2018 with pelvic fracture and SAH (while on anticoag ulation). She currently resides at [facility]. Nursing noted some right facial droop and possible RUE weakness. The patient reports she was aware of difficulty communicating as she felt she knew what she would like to say, but could not speak and words. She was evaluated in the ER and noted to have an episode of inattentiveness with complete aphasia. Her workup included CT scan of head which showed a mixed-density left sided subdural hematoma. It was re- evaluated with repeat CT after her aphasic episode to see if any expansion/re- bleeding and none was seen. Dr. Breaux (ER MD) discussed the case with neurology who felt she may be having complex partial seizures. She was started on IV Keppra in the ER. She was recommended for admission. History Problems: (1) Compression fracture Status: Resolved (2) Ribs, multiple fractures Status: Resolved (3) Fracture of right inferior pubic ramus Status: Resolved (4) Fracture of right superior pubic ramus Status: Resolved (5) Chronic pain Status: Chronic (6) Dermatitis Status: Chronic (7) Post herpetic neuralgia Status: Chronic (8) UTI (urinary tract infection) Status: Resolved (9) Urinary incontinence Status: Chronic (10) Osteoporosis (11) CHF (congestive heart failure) Status: Chronic (12) SAH (subarachnoid hemorrhage) Status: Acute (13) Hip fracture requiring operative repair Status: Resolved (14) Osteomyelitis Status: Resolved (15) HYPOTHYROIDISM, UNSPECIFIED Status: Chronic (16) CHRONIC ATRIAL FIBRILLATION Status: Chronic (17) Rheumatoid arthritis Status: Chronic (18) S/P cholecystectomy Status: Resolved Home Meds Active Scripts Oxycodone Hcl (OXYCODONE HCL) 5 Mg Tablet, 5 MG PO QDAY PRN for pain, #20 TAB Prov:NADJA SAMSON MD 12/29/18 Oxycodone Hcl (OXYCONTIN) 10 Mg Tab.er.12h, 10 MG PO Q12H for 30 Days, #60 TAB Prov:NADJA SAMSON MD 12/29/18 Furosemide (FUROSEMIDE) 20 Mg Tablet, 1 TAB PO DAILY for 90 Days, #90 TAB 4 Refills Prov:NADJA SAMSON MD 12/15/18 Levothyroxine Sodium (LEVOTHYROXINE SODIUM) 150 Mcg Tablet, 1 TAB PO QDAY for 90 Days, #90 TAB 4 Refills Prov:NADJA SAMSON MD 08/05/18 Potassium Chloride (Potassium Chloride) 20 Meq Tablet.er, 1 TAB PO DAILY for 90 Days, #90 TAB 4 Refills Prov:NADJA SAMSON MD 06/05/18 Diltiazem Hcl (DILTIAZEM 24HR ER) 240 Mg Cap.er.24h, 1 CAP PO QDAY, #90 TAB 4 Refills Prov:NADJA SAMSON MD 06/05/18 Estradiol (ESTRACE) 42.5 Gm Cream.appl, 1 GM VG twice weekly for 90 Days, #90 JOSEF 4 Refills Prov:NADJA SAMSON MD 04/10/18 Gabapentin (GABAPENTIN) 100 Mg Capsule, 1-2 CAP PO BID, #4 CAPSULE 11 Refills take one cap in the am and two cap in the pm Prov:NADJA SAMSON MD 04/07/18 Ranitidine Hcl (ZANTAC 75) 75 Mg Tablet, 1 TAB PO DAILY, #90 TAB 4 Refills Prov:NADJA SAMSON MD 12/03/17 Polyethylene Glycol 3350 (POLYETHYLENE GLYCOL 3350) 17 Gm Powd.pack, 17 GM PO QDAY, #30 PACKET Prov:DVAID MERCADO MD 09/05/17 Docusate Sodium (COLACE) 100 Mg Capsule, 1 CAP PO BID, #180 CAPSULE 3 Refills Prov:JENNIFER MILLS APRN CHIMNEY REPAIRER-C 03/11/17 Bisacodyl (DULCOLAX) 10 Mg Supp.rect, 1 SUPP.RECT RC DAILY PRN for CONSTIPATION, #15 SUPP.RECT 11 Refills Prov:MURTAZA CANTU MD 02/13/17 Reported Medications Vit A,C & E/Lutein/Minerals (OCUVITE TABLET) 1 Each Tablet, 1 EACH PO DAILY 04/29/18 Acetaminophen (TYLENOL EXTRA STRENGTH) 500 Mg Tablet, 2 TAB PO TID, CAP 04/29/18 Magnesium Hydroxide (MILK OF MAGNESIA) 400 Mg/5 Ml Oral.susp, 30 ML PO DAILY PRN for CONSTIPATION, BOTTLE 03/12/18 Dextran 70/Hypromellose (ARTIFICIAL TEARS EYE DROPS) 15 Ml Drops, 1 DROP OP TID for Dry Eyes Apply 1 drop to each eye three times daily. 03/12/18 Prednisolone Sod Phos 15 Mg/5 Ml (PREDNISOLONE SOD PHOS 15 MG/5 ML) 15 Mg/5 Ml Solution, 1 DROP OP BID for Glaucoma, BOT Apply 1 drop to left eye BID. 03/12/18 Calcium Carbonate/Vitamin D3 (CALCIUM 500 + D TABLET) 1 Each Tablet, 1 TAB PO BID 10/30/17 Oxygen (OXYGEN) Inha, 1 L INH, L 11/23/16 Allergies: Coded Allergies: codeine (Unverified Allergy, Severe, ANAPHYLAXIS, 12/01/18) morphine (Verified Allergy, Severe, ANAPHYLAXIS, 12/01/18) Hx Smoking: Yes Smoking Status: Former Smoker Exposure to Second Hand Smoke?: No Caffeine Intake: Tea Caffeine/Cups Per Day: 1 cup, usually decaffeinated Hx Alcohol Use: No Hx Substance Use Disorder: No Review of Systems Constitutional: No Fever, No Chills Neurological: Weakness Cardiovascular: Palpitations; No Chest Pain Respiratory: No Shortness of Breath Genitourinary: No Dysuria Musculoskeletal: Pain Exam Vital Signs Vital Signs Date Time Temp Pulse Resp B/P (MAP) Pulse Ox O2 Delivery O2 Flow Rate FiO2 01/12/19 12:30 99/83 (88) 01/12/19 12:25 93 24 99 01/12/19 10:22 2.0 01/12/19 09:13 Nasal Cannula General Appearance: Alert, Awake Neuro: Other (CN intact/Motor exam shows diffuse weakness, but no focal changes noted/speech is fluent) Eyes: PERRLA, Other (EOMI) ENT: Oropharynx Clear Neck: No Masses Cardiovascular: Other (Irregular with systolic murmur) Respiratory: Clear to Auscultation Chest: No Masses GI: Abd Soft and Non-Tender Extremities: Warm, Perfused Integumentary: Generalized Fragile Skin Psych: Alert & Oriented X3 Medical Decision Making Data Points Result Diagram: 01/12/19 0929 01/12/19 1003 EKG / Imaging Imaging PATIENT NAME: Effie Ordonez : 1930 MR: [id number] V: [id number] EXAM DATE: ORDERING PHYSICIAN: DORA BREAUX TECHNOLOGIST: Location: [facility] Patient: Effie Ordonez: 1930 Visit/Account:[id number] Date of Sevice: 01/12/[address] scan without contrast COMPARISONS: CT of the head without contrast dated December 01, 2018 ADDITIONAL PERTINENT HISTORY: Right arm weakness TECHNIQUE: Multiple axial images were obtained from the skull base to the vertex without IV contrast. One of the following dose optimization techniques was utilized in the performance of this exam: Automated exposure control; adjustment of the mA and/or kV according to the patient's size; or use of an iterative reconstruction technique. Specific details can be referenced in the facility's radiology CT exam operational policy. FINDINGS: Midline shift: Interval development of mild midline shift from right to left measuring 5 mm. This is new from previous exam. Ventricles: Negative Brain parenchyma: Patchy hypoattenuation within the periventricular and subcortical white matter compatible with small vessel ischemic change on a chronic basis. No intraparenchymal hemorrhage. Extra-axial spaces: Mixed density left cerebral hemispheric subdural hematoma measuring 8 mm in maximum thickness. Intracranial vasculature: Cavernous internal carotid artery calcifications. Otherwise negative Osseous structures: Negative Paranasal sinuses and mastoid air cells: Small mucous retention cysts involving both maxillary sinuses. Continued opacification of the mastoid air cells bilaterally. Surrounding soft tissues and orbits: Interval resolution of the previously described right periorbital soft tissue hematoma. IMPRESSION: 1. Interval development of a mixed density left cerebral hemispheric subdural hematoma measuring 7 mm in greatest thickness with 5 mm of midline shift from left to right. 2. Interval resolution of the previously described right frontal subarachnoid hemorrhage. Results were discussed with DORA BREAUX at 01/12/2019 10:02 AM. Report Dictated By: Johnson Smith MD at 01/12/2019 9:56 AM Report E-Signed By: Johnson Smith MD at 01/12/2019 10:02 AM [id number] Assessment and Plan Problems: (1) Subdural hematoma Status: Acute Assessment & Plan: Probably some old blood and new bleeding. She may be having focal seizures with it as well. Will continue the Keprra as recommended by neurology. The patient and her family have decided they do not want to pursue any aggressive interventions such as transfer/surgery. She does understand if she did have recurrent bleeding her condition could worsen, even to the point of . She will definitely not be able to have any kind of anticoagulant/antiplatelet therapy. (2) UTI (urinary tract infection) Status: Resolved Assessment & Plan: She has pyuria on UA. Urine culture has been done. Will place on IV Rocephin based on her previous urine culture results. Modify as needed. (3) CHRONIC ATRIAL FIBRILLATION Status: Chronic Assessment & Plan: Contineu diltiazem for rate control. She is not a candidate for anticoagulation therapy due to previous/current intracranial bleeds. (4) HYPOTHYROIDISM, UNSPECIFIED Status: Chronic Assessment & Plan: Continue replacement therapy. (5) Pelvic fracture Status: Acute Assessment & Plan: She is approximately 6 weeks out from injury. Will work on some basic mobilization. Copies to: NADJA SAMSON MD ; Venous Thromboembolism Antithrombotics Is Pt On Any Antithrombotics?: No Prophylaxis Tx Contraindicated Pharmacological Contraindicati: Hemorrhagic CVA (subdural hematoma) Exam Sepsis Risk: No Definite Risk BART MERCADO MD Jan 12, 2019 13:50
[2019-01-12] MEDS: NS(*) 0.9% 1000 ML BAG 1,000 ML IV PRN (15:10)
[2019-01-12] MEDS: ACETAMINOPHEN 325 MG TAB PO PRN (15:10)
[2019-01-12] MEDS: oxyCODONE HCL 5 MG CAP PO PRN (15:11)
[2019-01-12] MEDS: cefTRIAXone 1 GM VIAL IVP SCH (15:12)
--- NOTE | 2019-01-12 15:42 | NUR ---
Occupational Therapy Impression OT evaluation completed. Pt. would benefit from OT services 5x/ week to increase independence in ADL activities. Occupational Therapy Goals 1. Pt. to perform dressing activities with Min A. 2. Pt. to perform showering activities with Min A. 3. Pt. to perform grooming/hygiene activities with I. 4. Pt. to perform toileting activities with Mod I. Patient's Goal
--- NOTE | 2019-01-12 17:44 | NUR ---
Physical Therapy Impression PT betty completed. Pt resting in bed upon PT arrival but rouses easily and notes that she would like to get up to the bedside chair for dinner. Speech becomes slightly more slurred after sitting up to edge of bed with lower tone noted in lip musculature and increased difficulty pursing lips to swallow saliva. Pt requested to transfer first to bedside commode and then was offered to return to bed, however, pt again requested to remain up in recliner for evening meal. Pt only required CGA to complete [id number] transfer with FWW to chair and was indep to scoot back for repositioning once seated. Pt's speech became more clear again after a brief rest break and pt was able to state her full name and date of correctly. Physical Therapy Goals 1. Pt to be CGA/SBA for bed mobility and supine to/from sit transfers 2. Pt to be CGA/SBA for sit to/from stand transfers 3. Pt to be CGA/SBA for pivot to/from a variety of surfaces 4. Pt to be able to recall safety measures and to call for assistance for mobility. Patient's Goals
[2019-01-12] MEDS: CALCIUM CARBONATE/VITAMIN D3 PO SCH (18:37)
[2019-01-12 19:09] VITALS: BP 112/72
[2019-01-12] MEDS: GABAPENTIN 100 MG CAP PO SCH (20:33)
[2019-01-12] MEDS: DOCUSATE SODIUM 100 MG CAP PO SCH (20:33)
[2019-01-12] MEDS ORDERED: levETIRAcetam(*)500 MG/5 ML VI 500 MG in NS(*) 0.9% 100 ML BAG 100 ML IV ONE (22:00)
[2019-01-13 02:00] VITALS: BP 119/80
[2019-01-13 04:30] VITALS: BP 124/78
[2019-01-13] MEDS: oxyCODONE HCL 5 MG CAP PO PRN ×2 (04:36→14:54)
[2019-01-13] MEDS: LEVOTHYROXINE SOD 0.150 MG TAB PO SCH (05:49)
[2019-01-13 08:22] VITALS: BP 110/94
--- NOTE | 2019-01-13 08:59 | RADIOLOGY IMAGING REPORT ---
FACILITY[place] [facility] [place]IENT NAME: Effie Ordonez : 1930 MR: [id number] V: [id number] EXAM DATE: ORDERING PHYSICIAN: BART MERCADO TECHNOLOGIST: Location: [facility] [place] Patient: Effie Ordonez : 1930 Visit/Account:[id number] Date of Sevice: 01/13/2019 CT BRAIN NO CONTRAST HISTORY: follow up subdural hematoma COMPARISON STUDIES: CT brain January 12, 2019 TECHNIQUE: Contiguous axial images were obtained from the skull base to the vertex. One of the following dose optimization techniques was utilized in the performance of this exam: Autom ated exposure control; adjustment of the mA and/or kV according to the patient's size; or use of an i terative reconstruction technique. Specific details can be referenced in the facility's radiology C T exam operational policy. FINDINGS: Hemorrhage: Again noted is an acute upon chronic subdural fluid/bleed in the left side. Its appearan ce is similar to that noted on the prior exam in its maximum thickness is a 7 mm. There is again not ed to be 3 mm of subfalcine herniation to the right as a result. This is also stable compared to the prior exam. Ventricles / sulci / fissures: There is mild mass effect upon the left lateral ventricle. Masses / midline shift: There is 3 mm of subfalcine shift to the right side as result of the patient' s acute on chronic subdural hematoma. White matter and henderson matter: There are findings of subtle lucency in the centrum semiovale suggestin g small vessel white matter ischemic change. In the inferior left basal ganglia there is again a 7 m m low-density lesion that likely represents a lacunar infarct. Sinuses: Visualized mastoid air cells / paranasal sinuses: There is diffuse fluid. The mastoid air c ells suggesting chronic sinusitis. There is no air-fluid level. There is minimal mucosal thickening in the right neck/sinus. Scalp and soft tissues: No scalp hematoma. Vascular/other findings: Carotid artery calcification bilaterally. Status post removal of the right and left optic lens. IMPRESSION: 1. 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 There i s relatively little acute blood in the hematoma. There is resultant subfalcine herniation to the rig ht of approximately 3 mm 2. Minimal and diffuse cerebral atrophy with small vessel white matter ischemic changes. Small jorge r infarct in the inferior aspect of the basal ganglia on the left side. These findings are stable. 3. Chronic sinusitis involving predominantly the mastoid air cells bilaterally. Report Dictated By: Solitario Reardon MD at 01/13/2019 8:39 AM Report E-Signed By: Solitario Reardon MD at 01/13/2019 8:53 AM WSN:[id number]
[2019-01-13] MEDS: CALCIUM CARBONATE/VITAMIN D3 PO SCH ×2 (09:36→14:54)
[2019-01-13] MEDS: DOCUSATE SODIUM 100 MG CAP PO SCH ×2 (09:37→21:06)
[2019-01-13] MEDS: levETIRAcetam 500 MG TAB PO SCH ×2 (09:37→21:06)
[2019-01-13] MEDS: GABAPENTIN 100 MG CAP PO SCH ×2 (09:37→21:06)
[2019-01-13] MEDS: DILTIAZEM CD 120 MG CAPCR PO SCH (09:37)
--- NOTE | 2019-01-13 10:25 | Hospitalist Progress Note ---
Subjective Progress Notes Subjective She denies any complaints this morning. Nursing staff notes some neurological deficits. She had no acute events overnight. Patient Complains of: Cardiovascular: No: Chest Pain Respiratory: No: Shortness of Breath Physical Exam Vital Signs Date Time Temp Pulse Resp B/P (MAP) Pulse Ox O2 Delivery O2 Flow Rate FiO2 01/13/19 08:44 93 Nasal Cannula 2.0 01/13/19 08:22 98.0 130 20 110/94 (99) Intake and Output 01/13/19 00:59 Intake Total 425 ml Balance 425 ml Intake Oral 320 ml IV Total 105 ml # Voids 8 General Appearance: Alert, Awake, No Acute Distress, Afebrile Neuro: Other (diffuse weakness noted throughout, normal speech) Cardiovascular: Regular Rate and Rhythm Respiratory: No Respiratory Distress, Clear to Auscultation GI: Soft and Non-Tender Extremities: Warm, Perfused; No Edema Psych: Appropriate Mood & Affect Result Diagram: 01/12/19 0929 01/12/19 1003 Monitor Interpretation: Atrial Fibrillation Assessment and Plan Problems: (1) Subdural hematoma Status: Acute Assessment & Plan: Probably some old blood and new bleeding. She may be having focal seizures with it as well. Will continue the Keppra as recommended by neurology. The patient and her family have decided they do not want to pursue any aggressive interventions such as transfer/surgery. She does understand if she did have recurrent bleeding her condition could worsen, even to the point of . She will definitely not be able to have any kind of anticoagulant/antiplatelet therapy. Repeat CT performed this morning, shows some reduction in midline shift from 5mm to 3mm and hematoma is the same size as previous. (2) UTI (urinary tract infection) Status: Resolved Assessment & Plan: She has pyuria on UA. Urine culture pending. Will place on IV Rocephin based on her previous urine culture results. Modify as needed. (3) CHRONIC ATRIAL FIBRILLATION Status: Chronic Assessment & Plan: Contineu diltiazem for rate control. She is not a candidate for anticoagulation therapy due to previous/current intracranial bleeds. (4) HYPOTHYROIDISM, UNSPECIFIED Status: Chronic Assessment & Plan: Continue replacement therapy. (5) Pelvic fracture Status: Acute Assessment & Plan: She is approximately 6 weeks out from injury. Will work on some basic mobilization. Exam Sepsis Risk: No Definite Risk SUSAN CLAY SAILING OFFICER Jan 13, 2019 10:25
[2019-01-13 12:10] VITALS: Ht 172.7 cm; Wt 61.5 kg
[2019-01-13] MEDS ORDERED: INFLUENZA VIRUS VAC 0.5ML SYR IM ONLY ONE (13:10)
[2019-01-13] MEDS: cefTRIAXone 1 GM VIAL IVP SCH (14:49)
[2019-01-13] MEDS: ACETAMINOPHEN 325 MG TAB PO PRN (14:54)
[2019-01-13 16:00] VITALS: BP 110/78
[2019-01-13 20:03] VITALS: BP 118/99
[2019-01-13 23:30] VITALS: BP 131/66
[2019-01-14] MEDS: oxyCODONE HCL 5 MG CAP PO PRN ×3 (01:19→14:16)
[2019-01-14] MEDS: ACETAMINOPHEN 325 MG TAB PO PRN ×3 (01:19→14:16)
[2019-01-14 04:00] VITALS: BP 119/71
[2019-01-14] MEDS: NS(*) 0.9% 1000 ML BAG 1,000 ML IV PRN (04:06)
[2019-01-14] MEDS: LEVOTHYROXINE SOD 0.150 MG TAB PO SCH (05:50)
[2019-01-14 09:03] VITALS: BP 121/78
[2019-01-14] MEDS: DOCUSATE SODIUM 100 MG CAP PO SCH ×2 (09:10→20:29)
[2019-01-14] MEDS: GABAPENTIN 100 MG CAP PO SCH ×2 (09:10→20:29)
[2019-01-14] MEDS: CALCIUM CARBONATE/VITAMIN D3 PO SCH ×2 (09:11→17:07)
[2019-01-14] MEDS: levETIRAcetam 500 MG TAB PO SCH ×2 (09:11→20:29)
[2019-01-14] MEDS: DILTIAZEM CD 120 MG CAPCR PO SCH (09:11)
--- NOTE | 2019-01-14 10:24 | Hospitalist Progress Note ---
Subjective Progress Notes Subjective She was admitted with subdural hematoma. She has worsening aphasia today, with garbled speech. She appears weak. She states she isn't feeling well today. Patient Complains of: Neurological: Weakness, Slurred Speech Cardiovascular: No: Chest Pain Respiratory: No: Shortness of Breath Physical Exam Vital Signs Date Time Temp Pulse Resp B/P (MAP) Pulse Ox O2 Delivery O2 Flow Rate FiO2 01/14/19 09:03 97.6 83 12 121/78 (92) 97 Nasal Cannula 1.0 Intake and Output 01/14/19 07:00 Intake Total 1836 ml Balance 1836 ml Intake Oral 836 ml IV Total 1000 ml # Voids 10 # Bowel Movements 4 General Appearance: Alert, Awake, No Acute Distress, Afebrile Neuro: Other (slurred and garbled speech, weakness throughout extremities) Cardiovascular: Regular Rate and Rhythm Respiratory: No Respiratory Distress, Clear to Auscultation Extremities: Warm, Perfused; No Edema Psych: Appropriate Mood & Affect Result Diagram: 01/12/19 0929 01/12/19 1003 Monitor Interpretation: Atrial Fibrillation Assessment and Plan Problems: (1) Subdural hematoma Status: Acute Assessment & Plan: Probably some old blood and new bleeding. She may be having focal seizures with it as well. Will continue the Keppra as recommended by neurology. The patient and her family have decided they do not want to pursue any aggressive interventions such as transfer/surgery. She does understand if she did have recurrent bleeding her condition could worsen, even to the point of . She will definitely not be able to have any kind of anticoagul ant/antiplatelet therapy. Repeat CT performed this morning, shows some reduction in midline shift from 5mm to 3mm and hematoma is the same size as previous CT. She has worsened in symptoms this morning, her and the family would like to pursue hospice options. Will have social work see patient and family. (2) UTI (urinary tract infection) Status: Resolved Assessment & Plan: She has pyuria on UA. Urine culture pending. Will place on IV Rocephin based on her previous urine culture results. Modify as needed. (3) CHRONIC ATRIAL FIBRILLATION Status: Chronic Assessment & Plan: Contineu diltiazem for rate control. She is not a candidate for anticoagulation therapy due to previous/current intracranial bleeds. (4) HYPOTHYROIDISM, UNSPECIFIED Status: Chronic Assessment & Plan: Continue replacement therapy. (5) Pelvic fracture Status: Acute Assessment & Plan: She is approximately 6 weeks out from injury. Will work on some basic mobilization. Exam Sepsis Risk: No Definite Risk SUSAN CLAY Jan 14, 2019 10:24
[2019-01-14 11:51] VITALS: BP 132/85
[2019-01-14] MEDS ORDERED: DILTIAZEM CD 120 MG CAPCR PO ONE (11:55)
--- NOTE | 2019-01-14 12:32 | NUR ---
Occupational Therapy Impression Co- treat with PT. Family has decided to pursue Hospice care. Pt. will be d/c from OT services at this time. Occupational Therapy Goals 1. Pt. to perform dressing activities with Min A. 2. Pt. to perform showering activities with Min A. 3. Pt. to perform grooming/hygiene activities with I. 4. Pt. to perform toileting activities with Mod I. Patient's Goal
[2019-01-14] MEDS: cefTRIAXone 1 GM VIAL IVP SCH (14:16)
[2019-01-14 15:32] VITALS: BP 96/61
--- NOTE | 2019-01-14 17:44 | Antimicrobial Stewardship ---
Antimicrobial Time Out Antimicrobial Stewardship MD Service: Hospitalist Indications: UTI Antimicrobial Used CEFTRIAXONE 1G QDAY Start Date: Jan 12, 2019 Culture Results: Yes (PROTEUS MIRABILIS - BETA LACTAM SENSITIVE) Eligible for PO Conversion Eligable for PO Conversion: No Reviewed with Provider Reviewed w/ Provider on Rounds: No Comments Comments Patient has UTI with organism that is sensitive to ceftriaxone. Continue treatment for 5-14 days. JHOANA JACOB Jan 14, 2019 17:44
[2019-01-14 23:30] VITALS: BP 120/76
[2019-01-15 03:10] VITALS: BP 124/70
[2019-01-15] MEDS: LEVOTHYROXINE SOD 0.150 MG TAB PO SCH (05:38)
[2019-01-15] MEDS: oxyCODONE HCL 5 MG CAP PO PRN (05:44)
[2019-01-15 07:32] VITALS: BP 109/55
[2019-01-15] MEDS ORDERED: LEVE500T73 PO (07:55)
--- NOTE | 2019-01-15 08:00 | Hospitalist Depart ---
Discharge Summary Reason for Hosp/Final Diag: (1) Subdural hematoma Status: Acute Hospital Course & Plan: Probably some old blood and new bleeding. She may be having focal seizures with it as well. Will continue the Keppra as recommended by neurology. The patient and her family have decided they do not want to pursue any aggressive interventions such as transfer/surgery. She does understand if she did have recurrent bleeding her condition could worsen, even to the point of . She will definitely not be able to have any kind of anticoagulant/antiplatelet therapy. Repeat CT performed shows some reduction in midline shift from 5mm to 3mm and hematoma is the same size as previous CT. She has worsened in neurological and aphasia symptoms, her and the family would like to pursue hospice options. She will be transferred to [facility] this morning. (2) UTI (urinary tract infection) Status: Resolved Hospital Course & Plan: She has pyuria on UA. Urine culture grew Proteus. She was placed on IV Rocephin, but will discontinue treatment since she is now comfort care. (3) CHRONIC ATRIAL FIBRILLATION Status: Chronic Hospital Course & Plan: Contineu diltiazem for rate control. She is not a candidate for anticoagulation therapy due to previous/current intracranial blee ds. (4) HYPOTHYROIDISM, UNSPECIFIED Status: Chronic Hospital Course & Plan: Continue replacement therapy. (5) Pelvic fracture Status: Acute Hospital Course & Plan: She is approximately 6 weeks out from injury. Will work on some basic mobilization. Departure Latest Vital Signs Vital Signs 01/15/19 07:32 Temp 98.7 Pulse 77 Resp 14 B/P (MAP) 109/55 (73) Pulse Ox 97 O2 Delivery Nasal Cannula O2 Flow Rate 0.5 Weight (Pounds): 135 Weight (Ounces): 9.0 Result Diagram: 01/12/19 0929 01/12/19 1003 Condition: No Change Discharge: Hospice Discharge Instructions Home Meds Active Scripts Levetiracetam (LEVETIRACETAM) 500 Mg Tablet, 500 MG PO BID, #60 TAB Prov:SUSAN CLAY 01/15/19 Oxycodone Hcl (OXYCODONE HCL) 5 Mg Tablet, 5 MG PO QDAY PRN for pain, #20 TAB Prov:NADJA SAMSON MD 12/29/18 Oxycodone Hcl (OXYCONTIN) 10 Mg Tab.er.12h, 10 MG PO Q12H for 30 Days, #60 TAB Prov:NADJA SAMSON MD 12/29/18 Furosemide (FUROSEMIDE) 20 Mg Tablet, 1 TAB PO DAILY for 90 Days, #90 TAB 4 Refills Prov:NADJA SAMSON MD 12/15/18 Levothyroxine Sodium (LEVOTHYROXINE SODIUM) 150 Mcg Tablet, 1 TAB PO QDAY for 90 Days, #90 TAB 4 Refills Prov:NADJA SAMSON MD 08/05/18 Potassium Chloride (Potassium Chloride) 20 Meq Tablet.er, 1 TAB PO DAILY for 90 Days, #90 TAB 4 Refills Prov:NADJA SAMSON MD 06/05/18 Diltiazem Hcl (DILTIAZEM 24HR ER) 240 Mg Cap.er.24h, 1 CAP PO QDAY, #90 TAB 4 Refills Prov:NADJA SAMSON MD 06/05/18 Estradiol (ESTRACE) 42.5 Gm Cream.appl, 1 GM VG twice weekly for 90 Days, #90 JOSEF 4 Refills Prov:NADJA SAMSON MD 04/10/18 Gabapentin (GABAPENTIN) 100 Mg Capsule, 1-2 CAP PO BID, #4 CAPSULE 11 Refills take one cap in the am and two cap in the pm Prov:NADJA SAMSON MD 04/07/18 Ranitidine Hcl (ZANTAC 75) 75 Mg Tablet, 1 TAB PO DAILY, #90 TAB 4 Refills Prov:NADJA SAMSON MD 12/03/17 Polyethylene Glycol 3350 (POLYETHYLENE GLYCOL 3350) 17 Gm Powd.pack, 17 GM PO QDAY, #30 PACKET Prov:DAVID MERCADO MD 09/05/17 Docusate Sodium (COLACE) 100 Mg Capsule, 1 CAP PO BID, #180 CAPSULE 3 Refills Prov:JENNIFER MILLS APRN TACKER OFF-C 03/11/17 Bisacodyl (DULCOLAX) 10 Mg Supp.rect, 1 SUPP.RECT RC DAILY PRN for CONSTIPATION, #15 SUPP.RECT 11 Refills Prov:MURTAZA CANTU MD 02/13/17 Reported Medications Vit A,C & E/Lutein/Minerals (OCUVITE TABLET) 1 Each Tablet, 1 EACH PO DAILY 04/29/18 Acetaminophen (TYLENOL EXTRA STRENGTH) 500 Mg Tablet, 2 TAB PO TID, CAP 04/29/18 Magnesium Hydroxide (MILK OF MAGNESIA) 400 Mg/5 Ml Oral.susp, 30 ML PO DAILY PRN for CONSTIPATION, BOTTLE 03/12/18 Dextran 70/Hypromellose (ARTIFICIAL TEARS EYE DROPS) 15 Ml Drops, 1 DROP OP TID for Dry Eyes Apply 1 drop to each eye three times daily. 03/12/18 Prednisolone Sod Phos 15 Mg/5 Ml (PREDNISOLONE SOD PHOS 15 MG/5 ML) 15 Mg/5 Ml Solution, 1 DROP OP BID for Glaucoma, BOT Apply 1 drop to left eye BID. 03/12/18 Calcium Carbonate/Vitamin D3 (CALCIUM 500 + D TABLET) 1 Each Tablet, 1 TAB PO BID 10/30/17 Oxygen (OXYGEN) Inha, 1 L INH, L 11/23/16 Diet: Regular Activity: As Tolerated Copies to: NADJA SAMSON MD ; Venous Thromboembolism Antithrombotics Is Pt On Any Antithrombotics?: No SUSAN CLAY Jan 15, 2019 08:00
[2019-01-15] MEDS: ACETAMINOPHEN 325 MG TAB PO PRN (08:01)
[2019-01-15] MEDS: GABAPENTIN 100 MG CAP PO SCH (08:40)
[2019-01-15] MEDS: levETIRAcetam 500 MG TAB PO SCH (08:40)
[2019-01-15] MEDS: DOCUSATE SODIUM 100 MG CAP PO SCH (08:40)
[2019-01-15] MEDS: CALCIUM CARBONATE/VITAMIN D3 PO SCH (08:40)
--- NOTE | 2019-01-15 08:41 | NUR ---
AM cardizem given even though out of parameter per REGISTERED ACCOUNT ADMINISTRATOR
[2019-01-15] MEDS ORDERED: DILTIAZEM CD 120 MG CAPCR PO SCH (09:00)
[2019-01-19] MEDS ORDERED: OXYC-823 PO (12:45)
[2019-01-19] MEDS ORDERED: PANT40TA65 PO (14:46)
[2019-01-19] MEDS ORDERED: OXYC5TAB38 PO (15:11)
[2019-01-20] MEDS ORDERED: FENT-15 TD (17:25)
[2019-01-20] MEDS ORDERED: OXYC5TAB38 PO (17:25)
== END 2019-01-15 09:45 | disposition hospice, inpatient (51) | DRG 65 ==
LOC: ER 09:16 → MED 12:07
PROVIDERS: ADMIT Internal Medicine; ATTEND Internal Medicine
DX: I62.02 Nontraumatic subacute subdural hemorrhage (principal); N39.0 Urinary tract infection, site not specified; B02.29 Other postherpetic nervous system involvement; I48.2 Chronic atrial fibrillation; R47.01 Aphasia; G89.29 Other chronic pain; Z66 Do not resuscitate; E03.9 Hypothyroidism, unspecified; S32.9XXD Fracture of unspecified parts of lumbosacral spine and pelvis, subsequent encounter for fracture with routine healing; R32 Unspecified urinary incontinence; R29.701 NIHSS score 1; R40.2412 Glasgow coma scale score 13-15, at arrival to emergency department; M81.0 Age-related osteoporosis without current pathological fracture; I50.9 Heart failure, unspecified; M06.9 Rheumatoid arthritis, unspecified; Z90.49 Acquired absence of other specified parts of digestive tract; Z88.5 Allergy status to narcotic agent; Z87.891 Personal history of nicotine dependence
CPT/HCPCS: 36415; 70450; 81001; 82040; 82247; 82310; 82374; 82435; 82565; 82947; 84075; 84132; 84155; 84295; 84450; 84460; 84484; 84520; 85025; 85610; 85730; 87077; 87088; 87186; 93005; 96365; 97161; 97165; 99285; J0696; J1953; J7030; J7050

== ENCOUNTER → 2019-01-12 | Outpatient (CLI) | payer MEDICARE ==
[2018-12-02 10:39] VITALS: BMI 21.3
[~2019-01-12] MED LIST changes: +LEVE500T73 PO; +PANT40TA65 PO
== END ==
LOC: AMB 08:55
PROVIDERS: ATTEND Nurse Practitioner
DX: R10.13 Epigastric pain (principal); R53.1 Weakness; R47.81 Slurred speech; R20.2 Paresthesia of skin; R09.02 Hypoxemia
CPT/HCPCS: A0425; A0427

== ENCOUNTER → 2019-01-15 | Outpatient (CLI) | payer MEDICARE, MEDICAID ==
[2019-01-13 12:10] VITALS: BMI 20.5
[~2019-01-15] MED LIST changes: +FENT-15 TD; +LEVE500T73 PO; +PANT40TA65 PO
== END ==
LOC: AMB 09:36
PROVIDERS: ATTEND Nurse Practitioner
DX: S06.5X9A Traumatic subdural hemorrhage with loss of consciousness of unspecified duration, initial encounter (principal); Z51.5 Encounter for palliative care
CPT/HCPCS: A0425; A0428

== ENCOUNTER → 2019-03-17 | Outpatient (REF) | payer MEDICARE, MEDICAID ==
[2019-01-13 12:10] VITALS: BMI 20.5
[~2019-03-17] MED LIST changes: +CALC-949 PO; +FENT-17 TD; +OXYC-827 PO; +OXYC20TA99 PO; +PANT20TA27 PO; +POLY17PO25 PO
== END ==
LOC: ZZLCC 15:12
PROVIDERS: ATTEND Family Medicine
DX: I60.9 Nontraumatic subarachnoid hemorrhage, unspecified (principal); I48.91 Unspecified atrial fibrillation; E03.9 Hypothyroidism, unspecified; H40.9 Unspecified glaucoma; H04.123 Dry eye syndrome of bilateral lacrimal glands; R60.0 Localized edema; K21.9 Gastro-esophageal reflux disease without esophagitis; G60.3 Idiopathic progressive neuropathy; M62.81 Muscle weakness (generalized); R26.2 Difficulty in walking, not elsewhere classified; L89.150 Pressure ulcer of sacral region, unstageable
CPT/HCPCS: 82310; 82374; 82435; 82565; 82947; 84132; 84295; 84443; 84520; 85027

== ENCOUNTER → 2019-05-05 | Outpatient (REF) | payer MEDICARE, MEDICAID ==
[2019-01-13 12:10] VITALS: BMI 20.5
[~2019-05-05] MED LIST changes: +AMIN887L16 PO; +LACT237L63 PO; +MULT-839 PO; -OMEP-125 PO; +OMEP-126 PO; -RANI-375 PO; +RANI-886 PO
== END ==
LOC: ZZLCC 18:37
PROVIDERS: ATTEND Family Medicine
DX: E03.9 Hypothyroidism, unspecified (principal)
CPT/HCPCS: 84443

== ENCOUNTER → 2019-06-16 | Outpatient (REF) | payer MEDICARE, MEDICAID ==
[2019-01-13 12:10] VITALS: BMI 20.5
[~2019-06-16] MED LIST changes: +FLUT16SP19 NS; +PREG50CA48 PO
== END ==
LOC: ZZLCC 06:34
PROVIDERS: ATTEND Family Medicine
DX: E03.9 Hypothyroidism, unspecified (principal)
CPT/HCPCS: 84443